=== PATIENT | female | born 2000 | race Caucasian/White ===

== ENCOUNTER 2020-01-13 23:43 | Observation (INO) | payer MEDICAID, SELFPAY ==
[2020-01-13 23:59] VITALS: BP 152/91; PULSE 72; RESP 16; TEMP 36.7; O2SAT 100; BMI 20.3
--- NOTE | 2020-01-14 00:14 | CT_ITS ---
EXAMINATION: CT ABDOMEN AND PELVIS WITHOUT CONTRAST CLINICAL INFORMATION: Abdominal pain, status post recent ovarian cyst removal COMPARISON: None TECHNIQUE: Multidetector volumetric imaging was performed from the superior aspect of the liver through the pubic symphysis. Sagittal and coronal reformatted images were obtained on the technologist's workstation. This CT examination was performed using dose optimization techniques as appropriate, variously including the following: *Automated exposure control *Adjustment of mA and/or kV according to patient size (this includes techniques or standardized protocols for targeted exams where dose is matched to indication/reason for exam; i.e. extremities or head) *Use of iterative reconstruction technique DLP: 392 mGy-cm FINDINGS: LUNG BASES: The visualized lung bases are unremarkable. LIVER, GALLBLADDER, AND BILIARY TREE: The liver is normal in size, shape, and attenuation. No focal hepatic lesion or biliary ductal dilatation is present. The gallbladder is unremarkable with no evidence of radiopaque gallstones, gallbladder wall thickening, or obvious pericholecystic inflammatory changes. PANCREAS: Unremarkable. SPLEEN: Unremarkable. ADRENAL GLANDS: Unremarkable. KIDNEYS AND URETERS: The kidneys are normal in size, shape, and attenuation. No hydronephrosis, hydroureter, or calculi seen. No perinephric stranding. BLADDER: Unremarkable. GASTROINTESTINAL TRACT: The small and large bowel are unremarkable. The appendix is unremarkable. ABDOMINAL WALL: Small foci of free air noted in the lower anterior abdominal wall, presumably postoperative. LYMPH NODES: No lymphadenopathy is seen, though assessment is limited in the absence of intravenous contrast. VASCULAR: Unremarkable. PELVIC VISCERA: Suboptimal assessment without intravenous contrast. Small to moderate volume of free fluid in the posterior pelvis, with a small amount of layering hyperdensity suggesting blood products in the setting of recent surgery. Scattered free air is present, presumably postoperative given the patient history. OSSEOUS STRUCTURES: Unremarkable. CT/CT abdomen pelvis wo con IMPRESSION: Small to moderate amount of layering pelvic free fluid, with some dependent hyperdensity suggesting blood products in the setting of recent surgery. Limited assessment for organized collection without intravenous contrast. Scattered foci of gas in the abdomen/pelvis and abdominal wall, presumably postoperative.
[2020-01-14] MEDS: ondansetron HCL 4 MG/2 ML VIAL IVPUSH ×2 (00:49→08:22)
[2020-01-14] MEDS: LORazepam 2 MG/ML VIAL 1 MG IVPUSH (00:49)
[2020-01-14 00:50] LABS: MANUAL DIFF FLAG NO
[2020-01-14] MEDS: 0.9 % Sodium Chloride 500 ML 1000 ML IV (00:52)
[2020-01-14 00:56] LABS: Basophils Percent Auto 0.2 % (0-2); Eosinophils Percent Auto 0.1 % (0-4); Hematocrit 38.6 % (37-47); Hemoglobin 13.2 g/dl (12.0-16.0); Imm Gran Abs Auto 0.09 X10*3/uL (0.00-0.03); Imm Gran Pct Auto 0.5 % (0.0-0.4); Lymphocytes Percent Auto 11.6 % (20-40); Mean Corpuscular HGB Conc 34.2 g/dl (31.0-35.0); Mean Corpuscular Hemoglobin 29.1 pg (27.0-33.0); Monocytes Absolute Auto 0.9 X10*3/uL (0.1-1.2); Monocytes Percent Auto 5.4 % (2-11); Neutrophils Percent Auto 82.2 % (45-73); Platelet Count 329 X10*3/uL (160-400); Red Blood Count 4.54 X10*6/uL (4.20-5.50)
--- NOTE | 2020-01-14 00:56 | ED_ITS ---
HPI - Abdominal Pain General Chief Complaint: Abdominal Pain Stated Complaint: vomiting Time Seen by Provider: 01/14/20 00:07 Source: patient Mode of arrival: ambulatory Limitations: no limitations History of Present Illness HPI narrative: 19-year-old female who is status post left ovarian cyst removal at [facility], patient developed abdominal pain and nausea and vomiting after the procedures, patient presented twice to [facility] ER (ER record were requested) according the patient statement 'they did nothing for her' patient appears very anxious, vomiting, complaining of diffuse abdominal pain. Descri bed it as a constant pain, patient rated the pain as severe, nothing makes the pain worse or better, pain was associated with nausea and vomiting, and anxiety. Related Data Allergies Allergy/AdvReac Type Severity Reaction Status Date / Time haloperidol [From Haldol] AdvReac Unknown Verified 01/14/20 00:14 Review of Systems Review of Systems All other systems are reviewed and are negative Constitutional: Reports as per HPI and Reports no additional constitutional complaints Eyes: Reports as per HPI and Reports no additional eye complaints Reports system reviewed and no additional complaints, except as documented Cardiovascular: Reports as per HPI and Reports no additional cardiovascular complaints Respiratory: Reports as per HPI and Reports no additional respiratory complaints Gastrointestinal: Reports as per HPI and Reports no additional gastrointestinal complaints Genitourinary: Reports no additional female genitourinary complaints Musculoskeletal: Reports no additional musculoskeletal complaints Skin/Breast: Reports system reviewed and no additional complaints, except as docu Psychiatric: Reports no additional psychiatric complaints Endocrine: Reports no additional endocrine complaints Hematologic/Lymphatic: Reports no additional hematologic/lymphatic complaints Allergic/Immunologic: Reports no additional allergic/immunologic complaints Reports system reviewed and no additional complaints, except as documented and Reports Abnormal speech present Physical Exam Vital Signs: Vital Signs: Vital Signs Temp Pulse Resp BP Pulse Ox 01/13/20 23:59 98.0 F 72 16 152/91 H 100 Body Mass Index 20.3 vital signs have been reviewed as normal and appeared to be correct. Hypertensive. Heart rate normal. Respiration rate normal. Temperature normal. Oxygen saturation normal. Appearance: Alert. Oriented X3. anxious. Head: Normal external exam. Normocephalic. Atraumatic. No [place] signs noted. No raccoon eyes noted Eyes: PERRLA. EOMI. Conjunctiva and sclera normal. Eyelids normal. ENT: EAC normal. TM's Normal. Pharynx normal. Uvula midline. Moist mucous membranes. No trismus noted. No drooling noted. No muffled voice noted. Neck: Normal inspection. Neck supple. FROM. No adenopathy. Thyroid Normal. No meningeal signs. No neck mass noted. CVS: Normal heart rate and rhythm. Heart sound normal. No murmurs noted. Pulses normal throughout. Respiratory: No respiratory distress. Painless inspiration. Breath sounds normal. No wheezes/rales/rhonchi noted. Chest nontender. No accessory muscle usage noted or decreased air movement noted. Abdomen: incisions are dry, clean, and intact, tenderness. Bowel sounds normal in all 4 quadrants. No distention noted. No organomegaly noted. No visible i njury noted. Back: No CVA tenderness. Full range of motion noted. Skin: Skin warm and dry. Normal skin color. Normal skin turgor. No rashes/lesions/lacerations noted. Extremities: No lower extremity edema. Extremities exhibit normal range of motion. Extremities nontender. Neuro: Oriented X 3. No motor deficit. No sensory deficit. Reflexes normal. MDM - Abdominal Pain MDM Narrative Medical decision making narrative: Assessment and plan. 19-year-old female status post left ovarian cyst removal at [facility] week ago, patient had 2 visits to [facility] ER after the surgery, multiple medications to control patient's symptoms given in the emergency department with no relief of her symptoms, patient had a CT which showed postoperative change. admit the patient for intractable vomiting, hydration, aggressive antiemetic medication. Lab Data Result diagrams: 01/14/20 00:43 01/14/20 00:43 Labs: Lab Results 01/14/20 01/14/20 01/14/20 Range/Units 00:43 00:43 00:43 WBC 17.0 H (4.8-10.8) X10*3/uL RBC 4.54 (4.20-5.50) X10*6/uL Hgb 13.2 (12.0-16.0) g/dl Hct 38.6 (37-47) % MCV 85.0 (80-98) fL MCH 29.1 (27.0-33.0) pg MCHC 34.2 (31.0-35.0) g/dl RDW 13.0 (11.0-16.0) % Plt Count 329 (160-400) X10*3/uL MPV 10.0 (9.4-12.3) fL Immature Gran % (Auto) 0.5 H (0.0-0.4) % Neut % (Auto) 82.2 H (45-73) % Lymph % (Auto) 11.6 L (20-40) % [place] % (Auto) 5.4 (2-11) % Eos % (Auto) 0.1 (0-4) % Baso % (Auto) 0.2 (0-2) % Lymph # (Auto) 2.0 (1.2-4.9) X10*3/uL [place] # (Auto) 0.9 (0.1-1.2) X10*3/uL Eos # (Auto) 0.0 (0.0-0.4) X10*3/uL Baso # (Auto) 0.0 (0.0-0.2) X10*3/uL Abs Immat Gran (auto) 0.09 H (0.00-0.03) X10*3/uL Absolute Neuts (auto) 14.0 H (2.0-8.3) X10*3/uL Absolute Nucleated RBC 0.000 (0.0-0.012) X10*3/uL Nucleated RBC % (auto) 0.0 (0.0-0.2) /100WBC Sodium 140 (135-145) mmol/L Potassium 3.5 (3.3-5.1) mmol/l Chloride 103 (96-108) mmol/L Carbon Dioxide 23 (22-29) mmol/L Anion Gap 18 (12-20) BUN 9 (9-16) mg/dL Creatinine 0.72 (0.5-1.4) mg/dL Estim Creat Clear Calc 102.6 Estimated GFR > 60 Random Glucose 123 H (60-115) mg/dL Calcium 9.5 (8.4-10.2) mg/dL Total Bilirubin 0.7 (0.0-1.0) mg/dL Direct Bilirubin 0.3 (0.0-0.5) mg/dL AST 18 (5-31) U/L ALT 14 (0-31) U/L Alkaline Phosphatase 64 (39-117) U/L Total Protein 7.5 (6.5-8.0) g/dL Albumin 4.8 (3.5-5.0) g/dL Lipase 20 (8-78) U/L Beta HCG, Quant < 2 mIU/mL Urine Color Urine Appearance Urine pH (5.0-8.0) Ur Specific [place] (1.005-1.025) Urine Protein (NEG-TRACE) MG/DL Urine Glucose (UA) (NEG) MG/DL Urine Ketones (NEG) MG/DL Urine Blood (NEG) Urine Nitrite (NEG) Ur Leukocyte Esterase (NEG) Urine RBC (0) /HPF Urine WBC (0-4) /HPF Ur Squamous Epith Cells /LPF Urine Bacteria /LPF Urine Test (NEGATIVE) 01/14/20 01/14/20 Range/Units 00:55 00:55 WBC (4.8-10.8) X10*3/uL RBC (4.20-5.50) X10*6/uL Hgb (12.0-16.0) g/dl Hct (37-47) % MCV (80-98) fL MCH (27.0-33.0) pg MCHC (31.0-35.0) g/dl RDW (11.0-16.0) % Plt Count (160-400) X10*3/uL MPV (9.4-12.3) fL Immature Gran % (Auto) (0.0-0.4) % Neut % (Auto) (45-73) % Lymph % (Auto) (20-40) % [place] % (Auto) (2-11) % Eos % (Auto) (0-4) % Baso % (Auto) (0-2) % Lymph # (Auto) (1.2-4.9) X10*3/uL [place] # (Auto) (0.1-1.2) X10*3/uL Eos # (Auto) (0.0-0.4) X10*3/uL Baso # (Auto) (0.0-0.2) X10*3/uL Abs Immat Gran (auto) (0.00-0.03) X10*3/uL Absolute Neuts (auto) (2.0-8.3) X10*3/uL Absolute Nucleated RBC (0.0-0.012) X10*3/uL Nucleated RBC % (auto) (0.0-0.2) /100WBC Sodium (135-145) mmol/L Potassium (3.3-5.1) mmol/l Chloride (96-108) mmol/L Carbon Dioxide (22-29) mmol/L Anion Gap (12-20) BUN (9-16) mg/dL Creatinine (0.5-1.4) mg/dL Estim Creat Clear Calc Estimated GFR Random Glucose (60-115) mg/dL Calcium (8.4-10.2) mg/dL Total Bilirubin (0.0-1.0) mg/dL Direct Bilirubin (0.0-0.5) mg/dL AST (5-31) U/L ALT (0-31) U/L Alkaline Phosphatase (39-117) U/L Total Protein (6.5-8.0) g/dL Albumin (3.5-5.0) g/dL Lipase (8-78) U/L Beta HCG, Quant mIU/mL Urine Color STRAW Urine Appearance CLEAR Urine pH 8.5 H (5.0-8.0) Ur Specific [place] 1.020 (1.005-1.025) Urine Protein NEG (NEG-TRACE) MG/DL Urine Glucose (UA) NEG (NEG) MG/DL Urine Ketones >=80 (NEG) MG/DL Urine Blood 2+ H (NEG) Urine Nitrite NEG (NEG) Ur Leukocyte Esterase NEG (NEG) Urine RBC 0 (0) /HPF Urine WBC 0-2 (0-4) /HPF Ur Squamous Epith Cells 3+ /LPF Urine Bacteria NONE /LPF Urine Test NEGATIVE (NEGATIVE) Imaging Data CT scan - abdomen: Radiologist's impression: Small to moderate amount of layering pelvic free fluid, with some dependent hyperdensity suggesting blood products in the setting of recent surgery. Limited assessment for organized collection without intravenous contrast. Scattered foci of gas in the abdomen/pelvis and abdominal wall, presumably postoperative. Discharge Plan Discharge Clinical Impression: Intractable vomiting Patient Disposition: Admitted As Inpatient [facility] Past Medical History Medical History ADHD Anxiety Asthma Ovarian cyst Social History Social History Advance Directives: No Advance Directives Information Provided: Yes
[2020-01-14 01:03] LABS: Glucose Urine UA NEG (NEG); Leukocyte Esterase Urine NEG (NEG); Nitrite Urine NEG (NEG); PH 8.5 (5.0-8.0); Urine Blood 2+ (NEG); Urine Ketones >=80 MG/DL (NEG); Urine Protein NEG (NEG-TRACE)
[2020-01-14 01:04] LABS: Appearance Urine CLEAR; Color Urine STRAW; UPreg QC Valid YES; Urine Pregnancy NEGATIVE (NEGATIVE)
[2020-01-14 01:09] LABS: RBC Urine 0 /HPF (0); Squamous Epithelial Cell Urine 3+ /LPF; WBC Urine 0-2 /HPF (0-4)
[2020-01-14 01:13] LABS: Anion Gap 18 (12-20); Blood Urea Nitrogen 9 mg/dL (9-16); Calcium 9.5 mg/dL (8.4-10.2); Carbon Dioxide 23 mmol/L (22-29); Chloride 103 mmol/L (96-108); Creatinine Clr Calc Pharmacy 102.6; Estimated Glomerular Filt Rate > 60; Glucose Random 123 mg/dL (60-115); Lipase 20 U/L (8-78); Potassium 3.5 mmol/l (3.3-5.1); Sodium 140 mmol/L (135-145)
[2020-01-14 01:14] LABS: Alanine Aminotransferase 14 U/L (0-31); Albumin Level 4.8 g/dL (3.5-5.0); Alkaline Phosphatase 64 U/L (39-117); Aspartate Amino Transferase 18 U/L (5-31); Bilirubin Direct 0.3 mg/dL (0.0-0.5); Bilirubin Total 0.7 mg/dL (0.0-1.0); Total Protein 7.5 g/dL (6.5-8.0)
[2020-01-14 01:20] LABS: HCG Quantitative < 2 mIU/mL
[2020-01-14] MEDS: Morphine Sulfate 2 MG/ML CARTRIDGE 1 MG IVPUSH (01:59)
[2020-01-14] MEDS: Metoclopramide HCl 10 MG/2 ML VIAL IVPUSH (01:59)
[2020-01-14 02:04] VITALS: BP 137/102; PULSE 56; RESP 16; O2SAT 100
--- NOTE | 2020-01-14 02:11 | PC.NURSE ---
Pt medicated with morphine and reglan as charted. Pt less distressed at this time than upon arrival. Pt immediately became more relaxed after morphine admin, lights lowered for pt rest.
--- NOTE | 2020-01-14 02:37 | P.HPIM_ITS ---
History of Present Illness Date of Service: 01/14/20 Chief Complaint: Nausea/vomiting this is a 19-year-old female with past medical history of asthma presents to the hospital with nausea vomiting. Patient reports that she underwent an ovarian cyst removal at [facility] on Tuesday but started developing nausea and vomiting yesterday the which improved to slightly through the day but reoccurred in the evening prior to presentation. Patient denies any fever or chills, no abdominal pain, no urinary symptoms and no vaginal discharge. She reports no complications from the surgery. She reports mild constipation as a result of the surgery but otherwise has no other complaints. She smokes marijuana daily and reports that taking a hot shower usually really helped with the nausea although tonight she did not receive any relief. Patient otherwise denies any headache, change in vision, chest pain, shortness of breath, no lower extremity edema. No numbness returned on arrival to the ED hemodynamically stable except for of elevated blood pressure. Labs are significant for WBC count of 17,[address] otherwise [address]able. UA negative. CT abdomen shows small to moderate amount of layering pelvic free fluid with some dependent hyperdensity suggesting blood products in the setting of recent surgery. Scattered foci of gas in the abdomen pelvis and abdominal 1 presumably postoperatively. Past medical history: Asthma , ADHD, anxiety surgical history: Denies Family history: Crohn's disease in father Social history: Comes from home, denies tobacco, alcohol. Smokes marijuana with no other illicit drugs Review of Systems Review of Systems: Yes all other systems are reviewed and are negative [facility] Medical History ADHD Anxiety Asthma Ovarian cyst Social History Advance Directives: No Advance Directives Information Provided: Yes Meds Allergies Allergy/AdvReac Type Severity Reaction Status Date / Time haloperidol [From Haldol] AdvReac Unknown Verified 01/14/20 00:14 Home Medications Medication Instructions Recorded Confirmed Type albuterol sulfate [ProAir HFA] 2 puff INHALATION Q4-6H PRN 01/14/20 01/14/20 History dextroamphetamine-amphetamine 30 mg PO DAILY 01/14/20 01/14/20 History [Adderall] Physical Exam Vital Signs and Narrative: Vital Signs: Last Vital Signs Temp 98.0 F 01/13/20 23:59 Pulse 56 01/14/20 02:04 Resp 16 01/14/20 02:04 BP 137/102 H 01/14/20 02:04 Pulse Ox 100 01/14/20 02:04 Body Mass Index 20.3 Const: General: cooperative and no acute distress Orientati on/consciousness: patient oriented x3 Eyes: General: appearance normal, both eyes and all related structures Pupils: Equal, round and reactive pupils present Resp: Effort & Inspection: normal respiratory effort and able to speak in complete sentences Auscultation: clear to auscultation bilaterally Cardio: Rate: regular rate Rhythm: regular rhythm GI: Palpation (GI): Soft to palpation Auscultation: normal bowel sounds Skin: General skin exam: no rashes or lesions noted Neuro: General: patient oriented x3 Cranial nerves: Yes Equal, round and reactive pupils present Cognition (Neuro): normal cognition Extrem: General: Yes normal to inspection and Yes no pedal edema Results Labs Labs: Laboratory Tests 01/14/20 01/14/20 01/14/20 00:43 00:43 00:43 WBC 17.0 H RBC 4.54 Hgb 13.2 Hct 38.6 MCV 85.0 MCH 29.1 MCHC 34.2 RDW 13.0 Plt Count 329 MPV 10.0 Immature Gran % (Auto) 0.5 H Neut % (Auto) 82.2 H Lymph % (Auto) 11.6 L [place] % (Auto) 5.4 Eos % (Auto) 0.1 Baso % (Auto) 0.2 Lymph # (Auto) 2.0 [place] # (Auto) 0.9 Eos # (Auto) 0.0 Baso # (Auto) 0.0 Abs Immat Gran (auto) 0.09 H Absolute Neuts (auto) 14.0 H Absolute Nucleated RBC 0.000 Nucleated RBC % (auto) 0.0 Sodium 140 Potassium 3.5 Chloride 103 Carbon Dioxide 23 Anion Gap 18 BUN 9 Creatinine 0.72 Estim Creat Clear Calc 102.6 Estimated GFR > 60 Random Glucose 123 H Calcium 9.5 Total Bilirubin 0.7 Direct Bilirubin 0.3 AST 18 ALT 14 Alkaline Phosphatase 64 Total Protein 7.5 Albumin 4.8 Lipase 20 Beta HCG, Quant < 2 Urine Color Urine Appearance Urine pH Ur Specific [place] Urine Protein Urine Glucose (UA) Urine Ketones Urine Blood Urine Nitrite Ur Leukocyte Esterase Urine RBC Urine WBC Ur Squamous Epith Cells Urine Bacteria Urine Test 01/14/20 01/14/20 00:55 00:55 WBC RBC Hgb Hct MCV MCH MCHC RDW Plt Count MPV Immature Gran % (Auto) Neut % (Auto) Lymph % (Auto) [place] % (Auto) Eos % (Auto) Baso % (Auto) Lymph # (Auto) [place] # (Auto) Eos # (Auto) Baso # (Auto) Abs Immat Gran (auto) Absolute Neuts (auto) Absolute Nucleated RBC Nucleated RBC % (auto) Sodium Potassium Chloride Carbon Dioxide Anion Gap BUN Creatinine Estim Creat Clear Calc Estimated GFR Random Glucose Calcium Total Bilirubin Direct Bilirubin AST ALT Alkaline Phosphatase Total Protein Albumin Lipase Beta HCG, Quant Urine Color STRAW Urine Appearance CLEAR Urine pH 8.5 H Ur Specific [place] 1.020 Urine Protein NEG Urine Glucose (UA) NEG Urine Ketones >=80 Urine Blood 2+ H Urine Nitrite NEG Ur Leukocyte Esterase NEG Urine RBC 0 Urine WBC 0-2 Ur Squamous Epith Cells 3+ Urine Bacteria NONE Urine Test NEGATIVE Imaging CT scan - pelvis: Radiologist's impression: IMPRESSION: Small to moderate amount of layering pelvic free fluid, with some dependent hyperdensity suggesting blood products in the setting of recent surgery. Limited assessment for organized collection without intravenous contrast. Scattered foci of gas in the abdomen/pelvis and abdominal wall, presumably postoperative. Assessment and Plan (1) Intractable vomiting: Qualifiers: Nausea presence: with nausea Vomiting type: unspecified Qualified Code(s): R11.2 - Nausea with vomiting, unspecified Status: Acute (2) S/P removal of ovarian cyst: Status: Acute (3) Leukocytosis: Status: Acute (4) Asthma: Status: Acute (5) ADHD: Status: Acute # intractable vomiting - most likely secondary to cyclic vomiting syndrome in the setting of marijuana use versus surgical complication less likely - daily marijuana smoker and reports relief with hot showers typical of cyclic vomiting syndrome plan: - IV fluids, antiemetics - supportive measures - counseled extensively on avoiding marijuana # leukocytosis - most likely reactive - afebrile, no other evidence of infection - CT abdomen/pelvis negative - UA negative Plan: - IV fluids - follow CBC - if continues to have elevations of leukocytosis consider workup # s/p removal of ovarian cyst - no evidence of complications # asthma - no exacerbation - continue p.r.n. inhaler DVT prophylaxis: Early ambulation
[2020-01-14 04:00] VITALS: BP 144/85; PULSE 70; RESP 19; TEMP 36.2; O2SAT 99
[2020-01-14] MEDS: Lactated Ringers 1,000 ML 100 ML IVCONT ×2 (04:41→13:03)
[2020-01-14] MEDS: Morphine Sulfate 4 MG/ML CARTRIDGE IVPUSH (05:20)
[2020-01-14 07:18] VITALS: BP 122/68; PULSE 63; RESP 18; TEMP 36.6; O2SAT 100
--- NOTE | 2020-01-14 09:10 | MHC.CM.PN ---
LOPEZ 01/14/20 Female @) DX N/V. Pt S/P removal of ovarian cyst @ [facility], last week. Pt had been to [facility] x2 since the surgery. [place] [facility] [place] complication work up. Pt lives with family. She is independent all functional mobility. DP home no services family transport.
--- NOTE | 2020-01-14 10:58 | MHC.CM.PN ---
DC today to home no services family transport
[2020-01-14] MEDS: Morphine Sulfate 2 MG/ML CARTRIDGE IVPUSH (11:08)
[2020-01-14 12:00] VITALS: BP 111/67; PULSE 75; RESP 19; TEMP 36.6; O2SAT 100
[2020-01-14 15:16] VITALS: BP 134/85; PULSE 77; RESP 18; TEMP 36.8; O2SAT 100
--- NOTE | 2020-01-14 17:50 | PM.GYNCN ---
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 The patient is feeling much better no more abdominal pain, no nausea or vomiting, patient tolerated regular diet ambulating and voiding freely, passing gas and bowel movements. 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 - Results Labs CBC & Chem 7: 01/14/20 00:43 01/14/20 00:43 Labs: Short CBC 01/14/20 Range/Units 00:43 WBC 17.0 H (4.8-10.8) X10*3/uL Hgb 13.2 (12.0-16.0) g/dl Hct 38.6 (37-47) % Plt Count 329 (160-400) X10*3/uL BMP 01/14/20 00:43 Sodium 140 Potassium 3.5 Chloride 103 Carbon Dioxide 23 BUN 9 Creatinine 0.72 Calcium 9.5 Liver Function 01/14/20 Range/Units 00:43 Total Bilirubin 0.7 (0.0-1.0) mg/dL Direct Bilirubin 0.3 (0.0-0.5) mg/dL AST 18 (5-31) U/L ALT 14 (0-31) U/L Alkaline Phosphatase 64 (39-117) U/L Albumin 4.8 (3.5-5.0) g/dL Urine 01/14/20 01/14/20 Range/Units 00:55 00:55 Urine Color STRAW Urine Appearance CLEAR Urine pH 8.5 H (5.0-8.0) Ur Specific [place] 1.020 (1.005-1.025) Urine Protein NEG (NEG-TRACE) MG/DL Urine Glucose (UA) NEG (NEG) MG/DL Urine Test NEGATIVE (NEGATIVE) Assessment and Plan (1) Post-operative state: Problem details: postop day 5. Status post laparoscopic ovarian cystectomy Status: Acute Since the patient is pain free, no more nausea and vomiting no GI or symptoms, no fever, CT scan is negative the clinical condition is reassured. Recommend repeat CBC to make sure leukocytosis improving. Instruction given to the patient to call or come to the emergency room if any of the following symptoms occur fever nausea and vomiting, heavy vaginal bleeding, incisional redness or discharge, nausea and vomiting, inability to pass gas or above. All questions answered patient verbalized understand
--- NOTE | 2020-01-14 17:56 | P.DS_ITS ---
DS: Providers Provider Date of admission: 01/14/20 02:36 Primary care physician: Anamaria Dotson MD Consults: 01/14/20 07:46 Consult to Obstetrics / Gynecology Routine Consulting Provider: [facility] Reason for consultation: recent ovarian cyst removal now with nausea vomiting DS: Diagnosis Discharge Diagnosis (1) Intractable vomiting: Status: Resolved (2) Leukocytosis: Status: Acute (3) Asthma: Status: Acute (4) ADHD: Status: Acute DS: Summary Hospital Course Hospital Course: 19-year-old female with recent laparoscopic ovarian cyst removal admitted with intractable nausea vomiting and abdominal pain, CT abdomen on admission shows layering of fluid likely blood products from recent surgery , but no other acute abnormality, patient was started on IV Zofran and supportive treatment, nausea and vomiting was likely secondary to marijuana use, patient nausea vomiting resolved, abdominal pain resolved, homeopathic doctor red was consulted recommended no surgical intervention , cleared by homeopathic doctor, was tolerating regular diet, leukocytosis was likely reactive and resolved, patient was stable discharged home Time Spent with Patient Time attestation: Total time spent providing and/or coordinating discharge services: Physical Exam Vital Signs: Vital Signs: Vital Signs Temp Pulse Resp BP Pulse Ox 01/14/20 15:16 98.2 F 77 18 134/85 100 01/14/20 12:00 97.9 F 75 19 111/67 100 01/14/20 07:18 97.8 F 63 18 122/68 100 01/14/20 04:00 97.2 F 70 19 144/85 H 99 01/14/20 02:04 56 16 137/102 H 100 01/13/20 23:59 98.0 F 72 16 152/91 H 100 Body Mass Index 20.3 Const: General: cooperative and no acute distress Orientation/consciousness: patient oriented x3 Eyes: General: appearance normal, both eyes and all related structures Pupils: Equal, round and reactive pupils present Resp: Effort & Inspection: normal respiratory effort and able to speak in complete sentences Auscultation: clear to auscultation bilaterally Cardio: Rate: regular rate Rhythm: regular rhythm GI: Palpation (GI): Soft to palpation Auscultation: normal bowel sounds Skin: General skin exam: no rashes or lesions noted Neuro: General: patient oriented x3 Cranial nerves: Yes Equal, round and reactive pupils present Cognition (Neuro): normal cognition Extrem: General: Yes normal to inspection and Yes no pedal edema DS: Data Data Completed and Pending Labs on day of discharge: Labs from last 24 hours 01/14/20 01/14/20 01/14/20 00:55 00:55 00:43 WBC RBC Hgb Hct MCV MCH MCHC RDW Plt Count MPV Immature Gran % (Auto) Neut % (Auto) Lymph % (Auto) [place] % (Auto) Eos % (Auto) Baso % (Auto) Lymph # (Auto) [place] # (Auto) Eos # (Auto) Baso # (Auto) Abs Immat Gran (auto) Absolute Neuts (auto) Absolute Nucleated RBC Nucleated RBC % (auto) Sodium Potassium Chloride Carbon Dioxide Anion Gap BUN Creatinine Estim Creat Clear Calc Estimated GFR Random Glucose Calcium Total Bilirubin 0.7 Direct Bilirubin 0.3 AST 18 ALT 14 Alkaline Phosphatase 64 Total Protein 7.5 Albumin 4.8 Lipase Beta HCG, Quant Urine Color STRAW Urine Appearance CLEAR Urine pH 8.5 H Ur Specific [place] 1.020 Urine Protein NEG Urine Glucose (UA) NEG Urine Ketones >=80 Urine Blood 2+ H Urine Nitrite NEG Ur Leukocyte Esterase NEG Urine RBC 0 Urine WBC 0-2 Ur Squamous Epith Cells 3+ Urine Bacteria NONE Urine Test NEGATIVE 01/14/20 01/14/20 00:43 00:43 WBC 17.0 H RBC 4.54 Hgb 13.2 Hct 38.6 MCV 85.0 MCH 29.1 MCHC 34.2 RDW 13.0 Plt Count 329 MPV 10.0 Immature Gran % (Auto) 0.5 H Neut % (Auto) 82.2 H Lymph % (Auto) 11.6 L [place] % (Auto) 5.4 Eos % (Auto) 0.1 Baso % (Auto) 0.2 Lymph # (Auto) 2.0 [place] # (Auto) 0.9 Eos # (Auto) 0.0 Baso # (Auto) 0.0 Abs Immat Gran (auto) 0.09 H Absolute Neuts (auto) 14.0 H Absolute Nucleated RBC 0.000 Nucleated RBC % (auto) 0.0 Sodium 140 Potassium 3.5 Chloride 103 Carbon Dioxide 23 Anion Gap 18 BUN 9 Creatinine 0.72 Estim Creat Clear Calc 102.6 Estimated GFR > 60 Random Glucose 123 H Calcium 9.5 Total Bilirubin Direct Bilirubin AST ALT Alkaline Phosphatase Total Protein Albumin Lipase 20 Beta HCG, Quant < 2 Urine Color Urine Appearance Urine pH Ur Specific [place] Urine Protein Urine Glucose (UA) Urine Ketones Urine Blood Urine Nitrite Ur Leukocyte Esterase Urine RBC Urine WBC Ur Squamous Epith Cells Urine Bacteria Urine Test Discharge Plan Discharge Anticipated Discharge Date/Time: 01/14/20 17:44 Patient Disposition: Home, Self-Care Referrals: Anamaria Dotson MD [Primary Care Provider] - Discharge Medications: Continued dextroamphetamine-amphetamine [Adderall] 30 mg Tablet 30 mg PO DAILY RF: 0 albuterol sulfate [ProAir HFA] 90 mcg/actuation Hfa Aerosol Inhaler 2 puff INHALATION Q4-6H PRN (Reason: Shortness Of Breath Or Wheezing) RF: 0 No Action ondansetron 4 mg tablet,disintegrating 4 mg PO Q8H PRN (Reason: nausea and vomiting) Qty: 20 RF: 0 lorazepam [Ativan] 1 mg tablet 1 mg PO BEDTIME PRN (Reason: sleep) Qty: 10 RF: 0 hyoscyamine sulfate 0.125 mg tablet,disintegrating 0.125 mg PO QID PRN (Reason: dyspepsia) Qty: 10 RF: 0 ondansetron HCl [Zofran] 4 mg tablet 4 mg PO Q6H PRN (Reason: nausea and vomiting) Qty: 14 RF: 0 hydroxyzine HCl 50 mg tablet 50 mg PO TID PRN (Reason: nausea and vomiting) Qty: 10 RF: 0 Discharge Orders: Discharge Order (Routine); Ordered 01/14/20 Ordered By: Negro Gay Activity on Discharge: As tolerated Discharge Date/Time: 01/14/20 19:40 Visit Report Forms: Patient Portal Discharge page Care Plan Goals: treat symptoms Health Concerns: marijuana use Plan of Treatment: counseled on marijuana use
[2020-01-14 19:16] LABS: MANUAL DIFF FLAG SCAN; Mean Corpuscular HGB Conc 33.2 g/dl (31.0-35.0); Mean Corpuscular Hemoglobin 28.9 pg (27.0-33.0); PLT CLUMP 1; Red Cell Distribution Width 13.2 % (11.0-16.0); SCAN SMEAR FLAG 1
[2020-01-14 19:18] LABS: Basophils Percent Auto 0.1 % (0-2); Eosinophils Absolute Auto 0.1 X10*3/uL (0.0-0.4); Eosinophils Percent Auto 0.5 % (0-4); Hematocrit 36.1 % (37-47); Imm Gran Abs Auto 0.06 X10*3/uL (0.00-0.03); Imm Gran Pct Auto 0.4 % (0.0-0.4); Lymphocytes Absolute Auto 4.1 X10*3/uL (1.2-4.9); Lymphocytes Percent Auto 27.9 % (20-40); Mean Platelet Volume 11.4 fL (9.4-12.3); Monocytes Absolute Auto 1.1 X10*3/uL (0.1-1.2); Monocytes Percent Auto 7.1 % (2-11); Neutrophils Absolute Auto 9.5 X10*3/uL (2.0-8.3); Platelet Count 243 X10*3/uL (160-400); Red Blood Count 4.15 X10*6/uL (4.20-5.50); White Blood Count 14.8 X10*3/uL (4.8-10.8)
[2020-01-14 19:42] LABS: SLIDE REVIEW VERIFIED
== END 2020-01-14 19:40 | disposition home or self-care (01) ==
LOC: HO.ED 01-14 02:05 → HO.IMC 01-14 02:56
PROVIDERS: Admitting Provider Internal Medicine; Emergency Provider Emergency Medicine; PCP Pediatrics; Visit Provider Internal Medicine
DX: R10.9 Unspecified abdominal pain (principal); R11.0 Nausea; N99.89 Other postprocedural complications and disorders of genitourinary system; D72.829 Elevated white blood cell count, unspecified; J45.909 Unspecified asthma, uncomplicated; F90.9 Attention-deficit hyperactivity disorder, unspecified type; F41.9 Anxiety disorder, unspecified; I10 Essential (primary) hypertension; F12.20 Cannabis dependence, uncomplicated; Z71.51 Drug abuse counseling and surveillance of drug abuser; Z88.8 Allergy status to other drugs, medicaments and biological substances; Z79.899 Other long term (current) drug therapy; Z90.6 Acquired absence of other parts of urinary tract
CPT/HCPCS: 36415; 74176; 80048; 80076; 81001; 81025; 83690; 84702; 85025; 96361; 96374; 96375; 96376; 99219; 99285; J2060; J2270; J2405; J2765

== ENCOUNTER 2020-01-15 19:48 | Emergency (ER) | payer MEDICAID, SELFPAY ==
[2020-01-15 20:06] VITALS: BP 177/97; PULSE 89; RESP 26; TEMP 37.2; O2SAT 100
[2020-01-15 20:35] VITALS: BP 150/100; PULSE 72; RESP 16; TEMP 37.1; O2SAT 95; BMI 19.5
--- NOTE | 2020-01-15 21:16 | ED.ABDPAIN ---
HPI - Abdominal Pain General Chief Complaint: Abdominal Pain Stated Complaint: vomiting Time Seen by Provider: 01/15/20 21:16 Source: patient and old records reviewed Mode of arrival: ambulatory Limitations: other (won't answer questions, yelling, making very loud noises while being wheeled from triage) History of Present Illness HPI narrative: very difficult to get a history from but she states she had an ovary removed at [facility] last Tuesday they think I'm a fiend, they thought I liked the way the drugs felt. She states that she was then admitted here and taking ibuprofen and tylenol at home she also tried to smoke tonight THC but it didn't help. MD elicited complaint: abdominal pain Pertinent past history: other (just had laparoscopic ovarian cystectomy last Tuesday at [facility] admitted for pain control yesterday here and DC) Onset (ago): day(s) (since surgery ) Location: diffuse Severity: severe Quality: stabbing Radiation: none Migration to: no migration Exacerbating factors: nothing Relieving factors: nothing Context: recent surgery/procedure Associated symptoms: nausea and vomiting Treatments prior to arrival: NSAIDs Related Data Home Medications Medication Instructions Recorded Confirmed albuterol sulfate [ProAir HFA] 2 puff INHALATION Q4-6H PRN 01/14/20 01/14/20 dextroamphetamine-amphetamine 30 mg PO DAILY 01/14/20 01/14/20 [Adderall] Previous Rx's Medication Instructions Recorded lorazepam [Ativan] 1 mg PO BEDTIME PRN #10 tab 01/16/20 ondansetron 4 mg PO Q8H PRN #20 tab 01/16/20 Allergies Allergy/AdvReac Type Severity Reaction Status Date / Time haloperidol [From Haldol] AdvReac Unknown Verified 01/14/20 00:14 Review of Systems Review of Systems ROS unable to be obtained due to agitation, pain, won't answer questions. Physical Exam Vital Signs: Vital Signs: Vital Signs Temp Pulse Resp BP Pulse Ox 01/16/20 02:32 16 117/73 99 01/15/20 21:27 98.2 F 67 20 148/97 H 100 01/15/20 20:35 98.7 F 72 16 150/100 H 95 01/15/20 20:06 98.9 F 89 26 H 177/97 H 100 Body Mass Index 19.5 Appearance: Alert. Oriented X3. Crying loudly, kicking her legs repeatedly and moving up and down Eyes: Pupils equal, round and reactive to light. ENT: Pharynx normal. Neck: Normal inspection. Neck supple. CVS: Normal heart rate and rhythm. Pulses normal. Respiratory: No respiratory distress. Breath sounds normal. Abdomen: Soft and nontender at first but then the patient grimaces at times Skin: Skin warm and dry. Normal skin color. Normal skin turgor. Extremities: No lower extremity edema. No calf ttp Neuro: Oriented X 3. No motor deficit. No sensory deficit. Course Course Course Narrative: patient's degree of pain is out of proportion CT scan not done with IV contrast last time, at this time she is in severe anxiety, thrashing about - IV ativan 2mg ordered, stable VS repeat CT scan negative, troponin repeat negative, lactic stable, afebrile, currently asleep able to pass PO challenge, stable for DC, has been asleep for hours, WBC count due to vomiting MDM - Abdominal Pain MDM Narrative Medical decision making narrative: 19 yo female s/p lap ovarian cystectomy at [facility] 7 days ago comes in with pain and was just DC yesterday from here for pain n/v with post op normal CT scan, returns again for pain, her presentation is somewhat odd as she is moving all around and yelling I would expect with a surgical abdomen she would be more still - she also made some statements that the IV pain medications were helping and that [facility] labeled her as fiend . 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 Lab Data Result diagrams: 01/15/20 21:43 01/15/20 22:13 Labs: Lab Results 01/15/20 01/15/20 01/15/20 Range/Units 21:42 21:43 21:43 WBC 19.5 H (4.8-10.8) X10*3/uL RBC 4.64 (4.20-5.50) X10*6/uL Hgb 13.5 (12.0-16.0) g/dl Hct 39.7 (37-47) % MCV 85.6 (80-98) fL MCH 29.1 (27.0-33.0) pg MCHC 34.0 (31.0-35.0) g/dl RDW 13.2 (11.0-16.0) % Plt Count 345 D (160-400) X10*3/uL MPV 10.1 (9.4-12.3) fL Immature Gran % (Auto) Cancelled Neut % (Auto) Cancelled Lymph % (Auto) Cancelled [place] % (Auto) Cancelled Eos % (Auto) Cancelled Baso % (Auto) Cancelled Lymph # (Auto) Cancelled [place] # (Auto) Cancelled Eos # (Auto) Cancelled Baso # (Auto) Cancelled Abs Immat Gran (auto) Cancelled Absolute Neuts (auto) Cancelled Absolute Nucleated RBC 0.000 (0.0-0.012) X10*3/uL Nucleated RBC % (auto) 0.0 (0.0-0.2) /100WBC Neutrophils % (Manual) 86 H (45-73) % Lymphocytes % (Manual) 8 L (20-40) % Monocytes % (Manual) 5 (2-11) % Basophils % (Manual) 1 (0-1) % Abs Neuts (Manual) 16.8 H (2.2-7.9) X10*3/uL Lymphocytes # (Manual) 1.6 (0.6-4.8) X10*3/uL Monocytes # (Manual) 1.0 (0.0-1.2) X10*3/uL Basophils # (Manual) 0.2 (0.0-0.3) X10*3/uL Platelet Estimate NORMAL (NORMAL) Plt Morphology Comment NORMAL RBC Morphology NORMAL Sodium Cancelled Potassium Cancelled Chloride Cancelled Carbon Dioxide Cancelled Anion Gap Cancelled BUN Cancelled Creatinine Cancelled Estim Creat Clear Calc Cancelled Estimated GFR Cancelled Random Glucose Cancelled Lactic Acid (0.5-2.0) mmol/L Calcium Cancelled Magnesium Cancelled Total Bilirubin Cancelled Direct Bilirubin Cancelled AST Cancelled ALT Cancelled Alkaline Phosphatase Cancelled Total Creatine Kinase (26-140) U/L Troponin I High Sens 16.9 (<3.5-17.0) ng/L Total Protein Cancelled Albumin Cancelled Lipase Cancelled Urine Color Urine Appearance Urine pH (5.0-8.0) Ur Specific [place] (1.005-1.025) Urine Protein (NEG-TRACE) MG/DL Urine Glucose (UA) (NEG) MG/DL Urine Ketones (NEG) MG/DL Urine Blood (NEG) Urine Nitrite (NEG) Ur Leukocyte Esterase (NEG) Urine RBC (0) /HPF Urine WBC (0-4) /HPF Ur Squamous Epith Cells /LPF Amorphous Sediment /LPF Urine Bacteria /LPF Urine Opiates Screen (Not Detect) Ur Barbiturates Screen (Not Detect) Ur Phencyclidine Scrn (Not Detect) Ur Amphetamines Screen (Not Detect) U Benzodiazepines Scrn (Not Detect) Urine Cocaine Screen (Not Detect) U Marijuana (THC) Screen (Not Detect) 01/15/20 01/15/20 01/15/20 Range/Units 21:43 22:13 22:13 WBC (4.8-10.8) X10*3/uL RBC (4.20-5.50) X10*6/uL Hgb (12.0-16.0) g/dl Hct (37-47) % MCV (80-98) fL MCH (27.0-33.0) pg MCHC (31.0-35.0) g/dl RDW (11.0-16.0) % Plt Count (160-400) X10*3/uL MPV (9.4-12.3) fL Immature Gran % (Auto) Neut % (Auto) Lymph % (Auto) [place] % (Auto) Eos % (Auto) Baso % (Auto) Lymph # (Auto) [place] # (Auto) Eos # (Auto) Baso # (Auto) Abs Immat Gran (auto) Absolute Neuts (auto) Absolute Nucleated RBC (0.0-0.012) X10*3/uL Nucleated RBC % (auto) (0.0-0.2) /100WBC Neutrophils % (Manual) (45-73) % Lymphocytes % (Manual) (20-40) % Monocytes % (Manual) (2-11) % Basophils % (Manual) (0-1) % Abs Neuts (Manual) (2.2-7.9) X10*3/uL Lymphocytes # (Manual) (0.6-4.8) X10*3/uL Monocytes # (Manual) (0.0-1.2) X10*3/uL Basophils # (Manual) (0.0-0.3) X10*3/uL Platelet Estimate (NORMAL) Plt Morphology Comment RBC Morphology Sodium 139 Potassium 3.6 Chloride 102 Carbon Dioxide 25 Anion Gap 16 BUN 8 L Creatinine 0.74 Estim Creat Clear Calc 95.5 Estimated GFR > 60 Random Glucose 113 Lactic Acid 1.7 (0.5-2.0) mmol/L Calcium 9.1 Magnesium Total Bilirubin 0.6 Direct Bilirubin 0.3 AST 15 ALT 15 Alkaline Phosphatase 66 Total Creatine Kinase 157 H (26-140) U/L Troponin I High Sens (<3.5-17.0) ng/L Total Protein 7.4 Albumin 4.8 Lipase 26 Urine Color Urine Appearance Urine pH (5.0-8.0) Ur Specific [place] (1.005-1.025) Urine Protein (NEG-TRACE) MG/DL Urine Glucose (UA) (NEG) MG/DL Urine Ketones (NEG) MG/DL Urine Blood (NEG) Urine Nitrite (NEG) Ur Leukocyte Esterase (NEG) Urine RBC (0) /HPF Urine WBC (0-4) /HPF Ur Squamous Epith Cells /LPF Amorphous Sediment /LPF Urine Bacteria /LPF Urine Opiates Screen (Not Detect) Ur Barbiturates Screen (Not Detect) Ur Phencyclidine Scrn (Not Detect) Ur Amphetamines Screen (Not Detect) U Benzodiazepines Scrn (Not Detect) Urine Cocaine Screen (Not Detect) U Marijuana (THC) Screen (Not Detect) 01/15/20 01/15/20 01/15/20 Range/Units 22:13 22:42 22:42 WBC (4.8-10.8) X10*3/uL RBC (4.20-5.50) X10*6/uL Hgb (12.0-16.0) g/dl Hct (37-47) % MCV (80-98) fL MCH (27.0-33.0) pg MCHC (31.0-35.0) g/dl RDW (11.0-16.0) % Plt Count (160-400) X10*3/uL MPV (9.4-12.3) fL Immature Gran % (Auto) Neut % (Auto) Lymph % (Auto) [place] % (Auto) Eos % (Auto) Baso % (Auto) Lymph # (Auto) [place] # (Auto) Eos # (Auto) Baso # (Auto) Abs Immat Gran (auto) Absolute Neuts (auto) Absolute Nucleated RBC (0.0-0.012) X10*3/uL Nucleated RBC % (auto) (0.0-0.2) /100WBC Neutrophils % (Manual) (45-73) % Lymphocytes % (Manual) (20-40) % Monocytes % (Manual) (2-11) % Basophils % (Manual) (0-1) % Abs Neuts (Manual) (2.2-7.9) X10*3/uL Lymphocytes # (Manual) (0.6-4.8) X10*3/uL Monocytes # (Manual) (0.0-1.2) X10*3/uL Basophils # (Manual) (0.0-0.3) X10*3/uL Platelet Estimate (NORMAL) Plt Morphology Comment RBC Morphology Sodium Potassium Chloride Carbon Dioxide Anion Gap BUN Creatinine Estim Creat Clear Calc Estimated GFR Random Glucose Lactic Acid (0.5-2.0) mmol/L Calcium Magnesium 2.0 Total Bilirubin Direct Bilirubin AST ALT Alkaline Phosphatase Total Creatine Kinase (26-140) U/L Troponin I High Sens (<3.5-17.0) ng/L Total Protein Albumin Lipase Urine Color YELLOW Urine Appearance CLEAR Urine pH 8.5 H (5.0-8.0) Ur Specific [place] 1.025 (1.005-1.025) Urine Protein NEG (NEG-TRACE) MG/DL Urine Glucose (UA) NEG (NEG) MG/DL Urine Ketones >=80 (NEG) MG/DL Urine Blood 2+ H (NEG) Urine Nitrite NEG (NEG) Ur Leukocyte Esterase NEG (NEG) Urine RBC 1-4 (0) /HPF Urine WBC 1-4 (0-4) /HPF Ur Squamous Epith Cells 1+ /LPF Amorphous Sediment 2+ /LPF Urine Bacteria 1+ /LPF Urine Opiates Screen Not Detected (Not Detect) Ur Barbiturates Screen Not Detected (Not Detect) Ur Phencyclidine Scrn Not Detected (Not Detect) Ur Amphetamines Screen Not Detected (Not Detect) U Benzodiazepines Scrn Not Detected (Not Detect) Urine Cocaine Screen Not Detected (Not Detect) U Marijuana (THC) Screen POSITIVE H (Not Detect) 10/28/20 Range/Units 00:27 WBC (4.8-10.8) X10*3/uL RBC (4.20-5.50) X10*6/uL Hgb (12.0-16.0) g/dl Hct (37-47) % MCV (80-98) fL MCH (27.0-33.0) pg MCHC (31.0-35.0) g/dl RDW (11.0-16.0) % Plt Count (160-400) X10*3/uL MPV (9.4-12.3) fL Immature Gran % (Auto) Neut % (Auto) Lymph % (Auto) [place] % (Auto) Eos % (Auto) Baso % (Auto) Lymph # (Auto) [place] # (Auto) Eos # (Auto) Baso # (Auto) Abs Immat Gran (auto) Absolute Neuts (auto) Absolute Nucleated RBC (0.0-0.012) X10*3/uL Nucleated RBC % (auto) (0.0-0.2) /100WBC Neutrophils % (Manual) (45-73) % Lymphocytes % (Manual) (20-40) % Monocytes % (Manual) (2-11) % Basophils % (Manual) (0-1) % Abs Neuts (Manual) (2.2-7.9) X10*3/uL Lymphocytes # (Manual) (0.6-4.8) X10*3/uL Monocytes # (Manual) (0.0-1.2) X10*3/uL Basophils # (Manual) (0.0-0.3) X10*3/uL Platelet Estimate (NORMAL) Plt Morphology Comment RBC Morphology Sodium Potassium Chloride Carbon Dioxide Anion Gap BUN Creatinine Estim Creat Clear Calc Estimated GFR Random Glucose Lactic Acid (0.5-2.0) mmol/L Calcium Magnesium Total Bilirubin Direct Bilirubin AST ALT Alkaline Phosphatase Total Creatine Kinase (26-140) U/L Troponin I High Sens 14.9 (<3.5-17.0) ng/L Total Protein Albumin Lipase Urine Color Urine Appearance Urine pH (5.0-8.0) Ur Specific [place] (1.005-1.025) Urine Protein (NEG-TRACE) MG/DL Urine Glucose (UA) (NEG) MG/DL Urine Ketones (NEG) MG/DL Urine Blood (NEG) Urine Nitrite (NEG) Ur Leukocyte Esterase (NEG) Urine RBC (0) /HPF Urine WBC (0-4) /HPF Ur Squamous Epith Cells /LPF Amorphous Sediment /LPF Urine Bacteria /LPF Urine Opiates Screen (Not Detect) Ur Barbiturates Screen (Not Detect) Ur Phencyclidine Scrn (Not Detect) Ur Amphetamines Screen (Not Detect) U Benzodiazepines Scrn (Not Detect) Urine Cocaine Screen (Not Detect) U Marijuana (THC) Screen (Not Detect) ECG Data Attestation: I personally reviewed and interpreted this ECG as follows: ECG interpretation date: 01/15/20 ECG interpretation time: 22:01 Interpretation: Rate: 66 Rhythm: NSR Lennon: normal Normal P waves. Normal LUIZ. Normal QRS complex. ST T wave : normal qTC: normal prior studies: no acute findings The study has been interpreted contemporaneously by me. . Critical Care Time Critical Care Time Critical Care Time: Yes Total Critical Care Time: 60 Attestation: repeat medications, bedside assessment, CT scan, IVF, review old records. I personally attest to this time spent taking care of the patient Discharge Plan Discharge Clinical Impression: Cyclical vomiting Patient Disposition: Home, Self-Care Instructions: Cyclic Vomiting Syndrome (ED) Additional Instructions: stop smoking marijuana it is making you vomit Prescriptions: New ondansetron 4 mg tablet,disintegrating 4 mg PO Q8H PRN (Reason: nausea and vomiting) Qty: 20 RF: 0 lorazepam [Ativan] 1 mg tablet 1 mg PO BEDTIME PRN (Reason: sleep) Qty: 10 RF: 0 No Action dextroamphetamine-amphetamine [Adderall] 30 mg Tablet 30 mg PO DAILY RF: 0 albuterol sulfate [ProAir HFA] 90 mcg/actuation Hfa Aerosol Inhaler 2 puff INHALATION Q4-6H PRN (Reason: Shortness Of Breath Or Wheezing) RF: 0 Referrals: Anamaria Dotson MD [Primary Care Provider] - 2 days [facility] Past Medical History Medical History (Updated 01/16/20 @ 02:11 by Gregoria Venegas DO) ADHD Anxiety Asthma Ovarian cyst Surgical History S/P removal of ovarian cyst Social History Social History Household Members: Family Housing: Apartment Alcohol intake: never Smoking Status: Never smoker Substance Use Type: Marijuana Advance Directives: No Advance Directives Information Provided: No service: No Current occupational status: employed
[2020-01-15 21:27] VITALS: BP 148/97; PULSE 67; RESP 20; TEMP 36.8; O2SAT 100
--- NOTE | 2020-01-15 21:27 | ECG_ITS ---
Test Reason : CHEST PAIN/ANXIETY Blood Pressure : / mmHG Vent. Rate : 066 BPM Atrial Rate : 066 BPM P-R Int : 134 ms QRS Dur : 086 ms QT Int : 382 ms P-R-T Axes : 058 066 053 degrees QTc Int : 400 ms Normal sinus rhythm with sinus arrhythmia Normal ECG No previous ECGs available Referred By: Gregoria Venegas Electronically Signed By:ADAM MATTA MD
--- NOTE | 2020-01-15 21:27 | XR_ITS ---
EXAMINATION: PORTABLE CHEST 1 VIEW CLINICAL INFORMATION: cough . COMPARISON: No recent pertinent prior studies are available for comparison. TECHNIQUE: Portable frontal view of the chest was obtained. FINDINGS: The lungs are well expanded. No focal infiltrate, effusion, edema, or pneumothorax. Cardiac and mediastinal silhouettes are within normal limits for technique. No acute bony abnormality seen. XR/XR chest 1V IMPRESSION: No evidence of acute disease.
[2020-01-15 21:50] LABS: Hematocrit 39.7 % (37-47); Hemoglobin 13.5 g/dl (12.0-16.0); Mean Corpuscular Hemoglobin 29.1 pg (27.0-33.0); Mean Corpuscular Volume 85.6 fL (80-98); Mean Platelet Volume 10.1 fL (9.4-12.3); Platelet Count 345 X10*3/uL (160-400); Red Blood Count 4.64 X10*6/uL (4.20-5.50); Red Cell Distribution Width 13.2 % (11.0-16.0)
[2020-01-15] MEDS: Ketorolac Tromethamine 30 MG/ML VIAL IVPUSH (21:54)
[2020-01-15] MEDS: LORazepam 2 MG/ML VIAL 1 MG IVPUSH (21:55)
[2020-01-15] MEDS: diphenhydrAMINE HCL 50 MG/ML VIAL 25 MG IVPUSH (21:56)
[2020-01-15] MEDS: 0.9 % Sodium Chloride 1,000 ML 999 ML IVCONT (21:57)
[2020-01-15] MEDS: Metoclopramide HCl 10 MG/2 ML VIAL 5 MG IVPUSH (22:00)
[2020-01-15 22:10] LABS: Lactic Acid 1.7 mmol/L (0.5-2.0); WBC ABN SCTR FOR CBC 1
[2020-01-15 22:12] LABS: Basophils Percent Manual 1 % (0-1); Lymphocytes Percent Manual 8 % (20-40); Monocytes Percent Manual 5 % (2-11); Neutrophils Percent Manual 86 % (45-73); Platelet Estimate NORMAL (NORMAL); Platelet Morphology Comment NORMAL; RBC Morphology NORMAL
[2020-01-15 22:14] LABS: Basophils Abs Manual 0.2 X10*3/uL (0.0-0.3); Lymphocytes Absolute Manual 1.6 X10*3/uL (0.6-4.8); White Blood Count 19.5 X10*3/uL (4.8-10.8)
[2020-01-15 22:18] LABS: Neutrophils Absolute Manual 16.8 X10*3/uL (2.2-7.9)
[2020-01-15 22:20] LABS: Troponin-I High Sensitivity 16.9 ng/L (<3.5-17.0)
[2020-01-15] MEDS: LORazepam 2 MG/ML VIAL IVPUSH (22:44)
[2020-01-15 22:47] LABS: Alanine Aminotransferase 15 U/L (0-31); Albumin Level 4.8 g/dL (3.5-5.0); Alkaline Phosphatase 66 U/L (39-117); Aspartate Amino Transferase 15 U/L (5-31); Bilirubin Direct 0.3 mg/dL (0.0-0.5); Bilirubin Total 0.6 mg/dL (0.0-1.0); Total Protein 7.4 g/dL (6.5-8.0)
[2020-01-15 22:49] LABS: Anion Gap 16 (12-20); Blood Urea Nitrogen 8 mg/dL (9-16); Calcium 9.1 mg/dL (8.4-10.2); Carbon Dioxide 25 mmol/L (22-29); Chloride 102 mmol/L (96-108); Creatinine Clr Calc Pharmacy 95.5; Estimated Glomerular Filt Rate > 60; Glucose Random 113 mg/dL (60-115); Lipase 26 U/L (8-78); Potassium 3.6 mmol/l (3.3-5.1); Sodium 139 mmol/L (135-145)
[2020-01-15 22:49] LABS: Glucose Urine UA NEG (NEG); Leukocyte Esterase Urine NEG (NEG); Nitrite Urine NEG (NEG); PH 8.5 (5.0-8.0); Specific Gravity - Urine 1.025 (1.005-1.025); Urine Blood 2+ (NEG); Urine Ketones >=80 MG/DL (NEG); Urine Protein NEG (NEG-TRACE)
--- NOTE | 2020-01-15 22:51 | PC.NURSE ---
pt oob with a stable gait to bathroom. medicated per emar. Pt continues to cry out. Will continue monitor
[2020-01-15 23:00] LABS: Appearance Urine CLEAR; Color Urine YELLOW
[2020-01-15 23:01] LABS: Amorphous Sediment Urine 2+ /LPF; Bacteria Urine 1+ /LPF; Squamous Epithelial Cell Urine 1+ /LPF
[2020-01-15 23:37] LABS: Amphetamine Screen Urine Not Detected (Not Detect); Barbiturates, Urine Not Detected (Not Detect); Benzodiazepines Screen Urine Not Detected (Not Detect); Cannabinoid Screen Urine POSITIVE (Not Detect); Cocaine Screen Urine Not Detected (Not Detect); Opiate Screen Urine Not Detected (Not Detect); Phencyclidine Screen Urine Not Detected (Not Detect)
[2020-01-16] MEDS: iohexoL 350 MG/ML 100 ML INFUS..BTL 85 ML IV (00:31)
[2020-01-16 01:03] LABS: Troponin-I High Sensitivity 14.9 ng/L (<3.5-17.0)
--- NOTE | 2020-01-16 02:31 | PC.NURSE ---
pt has been sleeping rr even and reg. pt is now awake states she feels better and is given saltine crackers, gingeral and ice chips.
[2020-01-16 02:32] VITALS: BP 117/73; RESP 16; O2SAT 99
[2020-01-16 04:00] VITALS: BP 117/72; PULSE 81; RESP 16; TEMP 36.8; O2SAT 100
--- NOTE | 2020-01-16 05:09 | PC.NURSE ---
vitals at 0229 117/73 62 [phone] 14
--- NOTE | 2020-01-16 05:10 | PC.NURSE ---
pt george po fluids and crackers and feels ready for discharge.
--- NOTE | 2020-01-16 22:31 | CT_ITS ---
EXAMINATION: CT ABDOMEN AND PELVIS WITH CONTRAST CLINICAL INFORMATION: Severe abdominal pain. Status post left ovarian cystectomy. COMPARISON: 01/14/2020. TECHNIQUE: Multidetector volumetric images were obtained from the superior aspect of the liver through the pubic symphysis following administration 85 mL of Omnipaque 350 intravenous contrast. Sagittal and coronal reformatted images were obtained on the technologist's workstation. Oral contrast: No This CT examination was performed using dose optimization techniques as appropriate, variously including the following: *Automated exposure control *Adjustment of mA and/or kV according to patient size (this includes techniques or standardized protocols for targeted exams where dose is matched to indication/reason for exam; i.e. extremities or head) *Use of iterative reconstruction technique DLP: 385 mGy-cm FINDINGS: LUNG BASES: The visualized lung bases are unremarkable. LIVER, GALLBLADDER, AND BILIARY TREE: The liver is normal in size, shape, and attenuation. No focal hepatic lesion or biliary ductal dilatation is present. The gallbladder is unremarkable with no evidence of radiopaque gallstones, gallbladder wall thickening, or obvious pericholecystic inflammatory changes. PANCREAS: Unremarkable. SPLEEN: Unremarkable. ADRENAL GLANDS: Unremarkable. KIDNEYS AND URETERS: The kidneys are normal in size, shape, and attenuation. No hydronephrosis, hydroureter, or calculi seen. No perinephric stranding. BLADDER: Unremarkable. GASTROINTESTINAL TRACT: The stomach is unremarkable. Normal caliber small bowel. No obstruction. No colonic wall thickening. There is a small amount of free air identified, which is decreased from the recent prior study. Redemonstration of pelvic free fluid, similar to prior. ABDOMINAL WALL: No significant hernia is appreciated. Decreasing gas in the subcutaneous tissues. LYMPH NODES: Normal. VASCULAR: Unremarkable. PELVIC VISCERA: The uterus is unremarkable. No adnexal mass identified. Small amount of fluid layering in the pelvis is similar to prior. There is no definite formed collection at this time. 2.2 cm apparent cystic structure in the right adnexal region, likely unchanged. OSSEOUS STRUCTURES: No acute or suspicious osseous abnormality. CT/CT abdomen pelvis w con IMPRESSION: Small amount of pelvic free fluid is again noted, similar to the prior study. No significant organization since the previous study. There is a cystic structure in the right adnexal region which is unchanged. Decreasing free intraperitoneal air.
== END 2020-01-16 05:19 | disposition home or self-care (01) ==
PROVIDERS: Emergency Provider Emergency Medicine; PCP Pediatrics
DX: R11.15 Cyclical vomiting syndrome unrelated to migraine (principal); R10.9 Unspecified abdominal pain; R07.89 Other chest pain; Z79.899 Other long term (current) drug therapy
CPT/HCPCS: 36415; 71045; 74177; 80048; 80076; 80307; 81001; 82550; 83605; 83690; 83735; 84484; 85007; 85025; 85027; 93005; 96361; 96374; 96375; 96376; 99284; 99291; J1200; J1885; J2060; J2765; Q9967

== ENCOUNTER 2020-01-16 09:46 | Emergency (ER) | payer MEDICAID, SELFPAY ==
[2020-01-16 09:53] VITALS: BP 146/109; PULSE 86; RESP 22; TEMP 37.2; O2SAT 100; BMI 19.5
--- NOTE | 2020-01-16 10:28 | US_ITS ---
EXAMINATION: US ABDOMEN LIMITED CLINICAL INFORMATION: Right upper quadrant/epigastric pain. COMPARISON: None TECHNIQUE: Real-time imaging of the right upper quadrant abdominal viscera. FINDINGS: PANCREAS: Normal. LIVER: Normal. The liver is normal in size. The liver contour is normal. Parenchymal echogenicity is normal. No focal hepatic lesion. There is no intrahepatic biliary duct dilatation seen. GALLBLADDER: Normal. The gallbladder is physiologically distended without evidence of stones, sludge, polyps, wall thickening or pericholecystic fluid. COMMON BILE DUCT: Normal in caliber measuring 0.14 cm in diameter. RIGHT KIDNEY: Normal. No hydronephrosis. No renal calculi or focal parenchymal lesions. The kidney measures 10.9 cm in maximum dimension. FREE FLUID: None. US/US abdomen limited IMPRESSION: Unremarkable limited ultrasound abdomen.
[2020-01-16 10:41] LABS: MANUAL DIFF FLAG NO
[2020-01-16] MEDS: LORazepam 2 MG/ML VIAL IVPUSH (10:41)
[2020-01-16 10:45] LABS: Basophils Absolute Auto 0.1 X10*3/uL (0.0-0.2); Basophils Percent Auto 0.3 % (0-2); Eosinophils Percent Auto 0.2 % (0-4); Hemoglobin 13.9 g/dl (12.0-16.0); Imm Gran Abs Auto 0.09 X10*3/uL (0.00-0.03); Imm Gran Pct Auto 0.5 % (0.0-0.4); Lymphocytes Absolute Auto 4.2 X10*3/uL (1.2-4.9); Lymphocytes Percent Auto 21.8 % (20-40); Mean Corpuscular HGB Conc 33.9 g/dl (31.0-35.0); Mean Corpuscular Hemoglobin 28.8 pg (27.0-33.0); Mean Corpuscular Volume 84.9 fL (80-98); Mean Platelet Volume 9.9 fL (9.4-12.3); Monocytes Absolute Auto 1.1 X10*3/uL (0.1-1.2); Monocytes Percent Auto 5.6 % (2-11); Neutrophils Absolute Auto 13.8 X10*3/uL (2.0-8.3); Neutrophils Percent Auto 71.6 % (45-73); Platelet Count 365 X10*3/uL (160-400); Red Blood Count 4.83 X10*6/uL (4.20-5.50); Red Cell Distribution Width 13.2 % (11.0-16.0); White Blood Count 19.3 X10*3/uL (4.8-10.8)
--- NOTE | 2020-01-16 10:57 | ED.ABDPAIN ---
HPI - Abdominal Pain General Chief Complaint: Abdominal Pain Stated Complaint: abd pain Time Seen by Provider: 01/16/20 09:53 Source: patient Mode of arrival: ambulatory Limitations: no limitations History of Present Illness HPI narrative: patient comes to the emergency room complaining abdominal pain. This is the 3rd visit in 2 days. Patient is status post left ovarian cyst removal at [facility] ( January 08 2020), came to emergency room on January 13 complaining of severe abdominal pain. CT scan was done in January 13, did not show any acute pathology. Patient returns to the emergency room on January 14 with the same complaints. This time a CT scan was done with contrast, showing similar findings, no acute pathology. Patient reporting vaginal bleeding since the surgery. yesterday, patient was discharged from the hospital with a diagnosis of cyclical vomiting. Patient admits smoking marijuana. Related Data Home Medications Medication Instructions Recorded Confirmed albuterol sulfate [ProAir HFA] 2 puff INHALATION Q4-6H PRN 01/14/20 01/14/20 dextroamphetamine-amphetamine 30 mg PO DAILY 01/14/20 01/14/20 [Adderall] Previous Rx's Medication Instructions Recorded hydroxyzine HCl 50 mg PO TID PRN #10 tab 01/16/20 hyoscyamine sulfate 0.125 mg PO QID PRN #10 tab 01/16/20 lorazepam [Ativan] 1 mg PO BEDTIME PRN #10 tab 01/16/20 ondansetron 4 mg PO Q8H PRN #20 tab 01/16/20 ondansetron HCl [Zofran] 4 mg PO Q6H PRN #14 tab 01/16/20 Allergies Allergy/AdvReac Type Severity Reaction Status Date / Time haloperidol [From Haldol] AdvReac Unknown Verified 01/14/20 00:14 Review of Systems Review of Systems Constitutional : No Weight loss, No Fever, No Chills, No Night Sweats, No Fatigue, No Malaise ENT/Mouth : No Hearing loss, No Ear Pain, No Nasal Congestion, No Sinus Pain, No Hoarseness, No sore throat, No Rhinorrhea, No Swallowing Difficulty Eyes: No Eye Pain, No Swelling, No Redness, No Foreign Body, No Discharge, No Vision Changes Cardiovascular : No Chest Pain, No SOB, No Dyspnea on Exertion, No Orthopnea, No Edema, No Palpitations Respiratory : No Cough, No Sputum, No Wheezing, No Smoke Exposure, No Dyspnea Gastrointestinal : complaining of nausea, vomiting, no diarrhea, complaining of diffuse abdominal pain Genitourinary : complaining of vaginal bleeding for a week, 2-3 pads per day, No Dysuria, No Urinary Frequency, No Hematuria, No Urinary Incontinence, No Urgency, No Flank Pain, No Urinary Flow Changes, No Hesitancy Musculoskeletal : No joint pain, No Myalgias, No Joint Swelling Skin : No Skin Lesions, No rash Neuro : No Weakness, No Numbness, No Paresthesias, No Loss of Consciousness, No Dizziness, No Headache Psych : No Anxiety/Panic, No Depression, No SI/HI/AH/VH, No Social Issues, Heme/Lymph: No Bruising, No Bleeding,No Lymphadenopathy Endocrine : No Polyuria, No Polydipsia, No Temperature Intolerance Yes all other systems are reviewed and are negative Physical Exam Vital Signs: Vital Signs: Vital Signs Temp Pulse Resp BP Pulse Ox 01/16/20 12:51 77 16 117/75 100 01/16/20 11:45 89 16 132/71 99 01/16/20 09:53 98.9 F 86 22 H 146/109 H 100 Body Mass Index 19.5 Appearance: Alert. Oriented X3. screaming hysterically, very anxious Eyes: Pupils equal, round and reactive to light. ENT: Pharynx normal. Neck: Normal inspection. Neck supple. No lymph nodes noted. No crepitus CVS: Normal heart rate and rhythm. Pulses normal. Normal S1 and S2 Respiratory: No respiratory distress. Breath sounds normal. No Wheezing. No rales Abdomen: patient has exaggerated response to superficial palpation of the abdomen in all quadrants Pelvic exam: scant brownish discharge, no active bleeding from cervical oz, no cervical tenderness Skin: Skin warm and dry. Normal skin color. Normal skin turgor. Extremities: No lower extremity edema. No lower extremity edema. No Lacerations. No Rash Neuro: Oriented X 3. No motor deficit. No sensory deficit. Moving all extermities. No slurred speech. Course Course Course Narrative: patient received 2 g of Ativan. Patient now feeling completely normal. In denies any abdominal pain, no nausea or vomiting. I discussed with the patient that if she continues having the symptoms, she may need to be evaluated by Gastroenterology and have further lab and imaging test done also, I discussed with the patient that she needs to stop smoking marijuana, which induces cyclical vomiting. patient's white blood cell count has been steady, likely secondary to being post op, no signs of infection. Sepsis is not suspected at this time. Per the patient's mother requests, and with the permission of the patient, I spoke to the patient's mother. I discussed with the patient's mother that 2 CT scans have not shown any acute pathology, the abdominal ultrasound did not show any acute pathology either. I discussed with the patient's mother, that all of the patient's symptoms including the abdominal pain and vomiting resolved with anxiety medication (ativan). Patient did not receive any medicine for pain or vomiting patient is being p.o. challenged, so far she is tolerating p.o. well with no pain or vomiting MDM - Abdominal Pain Lab Data Result diagrams: 01/16/20 10:35 01/16/20 10:35 Labs: Lab Results 01/16/20 01/16/20 01/16/20 Range/Units 10:35 10:35 11:28 WBC 19.3 H (4.8-10.8) X10*3/uL RBC 4.83 (4.20-5.50) X10*6/uL Hgb 13.9 (12.0-16.0) g/dl Hct 41.0 (37-47) % MCV 84.9 (80-98) fL MCH 28.8 (27.0-33.0) pg MCHC 33.9 (31.0-35.0) g/dl RDW 13.2 (11.0-16.0) % Plt Count 365 (160-400) X10*3/uL MPV 9.9 (9.4-12.3) fL Immature Gran % (Auto) 0.5 H (0.0-0.4) % Neut % (Auto) 71.6 (45-73) % Lymph % (Auto) 21.8 (20-40) % Mcduffie % (Auto) 5.6 (2-11) % Eos % (Auto) 0.2 (0-4) % Baso % (Auto) 0.3 (0-2) % Lymph # (Auto) 4.2 (1.2-4.9) X10*3/uL Mcduffie # (Auto) 1.1 (0.1-1.2) X10*3/uL Eos # (Auto) 0.0 (0.0-0.4) X10*3/uL Baso # (Auto) 0.1 (0.0-0.2) X10*3/uL Abs Immat Gran (auto) 0.09 H (0.00-0.03) X10*3/uL Absolute Neuts (auto) 13.8 H (2.0-8.3) X10*3/uL Absolute Nucleated RBC 0.000 (0.0-0.012) X10*3/uL Nucleated RBC % (auto) 0.0 (0.0-0.2) /100WBC Sodium 138 (135-145) mmol/L Potassium 4.0 (3.3-5.1) mmol/l Chloride 101 (96-108) mmol/L Carbon Dioxide 24 (22-29) mmol/L Anion Gap 17 (12-20) BUN 6 L (9-16) mg/dL Creatinine 0.68 (0.5-1.4) mg/dL Estim Creat Clear Calc 103.9 Estimated GFR > 60 Random Glucose 88 (60-115) mg/dL Calcium 9.9 (8.4-10.2) mg/dL Total Bilirubin 0.9 Cancelled (0.0-1.0) mg/dL Direct Bilirubin Cancelled AST 15 Cancelled (5-31) U/L ALT 13 Cancelled (0-31) U/L Alkaline Phosphatase 72 Cancelled (39-117) U/L Total Protein 7.8 Cancelled (6.5-8.0) g/dL Albumin 4.9 Cancelled (3.5-5.0) g/dL Lipase Cancelled Urine Color Urine Appearance Urine pH (5.0-8.0) Ur Specific York (1.005-1.025) Urine Protein (NEG-TRACE) MG/DL Urine Glucose (UA) (NEG) MG/DL Urine Ketones (NEG) MG/DL Urine Blood (NEG) Urine Nitrite (NEG) Ur Leukocyte Esterase (NEG) Urine Test (NEGATIVE) Urine Opiates Screen (Not Detect) Ur Barbiturates Screen (Not Detect) Ur Phencyclidine Scrn (Not Detect) Ur Amphetamines Screen (Not Detect) U Benzodiazepines Scrn (Not Detect) Urine Cocaine Screen (Not Detect) U Marijuana (THC) Screen (Not Detect) 01/16/20 01/16/20 01/16/20 Range/Units 11:28 11:28 12:15 WBC (4.8-10.8) X10*3/uL RBC (4.20-5.50) X10*6/uL Hgb (12.0-16.0) g/dl Hct (37-47) % MCV (80-98) fL MCH (27.0-33.0) pg MCHC (31.0-35.0) g/dl RDW (11.0-16.0) % Plt Count (160-400) X10*3/uL MPV (9.4-12.3) fL Immature Gran % (Auto) (0.0-0.4) % Neut % (Auto) (45-73) % Lymph % (Auto) (20-40) % Mcduffie % (Auto) (2-11) % Eos % (Auto) (0-4) % Baso % (Auto) (0-2) % Lymph # (Auto) (1.2-4.9) X10*3/uL Mcduffie # (Auto) (0.1-1.2) X10*3/uL Eos # (Auto) (0.0-0.4) X10*3/uL Baso # (Auto) (0.0-0.2) X10*3/uL Abs Immat Gran (auto) (0.00-0.03) X10*3/uL Absolute Neuts (auto) (2.0-8.3) X10*3/uL Absolute Nucleated RBC (0.0-0.012) X10*3/uL Nucleated RBC % (auto) (0.0-0.2) /100WBC Sodium (135-145) mmol/L Potassium (3.3-5.1) mmol/l Chloride (96-108) mmol/L Carbon Dioxide (22-29) mmol/L Anion Gap (12-20) BUN (9-16) mg/dL Creatinine (0.5-1.4) mg/dL Estim Creat Clear Calc Estimated GFR Random Glucose (60-115) mg/dL Calcium (8.4-10.2) mg/dL Total Bilirubin 0.9 (0.0-1.0) mg/dL Direct Bilirubin 0.3 AST 13 (5-31) U/L ALT 12 (0-31) U/L Alkaline Phosphatase 56 D (39-117) U/L Total Protein 6.3 L (6.5-8.0) g/dL Albumin 4.1 (3.5-5.0) g/dL Lipase Urine Color YELLOW Urine Appearance CLOUDY Urine pH >= 9.0 H (5.0-8.0) Ur Specific [place] 1.020 (1.005-1.025) Urine Protein NEG (NEG-TRACE) MG/DL Urine Glucose (UA) NEG (NEG) MG/DL Urine Ketones 15 (NEG) MG/DL Urine Blood NEG (NEG) Urine Nitrite NEG (NEG) Ur Leukocyte Esterase NEG (NEG) Urine Test NEGATIVE (NEGATIVE) Urine Opiates Screen Not Detected (Not Detect) Ur Barbiturates Screen Not Detected (Not Detect) Ur Phencyclidine Scrn Not Detected (Not Detect) Ur Amphetamines Screen Not Detected (Not Detect) U Benzodiazepines Scrn Not Detected (Not Detect) Urine Cocaine Screen Not Detected (Not Detect) U Marijuana (THC) Screen POSITIVE H (Not Detect) 01/16/20 Range/Units 12:15 WBC (4.8-10.8) X10*3/uL RBC (4.20-5.50) X10*6/uL Hgb (12.0-16.0) g/dl Hct (37-47) % MCV (80-98) fL MCH (27.0-33.0) pg MCHC (31.0-35.0) g/dl RDW (11.0-16.0) % Plt Count (160-400) X10*3/uL MPV (9.4-12.3) fL Immature Gran % (Auto) (0.0-0.4) % Neut % (Auto) (45-73) % Lymph % (Auto) (20-40) % Mcduffie % (Auto) (2-11) % Eos % (Auto) (0-4) % Baso % (Auto) (0-2) % Lymph # (Auto) (1.2-4.9) X10*3/uL Mcduffie # (Auto) (0.1-1.2) X10*3/uL Eos # (Auto) (0.0-0.4) X10*3/uL Baso # (Auto) (0.0-0.2) X10*3/uL Abs Immat Gran (auto) (0.00-0.03) X10*3/uL Absolute Neuts (auto) (2.0-8.3) X10*3/uL Absolute Nucleated RBC (0.0-0.012) X10*3/uL Nucleated RBC % (auto) (0.0-0.2) /100WBC Sodium (135-145) mmol/L Potassium (3.3-5.1) mmol/l Chloride (96-108) mmol/L Carbon Dioxide (22-29) mmol/L Anion Gap (12-20) BUN (9-16) mg/dL Creatinine (0.5-1.4) mg/dL Estim Creat Clear Calc Estimated GFR Random Glucose (60-115) mg/dL Calcium (8.4-10.2) mg/dL Total Bilirubin (0.0-1.0) mg/dL Direct Bilirubin AST (5-31) U/L ALT (0-31) U/L Alkaline Phosphatase (39-117) U/L Total Protein (6.5-8.0) g/dL Albumin (3.5-5.0) g/dL Lipase 15 Urine Color Urine Appearance Urine pH (5.0-8.0) Ur Specific York (1.005-1.025) Urine Protein (NEG-TRACE) MG/DL Urine Glucose (UA) (NEG) MG/DL Urine Ketones (NEG) MG/DL Urine Blood (NEG) Urine Nitrite (NEG) Ur Leukocyte Esterase (NEG) Urine Test (NEGATIVE) Urine Opiates Screen (Not Detect) Ur Barbiturates Screen (Not Detect) Ur Phencyclidine Scrn (Not Detect) Ur Amphetamines Screen (Not Detect) U Benzodiazepines Scrn (Not Detect) Urine Cocaine Screen (Not Detect) U Marijuana (THC) Screen (Not Detect) Imaging Data US - abdomen: Radiologist's impression: PANCREAS: Normal. LIVER: Normal. The liver is normal in size. The liver contour is normal. Parenchymal echogenicity is normal. No focal hepatic lesion. There is no intrahepatic biliary duct dilatation seen. GALLBLADDER: Normal. The gallbladder is physiologically distended without evidence of stones, sludge, polyps, wall thickening or pericholecystic fluid. COMMON BILE DUCT: Normal in caliber measuring 0.14 cm in diameter. RIGHT KIDNEY: Normal. No hydronephrosis. No renal calculi or focal parenchymal lesions. The kidney measures 10.9 cm in maximum dimension. FREE FLUID: None. Discharge Plan Discharge Clinical Impression: Cyclical vomiting Abdominal pain Qualifiers: Abdominal location: unspecified location Qualified Code(s): R10.9 - Unspecified abdominal pain Patient Disposition: Home, Self-Care Instructions: Abdominal Pain (ED), Cyclic Vomiting Syndrome (ED) Additional Instructions: please stop using marijuana. marijuana induces cyclical vomiting. please call gastroenterology to schedule an appointment Please follow-up with your primary care physician tomorrow. If you have any worsening or new symptoms, please return to the emergency room or call 911 Prescriptions: New hyoscyamine sulfate 0.125 mg tablet,disintegrating 0.125 mg PO QID PRN (Reason: dyspepsia) Qty: 10 RF: 0 ondansetron HCl [Zofran] 4 mg tablet 4 mg PO Q6H PRN (Reason: nausea and vomiting) Qty: 14 RF: 0 hydroxyzine HCl 50 mg tablet 50 mg PO TID PRN (Reason: nausea and vomiting) Qty: 10 RF: 0 No Action ondansetron 4 mg tablet,disintegrating 4 mg PO Q8H PRN (Reason: nausea and vomiting) Qty: 20 RF: 0 lorazepam [Ativan] 1 mg tablet 1 mg PO BEDTIME PRN (Reason: sleep) Qty: 10 RF: 0 dextroamphetamine-amphetamine [Adderall] 30 mg Tablet 30 mg PO DAILY RF: 0 albuterol sulfate [ProAir HFA] 90 mcg/actuation Hfa Aerosol Inhaler 2 puff INHALATION Q4-6H PRN (Reason: Shortness Of Breath Or Wheezing) RF: 0 Referrals: Wood Goss [Physician] - 1 day [facility] Past Medical History Medical History ADHD Anxiety Asthma Ovarian cyst Surgical History S/P removal of ovarian cyst Social History Social History Household Members: Family Housing: Apartment Alcohol intake: never Smoking Status: Never smoker Use of substances other than those prescribed or required for medical reasons: No Substance Use Type: Marijuana Advance Directives: Yes Advance Directives Information Provided: No Advance Directives on File: No service: No Current occupational status: employed
[2020-01-16 11:11] LABS: Alanine Aminotransferase 13 U/L (0-31); Albumin Level 4.9 g/dL (3.5-5.0); Alkaline Phosphatase 72 U/L (39-117); Anion Gap 17 (12-20); Aspartate Amino Transferase 15 U/L (5-31); Bilirubin Total 0.9 mg/dL (0.0-1.0); Blood Urea Nitrogen 6 mg/dL (9-16); Calcium 9.9 mg/dL (8.4-10.2); Carbon Dioxide 24 mmol/L (22-29); Chloride 101 mmol/L (96-108); Creatinine Clr Calc Pharmacy 103.9; Estimated Glomerular Filt Rate > 60; Glucose Random 88 mg/dL (60-115); Sodium 138 mmol/L (135-145); Total Protein 7.8 g/dL (6.5-8.0)
--- NOTE | 2020-01-16 11:33 | PC.NURSE ---
PT TRIAGED C/O UMBILICAL PAIN 12/28, SEVERAL EPISODES OF VOMITING THIS AM AND THROUGHOUT TRIAGE. SEEN HERE EARLIER THIS AM, REPORTS PAIN RETURNED AFTER SHE ATE SOME BREAKFAST. PT VERY DISTRESSED DURING TRIAGE, REASSURED. RECENT L SIDED OVARIAN CYSTECTOMY. STERISTRIPS STILL IN PLACE, SURROUNDING AREAS AROUND INCISIONS NONREMARKABLE. DENIES ANY RECENT FEVERS. REPORTS VAGINAL BLEEDING, 3-4 PADS USED DAILY, AND DIARRHEA. MD TO BEDSIDE, PELVIC EXAM COMPLETED, SPECIMENS COLLECTED. 20G IN L AC, MEDICATED PER EMR. CURRENTLY CALM, REPORTS PAIN NOW MANAGEABLE. VOMITING HAS CEASED. AWAITING US AND LAB RESULTS.
[2020-01-16 11:45] VITALS: BP 132/71; PULSE 89; RESP 16; O2SAT 99
[2020-01-16 12:05] LABS: Glucose Urine UA NEG (NEG); Leukocyte Esterase Urine NEG (NEG); Nitrite Urine NEG (NEG); PH >= 9.0 (5.0-8.0); Urine Blood NEG (NEG); Urine Ketones 15 MG/DL (NEG); Urine Protein NEG (NEG-TRACE)
[2020-01-16 12:06] LABS: Appearance Urine CLOUDY; Color Urine YELLOW
[2020-01-16 12:16] LABS: UPreg QC Valid YES; Urine Pregnancy NEGATIVE (NEGATIVE)
[2020-01-16 12:28] LABS: Amphetamine Screen Urine Not Detected (Not Detect); Barbiturates, Urine Not Detected (Not Detect); Benzodiazepines Screen Urine Not Detected (Not Detect); Cannabinoid Screen Urine POSITIVE (Not Detect); Cocaine Screen Urine Not Detected (Not Detect); Opiate Screen Urine Not Detected (Not Detect); Phencyclidine Screen Urine Not Detected (Not Detect)
[2020-01-16 12:51] VITALS: BP 117/75; PULSE 77; RESP 16; O2SAT 100
[2020-01-16 12:56] LABS: Lipase 15 U/L (8-78)
[2020-01-16 12:57] LABS: Alanine Aminotransferase 12 U/L (0-31); Albumin Level 4.1 g/dL (3.5-5.0); Alkaline Phosphatase 56 U/L (39-117); Aspartate Amino Transferase 13 U/L (5-31); Bilirubin Direct 0.3 mg/dL (0.0-0.5); Bilirubin Total 0.9 mg/dL (0.0-1.0); Total Protein 6.3 g/dL (6.5-8.0)
[2020-01-16 13:44] VITALS: BP 117/72; PULSE 86; RESP 16; O2SAT 100
[2020-01-16 13:49] LABS: CT PCR NOT DETECTED (Not Detect.); NG PCR NOT DETECTED (Not Detect.)
[2020-01-17 11:18] LABS: BV Int Neg Control Negative (Negative); BV Int Pos Control Positive (Positive)
[2020-01-22 18:16] LABS: Chlamydia Pneumoniae IgA <1:16 titer (<1:16); Chlamydia Pneumoniae IgG <1:64 titer (<1:64); Chlamydia Pneumoniae IgM <1:10 titer (<1:10); Chlamydia Psittaci IgA <1:16 titer (<1:16); Chlamydia Psittaci IgG <1:64 titer (<1:64); Chlamydia Psittaci IgM <1:10 titer (<1:10); Chlamydia Trachomatis IgA <1:16 titer (<1:16); Chlamydia Trachomatis IgG <1:64 titer (<1:64); Chlamydia Trachomatis IgM <1:10 titer (<1:10)
== END 2020-01-16 14:17 | disposition home or self-care (01) ==
PROVIDERS: Emergency Provider Emergency Medicine; PCP Pediatrics
DX: R10.9 Unspecified abdominal pain (principal); R11.15 Cyclical vomiting syndrome unrelated to migraine; Z79.899 Other long term (current) drug therapy; Z20.828 Contact with and (suspected) exposure to other viral communicable diseases
CPT/HCPCS: 36415; 76705; 80053; 80076; 80307; 81003; 81025; 83690; 85025; 86631; 86632; 87480; 87491; 87510; 87591; 87660; 96374; 99284; J2060

== ENCOUNTER 2020-03-21 05:01 | Emergency (ER) | payer MEDICAID, SELFPAY ==
[2020-03-21 05:13] VITALS: BP 128/89; PULSE 102; RESP 18; TEMP 37; O2SAT 95; BMI 19.5
--- NOTE | 2020-03-21 05:17 | ED.ABDPAIN ---
HPI - Abdominal Pain General Chief Complaint: ETOH/Substance Use Stated Complaint: LOWER ABD PAIN,ETOH INTOXICATION Time Seen by Provider: 03/21/20 05:13 Source: patient Mode of arrival: EMS Limitations: no limitations History of Present Illness HPI narrative: Patient with marijuana induced abdominal pain and vomiting syndrome head marijuana earlier today and few drinks of alcohol complaining of similar pain mostly localized upper abdomen with nausea no vomiting crying emotionally in the ER MD elicited complaint: abdominal pain Pertinent past history: gastritis Onset (ago): hour(s) Pain Consistency: constant Location: epigastric Severity: mild Quality: cramping Migration to: no migration Exacerbating factors: eating Relieving factors: nothing Associated symptoms: nausea Related Data Home Medications Medication Instructions Recorded Confirmed albuterol sulfate [ProAir HFA] 2 puff INHALATION Q4-6H PRN 01/14/20 01/14/20 dextroamphetamine-amphetamine 30 mg PO DAILY 01/14/20 01/14/20 [Adderall] Previous Rx's Medication Instructions Recorded hydroxyzine HCl 50 mg PO TID PRN #10 tab 01/16/20 hyoscyamine sulfate 0.125 mg PO QID PRN #10 tab 01/16/20 lorazepam [Ativan] 1 mg PO BEDTIME PRN #10 tab 01/16/20 ondansetron 4 mg PO Q8H PRN #20 tab 01/16/20 ondansetron HCl [Zofran] 4 mg PO Q6H PRN #14 tab 01/16/20 Allergies Allergy/AdvReac Type Severity Reaction Status Date / Time haloperidol [From Haldol] AdvReac Unknown Verified 01/14/20 00:14 Review of Systems Review of Systems Constitutional : No Weight loss, No Fever, No Chills ENT/Mouth : No sore throat, No Rhinorrhea Eyes: No Eye Pain, No Swelling Cardiovascular : No Chest Pain, no palpitations Respiratory : No Cough, No Sputum, no shortness of breath Gastrointestinal : ++ Nausea, No Vomiting, No Diarrhea, ++ abdominal Pain, no black stools Genitourinary : No Dysuria, No Urinary Frequency Musculoskeletal : No joint pain, No Myalgias, No Joint Swelling Skin : No Skin Lesions, No rash Neuro : No Weakness, No Numbness, No Dizziness, No Headache Psych : No Anxiety/Panic, No Depression Heme/Lymph: No Bruising, No Lymphadenopathy Endocrine : No Polyuria, No Polydipsia All other systems reviewed and are negative Physical Exam Vital Signs: Vital Signs: Last Vital Signs Temp 98.6 F 03/21/20 05:13 Pulse 102 H 03/21/20 05:13 Resp 18 03/21/20 05:13 BP 128/89 03/21/20 05:13 Pulse Ox 95 03/21/20 05:13 Body Mass Index 19.5 Appearance: Alert. Oriented X3. + distress. Emotionally crime Eyes: Pupils equal, round and reactive to light. ENT: Pharynx normal. Neck: Normal inspection. Neck supple. CVS: Normal heart rate and rhythm. Pulses normal. Respiratory: No respiratory distress. Breath sounds normal. Abdomen: Soft and tender epig. Bowel sounds are present, no mass palpable, no CVA tenderness Skin: Skin warm and dry. Normal skin color. Normal skin turgor. Extremities: No lower extremity edema. Neuro: Oriented X 3. No motor deficit. No sensory deficit. MDM - Abdominal Pain MDM Narrative Medical decision making narrative: Patient with alcohol abuse anxiety no nausea no vomiting with chronic abdominal pain refusing any labs at this time wants to go home and sleep will give her Maalox and Ativan and discharged home Discharge Plan Discharge Prescriptions: No Action ondansetron 4 mg tablet,disintegrating 4 mg PO Q8H PRN (Reason: nausea and vomiting) Qty: 20 RF: 0 lorazepam [Ativan] 1 mg tablet 1 mg PO BEDTIME PRN (Reason: sleep) Qty: 10 RF: 0 dextroamphetamine-amphetamine [Adderall] 30 mg Tablet 30 mg PO DAILY RF: 0 albuterol sulfate [ProAir HFA] 90 mcg/actuation Hfa Aerosol Inhaler 2 puff INHALATION Q4-6H PRN (Reason: Shortness Of Breath Or Wheezing) RF: 0 hyoscyamine sulfate 0.125 mg tablet,disintegrating 0.125 mg PO QID PRN (Reason: dyspepsia) Qty: 10 RF: 0 ondansetron HCl [Zofran] 4 mg tablet 4 mg PO Q6H PRN (Reason: nausea and vomiting) Qty: 14 RF: 0 hydroxyzine HCl 50 mg tablet 50 mg PO TID PRN (Reason: nausea and vomiting) Qty: 10 RF: 0 PMFSH Past Medical History Medical History ADHD Anxiety Asthma Ovarian cyst Surgical History S/P removal of ovarian cyst Social History Social History Household Members: Family Housing: Apartment Alcohol intake: never Smoking Status: Never smoker Substance Use Type: Marijuana service: No Current occupational status: employed
[2020-03-21] MEDS: Magnesium Hydrox/Alum Hydrox 30 ML ORAL.SUSP PO (05:32)
[2020-03-21] MEDS: Omeprazole 40 MG CAPSULE.DR PO (05:32)
[2020-03-21] MEDS: LORazepam 1 MG TABLET PO (05:32)
== END 2020-03-21 05:52 | disposition home or self-care (01) ==
PROVIDERS: Emergency Provider Internal Medicine
DX: F10.180 Alcohol abuse with alcohol-induced anxiety disorder (principal); F10.129 Alcohol abuse with intoxication, unspecified; Y90.9 Presence of alcohol in blood, level not specified; R10.13 Epigastric pain
CPT/HCPCS: 96374; 96375; 99283

== ENCOUNTER 2020-04-23 12:23 | Emergency (ER) | payer MEDICAID, SELFPAY | END 2020-04-23 13:49 | disposition left against medical advice (07) | PROVIDERS: Emergency Provider Emergency Medicine; PCP Health Educator | DX: R10.9 Unspecified abdominal pain (principal) ==

== ENCOUNTER 2020-06-14 06:47 | Emergency (ER) | payer MEDICAID, SELFPAY ==
--- NOTE | ~2020-06-14 | CT_ITS ---
EXAMINATION: CT ABDOMEN AND PELVIS WITH CONTRAST CLINICAL INFORMATION: 20-year-old female with abdominal pain and leukocytosis. COMPARISON: CT abdomen pelvis 01/16/2020 TECHNIQUE: Multidetector volumetric images were obtained from the superior aspect of the liver through the pubic symphysis following administration 85 mL of Omnipaque 350 intravenous contrast. Sagittal and coronal reformatted images were obtained on the technologist's workstation. The examination is mildly limited secondary to motion artifact. This CT examination was performed using dose optimization techniques as appropriate, variously including the following: *Automated exposure control *Adjustment of mA and/or kV according to patient size (this includes techniques or standardized protocols for targeted exams where dose is matched to indication/reason for exam; i.e. extremities or head) *Use of iterative reconstruction technique DLP: 375 mGy-cm FINDINGS: Visualized lung bases are well aerated. The liver demonstrates normal size, contour and attenuation. The gallbladder is normal in appearance. The pancreas, spleen and adrenal glands are unremarkable. Symmetrically enhancing kidneys. No hydronephrosis bilaterally. Normal caliber loops of small and large bowel. Normal appendix. The bladder is normal in appearance. Unremarkable CT appearance of the uterus. Small amount of free pelvic fluid is likely physiologic in a female of this age. No inguinal lymphadenopathy. No acute osseous abnormality. CT/CT abdomen pelvis w con IMPRESSION: -No CT evidence for acute abnormality within the abdomen or pelvis. -Examination mildly limited secondary to motion artifact.
[2020-06-14 07:07] VITALS: BP 152/105; PULSE 66; RESP 18; TEMP 36.4; O2SAT 99; BMI 19.5
--- NOTE | 2020-06-14 07:36 | ED_ITS ---
HPI - Nausea/Vomiting/Diarrhea General Chief complaint: Abdominal Pain Stated complaint: VOMITING Time Seen by Provider: 06/14/20 07:30 History of Present Illness HPI Narrative: This is a 20 years old of female presented to the emergency department with complain of nausea , vomiting, abdominal cramps x2 days. She states that she is unable to keep anything down. She has similar symptom in the past due to cannabis abuse. She states she still using cannabis MD elicited complaint: nausea and vomiting Onset (ago): day(s) (Two days) Related Data Home Medications Medication Instructions Recorded Confirmed albuterol sulfate [ProAir HFA] 2 puff INHALATION Q4-6H PRN 01/14/20 01/14/20 dextroamphetamine-amphetamine 30 mg PO DAILY 01/14/20 01/14/20 [Adderall] Previous Rx's Medication Instructions Recorded hydroxyzine HCl 50 mg PO TID PRN #10 tab 01/16/20 hyoscyamine sulfate 0.125 mg PO QID PRN #10 tab 01/16/20 lorazepam [Ativan] 1 mg PO BEDTIME PRN #10 tab 01/16/20 ondansetron 4 mg PO Q8H PRN #20 tab 01/16/20 ondansetron HCl [Zofran] 4 mg PO Q6H PRN #14 tab 01/16/20 ondansetron HCl [Zofran] 4 mg PO Q8H PRN #14 tab 06/14/20 Allergies Allergy/AdvReac Type Severity Reaction Status Date / Time haloperidol [From Haldol] AdvReac Unknown Verified 06/14/20 07:07 Review of Systems Review of Systems: Yes all other systems are reviewed and are negative PMFSH Past Medical History Medical History ADHD Anxiety Asthma Ovarian cyst Surgical History S/P removal of ovarian cyst Social History Social History Household Members: Family Housing: Apartment Alcohol intake: never Smoking Status: Never smoker Use of substances other than those prescribed or required for medical reasons: Yes Substance Use Type: Marijuana Substance Use Frequency: Daily Advance Directives: No Advance Directives Information Provided: No service: No Current occupational status: employed Physical Exam Vital Signs: Vital Signs: Last Vital Signs Temp 97.6 F 06/14/20 07:07 Pulse 59 06/14/20 10:04 Resp 18 06/14/20 10:04 BP 118/84 06/14/20 10:04 Pulse Ox 99 06/14/20 10:04 Body Mass Index 19.5 Const: Other: Patient appear very anxious HENMT: Head: Yes normal to inspection Face and sinus: Yes normal facial exam Eyes: General: appearance normal, both eyes and all related structures Neck: Neck: Yes normal visual inspection and Yes full ROM Chest: Chest palpation & inspection: normal inspection of the chest and normal palpation of entire chest wall Resp: Effort & Inspection: normal respiratory effort Cardio: Rate: regular rate GI: Other: Abdomen is soft nontender no guarding no rebound Inspection: Yes normal to inspection Skin: Other: Skin is pink there is no diaphoresis, no rash Neuro: Other: Awake alert oriented x3 cranial nerves 2-12 intact gait is stable no motor deficit Extrem: Other: No edema Psych: Other: Very anxious, restless Course Reevaluation(s) Reevaluation #1: Patient is feeling much better she has no abdominal pain she has no vomiting he has tolerated p.o. well a CT scan of the abdomen and pelvis negative okay to discharge Time: 11:00 [facility] - Nausea/Vomiting/Diarrhea Lab Data Result diagrams: 06/14/20 07:42 06/14/20 07:42 Labs: Lab Results 06/14/20 06/14/20 Range/Units 07:42 07:42 WBC 19.7 H (4.8-10.8) X10*3/uL RBC 5.09 (4.20-5.50) X10*6/uL Hgb 14.3 (12.0-16.0) g/dl Hct 42.5 (37-47) % MCV 83.5 (80-98) fL MCH 28.1 (27.0-33.0) pg MCHC 33.6 (31.0-35.0) g/dl RDW 13.0 (11.0-16.0) % Plt Count 353 (160-400) X10*3/uL MPV 10.6 (9.4-12.3) fL Immature Gran % (Auto) 0.5 H (0.0-0.4) % Neut % (Auto) 89.5 H (45-73) % Lymph % (Auto) 6.5 L (20-40) % [place] % (Auto) 3.2 (2-11) % Eos % (Auto) 0.1 (0-4) % Baso % (Auto) 0.2 (0-2) % Lymph # (Auto) 1.3 (1.2-4.9) X10*3/uL [place] # (Auto) 0.6 (0.1-1.2) X10*3/uL Eos # (Auto) 0.0 (0.0-0.4) X10*3/uL Baso # (Auto) 0.0 (0.0-0.2) X10*3/uL Abs Immat Gran (auto) 0.10 H (0.00-0.03) X10*3/uL Absolute Neuts (auto) 17.6 H (2.0-8.3) X10*3/uL Absolute Nucleated RBC 0.000 (0.0-0.012) X10*3/uL Nucleated RBC % (auto) 0.0 (0.0-0.2) /100WBC Sodium 139 (135-145) mmol/L Potassium 3.9 (3.3-5.1) mmol/L Chloride 98 (96-108) mmol/L Carbon Dioxide 24 (22-29) mmol/L Anion Gap 21 H (12-20) BUN 12 D (9-16) mg/dL Creatinine 0.80 (0.5-1.4) mg/dL Estim Creat Clear Calc 87.6 Estimated GFR > 60 Random Glucose 167 H D (60-115) mg/dL Calcium 10.9 H D (8.4-10.2) mg/dL Total Bilirubin 1.6 H (0.0-1.0) mg/dL AST 20 D (5-31) U/L ALT 21 (0-31) U/L Alkaline Phosphatase 85 D (39-117) U/L Total Protein 8.4 H D (6.5-8.0) g/dL Albumin 5.4 H D (3.5-5.0) g/dL Lipase 18 (8-78) U/L Beta HCG, Quant < 2 mIU/mL Imaging Data CT scan - abdomen: Radiologist's impression: opathy. No acute osseous abnormality. CT/CT abdomen pelvis w con IMPRESSION: -No CT evidence for acute abnormality within the abdomen or pelvis. -Examination mildly limited secondary to motion artifact. Discharge Plan Discharge Clinical Impression: Vomiting, Leukocytosis Patient Disposition: Home, Self-Care Instructions: Acute Nausea and Vomiting (ED) Additional Instructions: Follow-up with your primary care physician on Tuesday to diet times 24 hour return if you worse Prescriptions: New ondansetron HCl [Zofran] 4 mg tablet 4 mg PO Q8H PRN (Reason: nausea and vomiting) Qty: 14 RF: 0 No Action ondansetron 4 mg tablet,disintegrating 4 mg PO Q8H PRN (Reason: nausea and vomiting) Qty: 20 RF: 0 lorazepam [Ativan] 1 mg tablet 1 mg PO BEDTIME PRN (Reason: sleep) Qty: 10 RF: 0 dextroamphetamine-amphetamine [Adderall] 30 mg Tablet 30 mg PO DAILY RF: 0 albuterol sulfate [ProAir HFA] 90 mcg/actuation Hfa Aerosol Inhaler 2 puff INHALATION Q4-6H PRN (Reason: Shortness Of Breath Or Wheezing) RF: 0 hyoscyamine sulfate 0.125 mg tablet,disintegrating 0.125 mg PO QID PRN (Reason: dyspepsia) Qty: 10 RF: 0 ondansetron HCl [Zofran] 4 mg tablet 4 mg PO Q6H PRN (Reason: nausea and vomiting) Qty: 14 RF: 0 hydroxyzine HCl 50 mg tablet 50 mg PO TID PRN (Reason: nausea and vomiting) Qty: 10 RF: 0
[2020-06-14 07:45] LABS: MANUAL DIFF FLAG NO
[2020-06-14] MEDS: LORazepam 2 MG/ML VIAL 1 MG IVPUSH (07:49)
[2020-06-14 07:51] LABS: Basophils Percent Auto 0.2 % (0-2); Eosinophils Percent Auto 0.1 % (0-4); Hematocrit 42.5 % (37-47); Hemoglobin 14.3 g/dl (12.0-16.0); Imm Gran Pct Auto 0.5 % (0.0-0.4); Lymphocytes Absolute Auto 1.3 X10*3/uL (1.2-4.9); Lymphocytes Percent Auto 6.5 % (20-40); Mean Corpuscular HGB Conc 33.6 g/dl (31.0-35.0); Mean Corpuscular Hemoglobin 28.1 pg (27.0-33.0); Mean Corpuscular Volume 83.5 fL (80-98); Mean Platelet Volume 10.6 fL (9.4-12.3); Monocytes Absolute Auto 0.6 X10*3/uL (0.1-1.2); Monocytes Percent Auto 3.2 % (2-11); Neutrophils Absolute Auto 17.6 X10*3/uL (2.0-8.3); Neutrophils Percent Auto 89.5 % (45-73); Platelet Count 353 X10*3/uL (160-400); Red Blood Count 5.09 X10*6/uL (4.20-5.50); White Blood Count 19.7 X10*3/uL (4.8-10.8)
[2020-06-14] MEDS: diphenhydrAMINE HCL 50 MG/ML VIAL 25 MG IVPUSH (07:55)
[2020-06-14] MEDS: 0.9 % Sodium Chloride 1,000 ML 999 ML IVCONT ×2 (07:55→11:17)
[2020-06-14] MEDS: Metoclopramide HCl 10 MG/2 ML VIAL IVPUSH (07:55)
[2020-06-14 08:11] LABS: Alanine Aminotransferase 21 U/L (0-31); Albumin Level 5.4 g/dL (3.5-5.0); Alkaline Phosphatase 85 U/L (39-117); Anion Gap 21 (12-20); Aspartate Amino Transferase 20 U/L (5-31); Bilirubin Total 1.6 mg/dL (0.0-1.0); Blood Urea Nitrogen 12 mg/dL (9-16); Carbon Dioxide 24 mmol/L (22-29); Chloride 98 mmol/L (96-108); Creatinine Clr Calc Pharmacy 87.6; Estimated Glomerular Filt Rate > 60; Glucose Random 167 mg/dL (60-115); Lipase 18 U/L (8-78); Potassium 3.9 mmol/L (3.3-5.1); Sodium 139 mmol/L (135-145); Total Protein 8.4 g/dL (6.5-8.0)
[2020-06-14 08:17] LABS: HCG Quantitative < 2 mIU/mL
[2020-06-14 08:24] LABS: Calcium 10.9 mg/dL (8.4-10.2)
--- NOTE | 2020-06-14 08:39 | PC.NURSE ---
PT IS CURRENTLY SLEEPING, RESPIRATIONS EVEN AND UNLABORED.
[2020-06-14 10:04] VITALS: BP 118/84; PULSE 59; RESP 18; O2SAT 99
--- NOTE | 2020-06-14 10:05 | PC.NURSE ---
iv positional, first bag of fluids dripping in slowly, put on pressure bag, vs stable, pt arousable to voice command then falls back to sleep
[2020-06-14] MEDS: iohexoL 350 MG/ML 75 ML INFUS..BTL IV (10:34)
--- NOTE | 2020-06-14 10:53 | PC.NURSE ---
REC'D REPORT FROM BRETT WOODRUFF. PT ASLEEP AT THIS TIME. IV POSITIONAL, DELAYED ADMIN OF FLUIDS.
== END 2020-06-14 11:52 | disposition home or self-care (01) ==
PROVIDERS: Emergency Provider Emergency Medicine
DX: R11.2 Nausea with vomiting, unspecified (principal); F12.90 Cannabis use, unspecified, uncomplicated; D72.829 Elevated white blood cell count, unspecified; Z79.899 Other long term (current) drug therapy
CPT/HCPCS: 36415; 74177; 80053; 83690; 84702; 85025; 96361; 96365; 96375; 99284; J1200; J2060; J2765; Q9967

== ENCOUNTER 2020-06-15 01:27 | Emergency (ER) | payer MEDICAID, SELFPAY ==
[2020-06-15 01:31] VITALS: BP 132/100; PULSE 65; RESP 20; TEMP 36.6; O2SAT 100; BMI 20.1
[2020-06-15] MEDS: diphenhydrAMINE HCL 50 MG/ML VIAL 25 MG IM (02:15)
[2020-06-15] MEDS: Metoclopramide HCl 10 MG/2 ML VIAL IM (02:15)
--- NOTE | 2020-06-15 02:51 | ED.ABDPAIN ---
HPI - Abdominal Pain General Chief Complaint: Abdominal Pain Stated Complaint: abdominal pain Time Seen by Provider: 06/15/20 02:03 Source: patient Mode of arrival: EMS History of Present Illness HPI narrative: This is a 20-year-old female who re-presented to the emergency department after being evaluated this morning for acute nausea and vomiting. She reports that she is having significant abdominal discomfort and reports nausea and vomiting, but denies fevers, chills, urinary pain/burning/frequency. Related Data Home Medications Medication Instructions Recorded Confirmed albuterol sulfate [ProAir HFA] 2 puff INHALATION Q4-6H PRN 01/14/20 01/14/20 dextroamphetamine-amphetamine 30 mg PO DAILY 01/14/20 01/14/20 [Adderall] Previous Rx's Medication Instructions Recorded hydroxyzine HCl 50 mg PO TID PRN #10 tab 01/16/20 hyoscyamine sulfate 0.125 mg PO QID PRN #10 tab 01/16/20 lorazepam [Ativan] 1 mg PO BEDTIME PRN #10 tab 01/16/20 ondansetron 4 mg PO Q8H PRN #20 tab 01/16/20 ondansetron HCl [Zofran] 4 mg PO Q6H PRN #14 tab 01/16/20 metoclopramide HCl [Reglan] 10 mg PO Q6H PRN #15 tab 06/14/20 ondansetron HCl [Zofran] 4 mg PO Q8H PRN #14 tab 06/14/20 Allergies Allergy/AdvReac Type Severity Reaction Status Date / Time haloperidol [From Haldol] AdvReac Unknown Verified 06/14/20 07:07 Review of Systems Review of Systems Pertinent positives and negatives as stated in HPI 10 point review systems is otherwise negative. Physical Exam Vital Signs: Vital Signs: Last Vital Signs Temp 97.8 F 06/15/20 01:31 Pulse 74 06/15/20 06:00 Resp 16 06/15/20 06:00 BP 100/65 06/15/20 03:48 Pulse Ox 100 06/15/20 06:00 Body Mass Index 20.1 VITAL SIGNS: Reviewed. GENERAL: Well developed, well nourished, anxiety. HEAD: Normocephalic/atraumatic NOSE: Nares patent bilateral OROPHARYNX: no oral lesions noted, posterior pharynx clear NECK: Supple, no adenopathy LUNGS: Normal breath sounds. No adventitious sounds or accessory muscle use. SpO2<100> CARDIOVASCULAR: Regular rate and rhythm without noted murmurs ABDOMEN: Soft, mild tenderness in epigastric without rebound, non-distended with bowel sounds. NEUROLOGIC: Alert and oriented x 4. Course Course Course Narrative: This is a 20-year-old female with history and clinical presentation most consistent with cyclical vomiting and full evaluation earlier in the day was negative for any other acute findings. Patient was provided with IM Reglan/Benadryl with good resolution of symptoms and is resting comfortably on re-evaluation. Patient will be p.o. challenged and then discharged home in stable condition with an antacid. Discharge Plan Discharge Clinical Impression: Acute nausea with nonbilious vomiting Gastritis Qualifiers: Gastritis type: unspecified gastritis Chronicity: unspecified Gastritis bleeding: without bleeding Qualified Code(s): K29.70 - Gastritis, unspecified, without bleeding Patient Disposition: Home, Self-Care Instructions: Gastritis (ED), Diet for Stomach Ulcers and Gastritis (ED), Acute Nausea and Vomiting (ED) Additional Instructions: Please follow-up with your primary care provider in the next 2-3 days for re-evaluation. Do not hesitate to return to the emergency room should you experience any acute worsening of your symptoms. Prescriptions: No Action ondansetron 4 mg tablet,disintegrating 4 mg PO Q8H PRN (Reason: nausea and vomiting) Qty: 20 RF: 0 lorazepam [Ativan] 1 mg tablet 1 mg PO BEDTIME PRN (Reason: sleep) Qty: 10 RF: 0 dextroamphetamine-amphetamine [Adderall] 30 mg Tablet 30 mg PO DAILY RF: 0 albuterol sulfate [ProAir HFA] 90 mcg/actuation Hfa Aerosol Inhaler 2 puff INHALATION Q4-6H PRN (Reason: Shortness Of Breath Or Wheezing) RF: 0 hyoscyamine sulfate 0.125 mg tablet,disintegrating 0.125 mg PO QID PRN (Reason: dyspepsia) Qty: 10 RF: 0 ondansetron HCl [Zofran] 4 mg tablet 4 mg PO Q6H PRN (Reason: nausea and vomiting) Qty: 14 RF: 0 hydroxyzine HCl 50 mg tablet 50 mg PO TID PRN (Reason: nausea and vomiting) Qty: 10 RF: 0 ondansetron HCl [Zofran] 4 mg tablet 4 mg PO Q8H PRN (Reason: nausea and vomiting) Qty: 14 RF: 0 metoclopramide HCl [Reglan] 10 mg tablet 10 mg PO Q6H PRN (Reason: nausea and vomiting) Qty: 15 RF: 0 Referrals: Physician,None [Primary Care Provider] - 2 days Interventions: ED Discharge Assessment Last Done: 06/15/20 06:33 Discharge Date/Time: 06/15/20 06:39 [facility], [facility] Past Medical History Source: nursing notes reviewed Medical History ADHD Anxiety Asthma Ovarian cyst Surgical History S/P removal of ovarian cyst Social History Social History Household Members: Family Housing: Apartment Alcohol intake: unknown Smoking Status: Unknown if ever smoked Use of substances other than those prescribed or required for medical reasons: Yes Substance Use Type: Marijuana Substance Use Frequency: Chronic Longstanding Advance Directives: No service: No Current occupational status: employed
[2020-06-15 03:48] VITALS: BP 100/65; PULSE 83; RESP 18; O2SAT 98
[2020-06-15 06:00] VITALS: PULSE 74; RESP 16; O2SAT 100
[2020-06-15] MEDS: Magnesium Hydrox/Alum Hydrox 30 ML ORAL.SUSP PO (06:24)
[2020-06-15] MEDS: Lidocaine HCl Viscous 2 % 15 ML SOLUTION 10 ML MUCOUS MEM (06:24)
== END 2020-06-15 06:39 | disposition home or self-care (01) ==
PROVIDERS: Emergency Provider Student in an Organized Health Care Education/Training Program
DX: K29.70 Gastritis, unspecified, without bleeding (principal); F12.90 Cannabis use, unspecified, uncomplicated
CPT/HCPCS: 96372; 99284; J1200; J2765

== ENCOUNTER 2020-11-22 02:38 | Emergency (ER) | payer MEDICAID, SELFPAY ==
[2020-11-22 03:04] VITALS: BP 108/78; PULSE 67; RESP 16; TEMP 36.6; O2SAT 99; BMI 21.2
[2020-11-22 03:27] LABS: Glucose Urine UA NEG (NEG); Leukocyte Esterase Urine TRACE (NEG); Nitrite Urine NEG (NEG); Specific Gravity - Urine >= 1.030 (1.005-1.025); UACC Culture Trigger YES; Urine Blood NEG (NEG); Urine Ketones 5 MG/DL (NEG); Urine Protein TRACE MG/DL (NEG-TRACE)
[2020-11-22 03:28] LABS: Appearance Urine HAZY; Color Urine YELLOW
[2020-11-22 03:44] LABS: Amorphous Sediment Urine 2+ /LPF; Bacteria Urine TRACE /LPF; Mucus Urine 2+ /LPF; RBC Urine 0 /HPF (0); Squamous Epithelial Cell Urine 2+ /LPF
[2020-11-22 05:07] LABS: CT PCR NOT DETECTED (Not Detect.); NG PCR DETECTED (Not Detect.)
[2020-11-22 05:56] VITALS: BP 109/70; PULSE 77; RESP 16; TEMP 36.6; O2SAT 100
--- NOTE | 2020-11-22 06:41 | ED_ITS ---
HPI - Female Genitourinary General Chief complaint: Urogenital-Female Stated complaint: uro-genital female Time Seen by Provider: 11/22/20 06:41 Source: patient Mode of arrival: ambulatory History of Present Illness HPI Narrative: 20-year-old female history of asthma presents secondary to boyfriend being diagnosed with an STI and now presents because she was called for presence of gonorrhea. She otherwise denies any fever, chills, urinary symptoms. Related Data Home Medications Medication Instructions Recorded Confirmed albuterol sulfate 90 mcg/actuation 2 puff INHALATION Q4-6H PRN 01/14/20 01/14/20 aerosol inhaler (ProAir HFA) dextroamphetamine-amphetamine 30 30 mg PO DAILY 01/14/20 01/14/20 mg tablet (Adderall) Previous Rx's Medication Instructions Recorded hydroxyzine HCl 50 mg tablet 50 mg PO TID PRN #10 tab 01/16/20 hyoscyamine sulfate 0.125 mg 0.125 mg PO QID PRN #10 tab 01/16/20 disintegrating tablet lorazepam 1 mg tablet (Ativan) 1 mg PO BEDTIME PRN #10 tab 01/16/20 ondansetron 4 mg disintegrating 4 mg PO Q8H PRN #20 tab 01/16/20 tablet ondansetron HCl 4 mg tablet 4 mg PO Q6H PRN #14 tab 01/16/20 (Zofran) metoclopramide HCl 10 mg tablet 10 mg PO Q6H PRN #15 tab 06/14/20 (Reglan) ondansetron HCl 4 mg tablet 4 mg PO Q8H PRN #14 tab 06/14/20 (Zofran) hydroxyzine HCl 25 mg tablet 25 mg PO BID PRN #7 tab 11/22/20 metoclopramide HCl 10 mg tablet 10 mg PO Q6H PRN #8 tab 11/22/20 (Reglan) tramadol 50 mg tablet 50 mg PO BID PRN #4 tab 11/22/20 Allergies Allergy/AdvReac Type Severity Reaction Status Date / Time haloperidol [From Haldol] AdvReac Unknown Verified 11/22/20 15:14 Review of Systems Review of Systems: Pertinent positives and negatives as per HPI and 10pt ROS is otherwise negative. [facility] Past Medical History Source: nursing notes reviewed Medical History ADHD Anxiety Asthma Ovarian cyst Surgical History S/P removal of ovarian cyst Social History Social History Household Members: Family Housing: Apartment Alcohol intake: current Alcohol intake frequency: holidays/special occasions only Alcohol type: hard liquor Patient Tobacco Use Status: Never used Tobacco Substance Use Type: Marijuana Advance Directives: No Advance Directives Information Provided: No Patient : No service: No Current occupational status: employed Physical Exam Vital Signs: Vital Signs: Last Vital Signs Temp 97.9 F 11/22/20 05:56 Pulse 77 11/22/20 05:56 Resp 16 11/22/20 05:56 BP 109/70 11/22/20 05:56 Pulse Ox 100 11/22/20 05:56 Body Mass Index 21.2 VITAL SIGNS: Reviewed. GENERAL: Well developed, well nourished, in no acute distress. HEAD: Normocephalic/atraumatic EYES: PERRLA, EOMI LUNGS: Normal breath sounds. SpO2<100> CARDIOVASCULAR: Regular rate and rhythm without noted murmurs ABDOMEN: Soft, non-tender, non-distended with bowel sounds NEUROLOGIC: Alert and oriented x 4. Course Course Course Narrative: 20F with history and clinical presentation c/w partner related STI treatment. On review of testing patient is positive for gonorrhea and was treated as per CDC guidelines and then discharged in stable condition. MDM - Female Genitourinary Lab Data Labs: Lab Results 11/22/20 11/22/20 Range/Units 03:16 03:16 Urine Color YELLOW Urine Appearance HAZY Urine pH 6.0 (5.0-8.0) Ur Specific [place] >= 1.030 H (1.005-1.025) Urine Protein TRACE (NEG-TRACE) MG/DL Urine Glucose (UA) NEG (NEG) MG/DL Urine Ketones 5 (NEG) MG/DL Urine Blood NEG (NEG) Urine Nitrite NEG (NEG) Ur Leukocyte Esterase TRACE H (NEG) Urine RBC 0 (0) /HPF Urine WBC 5-9 H (0-4) /HPF Ur Squamous Epith Cells 2+ /LPF Amorphous Sediment 2+ /LPF Urine Bacteria TRACE /LPF Urine Mucus 2+ /LPF Chlam trachomat DNA PCR NOT DETECTED (Not Detect.) N.gonorrhoeae DNA (PCR) DETECTED A (Not Detect.) Discharge Plan Discharge Clinical Impression: Gonorrhea Patient Disposition: Home, Self-Care Instructions: Sexually Transmitted Diseases (ED), Safe Sex Practices (ED) Additional Instructions: Follow-up with your primary care provider in the next 2-3 days for re- evaluation. Return to the ER for acute worsening of symptoms. Prescriptions: No Action ondansetron 4 mg tablet,disintegrating 4 mg PO Q8H PRN (Reason: nausea and vomiting) Qty: 20 RF: 0 lorazepam [Ativan] 1 mg tablet 1 mg PO BEDTIME PRN (Reason: sleep) Qty: 10 RF: 0 dextroamphetamine-amphetamine [Adderall] 30 mg Tablet 30 mg PO DAILY RF: 0 albuterol sulfate [ProAir HFA] 90 mcg/actuation Hfa Aerosol Inhaler 2 puff INHALATION Q4-6H PRN (Reason: Shortness Of Breath Or Wheezing) RF: 0 hyoscyamine sulfate 0.125 mg tablet,disintegrating 0.125 mg PO QID PRN (Reason: dyspepsia) Qty: 10 RF: 0 ondansetron HCl [Zofran] 4 mg tablet 4 mg PO Q6H PRN (Reason: nausea and vomiting) Qty: 14 RF: 0 hydroxyzine HCl 50 mg tablet 50 mg PO TID PRN (Reason: nausea and vomiting) Qty: 10 RF: 0 ondansetron HCl [Zofran] 4 mg tablet 4 mg PO Q8H PRN (Reason: nausea and vomiting) Qty: 14 RF: 0 metoclopramide HCl [Reglan] 10 mg tablet 10 mg PO Q6H PRN (Reason: nausea and vomiting) Qty: 15 RF: 0 metoclopramide HCl [Reglan] 10 mg tablet 10 mg PO Q6H PRN (Reason: nausea and vomiting) Qty: 8 RF: 0 hydroxyzine HCl 25 mg tablet 25 mg PO BID PRN (Reason: anxiety) Qty: 7 RF: 0 tramadol 50 mg tablet 50 mg PO BID PRN (Reason: pain) Qty: 4 RF: 0 Referrals: Physician,Unknown [Primary Care Provider] - 2 days Interventions: ED Discharge Assessment Last Done: 11/22/20 06:54 Discharge Date/Time: 11/22/20 06:54
[2020-11-22] MEDS: cefTRIAXone sodium 500 MG, Lidocaine HCl 1 % MPF 1 ML IM (06:49)
== END 2020-11-22 06:54 | disposition home or self-care (01) ==
PROVIDERS: Emergency Provider Student in an Organized Health Care Education/Training Program
DX: A54.9 Gonococcal infection, unspecified (principal)
CPT/HCPCS: 81001; 87086; 87491; 87591; 96372; 99284; J0696

== ENCOUNTER 2020-11-22 15:07 | Emergency (ER) | payer MEDICAID, SELFPAY ==
--- NOTE | ~2020-11-22 | CT_ITS ---
EXAMINATION: CT ABDOMEN AND PELVIS WITH CONTRAST CLINICAL INFORMATION: abdominal pain COMPARISON: 06/14/2020 TECHNIQUE: Multidetector volumetric imaging was performed from the superior aspect of the liver through the pubic symphysis following administration of 85 cc of Omnipaque intravenous contrast Sagittal and coronal reformatted images were obtained on the technologist workstation.. This CT examination was performed using dose optimization techniques as appropriate, variously including the following: *Automated exposure control *Adjustment of mA and/or kV according to patient size (this includes techniques or standardized protocols for targeted exams where dose is matched to indication/reason for exam; i.e. extremities or head) *Use of iterative reconstruction technique DLP: 451 mGy-cm FINDINGS: LUNG BASES: The visualized lung bases are unremarkable. LIVER, GALLBLADDER, AND BILIARY TREE: The liver is normal in size, shape, and attenuation. No focal hepatic lesion or biliary ductal dilatation is present. The gallbladder is unremarkable with no evidence of radiopaque gallstones, gallbladder wall thickening, or obvious pericholecystic inflammatory changes. PANCREAS: Unremarkable. SPLEEN: Unremarkable. ADRENAL GLANDS: Unremarkable. KIDNEYS AND URETERS: The kidneys are normal in size, shape, and attenuation. No hydronephrosis, hydroureter, or calculi seen. No perinephric stranding. BLADDER: Decompressed GASTROINTESTINAL TRACT: Colon is decompressed which makes evaluation for subtle colonic wall thickening difficult. I do not appreciate any definitive pericolonic inflammatory change or fluid. Normal-appearing appendix in the right lower quadrant. Small bowel unremarkable. ABDOMINAL WALL: No significant hernia is appreciated. LYMPHOVASCULAR STRUCTURES: No lymphadenopathy. The aorta is unremarkable. PELVIC VISCERA: Physiologic changes OSSEOUS STRUCTURES: Unremarkable. CT/CT abdomen pelvis w con IMPRESSION: I do not appreciate any acute intra-abdominal process. Colon is decompressed which makes evaluation for subtle colonic findings difficult no definitive pericolonic inflammatory change. Physiologic changes otherwise.
[2020-11-22 15:09] VITALS: BP 143/89; PULSE 76; RESP 16; TEMP 35.9; O2SAT 94; BMI 21.2
[2020-11-22] MEDS: Ondansetron ODT 4 MG TAB.RAPDIS TRANSLINGU (15:16)
[2020-11-22 15:58] LABS: Basophils Percent Auto 0.2 % (0-2); Eosinophils Percent Auto 0.1 % (0-4); Hematocrit 39.7 % (37-47); Hemoglobin 13.2 g/dl (12.0-16.0); Imm Gran Abs Auto 0.05 X10*3/uL (0.00-0.03); Imm Gran Pct Auto 0.4 % (0.0-0.4); Lymphocytes Absolute Auto 1.6 X10*3/uL (1.2-4.9); Lymphocytes Percent Auto 11.9 % (20-40); MANUAL DIFF FLAG NO; Mean Corpuscular HGB Conc 33.2 g/dl (31.0-35.0); Mean Corpuscular Volume 84.1 fL (80-98); Mean Platelet Volume 10.3 fL (9.4-12.3); Monocytes Absolute Auto 0.5 X10*3/uL (0.1-1.2); Monocytes Percent Auto 3.3 % (2-11); Neutrophils Absolute Auto 11.5 X10*3/uL (2.0-8.3); Neutrophils Percent Auto 84.1 % (45-73); Platelet Count 305 X10*3/uL (160-400); Red Blood Count 4.72 X10*6/uL (4.20-5.50); Red Cell Distribution Width 13.5 % (11.0-16.0); White Blood Count 13.7 X10*3/uL (4.8-10.8)
[2020-11-22 16:16] LABS: Anion Gap 17 (12-20); Blood Urea Nitrogen 12 mg/dL (9-16); Calcium 10.3 mg/dL (8.4-10.2); Carbon Dioxide 24 mmol/L (22-29); Chloride 107 mmol/L (96-108); Creatinine Clr Calc Pharmacy 102.2; Estimated Glomerular Filt Rate > 60; Glucose Random 148 mg/dL (60-115); Potassium 4.3 mmol/L (3.3-5.1); Sodium 144 mmol/L (135-145)
[2020-11-22 17:38] LABS: Glucose Urine UA NEG (NEG); Leukocyte Esterase Urine TRACE (NEG); Nitrite Urine NEG (NEG); PH 6.5 (5.0-8.0); Specific Gravity - Urine 1.025 (1.005-1.025); UACC Culture Trigger YES; Urine Blood NEG (NEG); Urine Ketones >=80 MG/DL (NEG); Urine Protein 1+ MG/DL (NEG-TRACE)
[2020-11-22 17:40] LABS: Appearance Urine HAZY; Color Urine YELLOW
--- NOTE | 2020-11-22 17:43 | ED_ITS ---
HPI - Abdominal Pain General Chief Complaint: Abdominal Pain Stated Complaint: vomitting, abd pain Time Seen by Provider: 11/22/20 17:28 Source: patient and family (mom) Mode of arrival: ambulatory Limitations: no limitations History of Present Illness HPI narrative: 20-year-old female with a history of ovarian cyst removal who was seen in the emergency room and treated for gonorrhea early this morning because boyfriend tested positive for gonorrhea, presents with abdominal pain that started this afternoon. She has vomited 7 times. She has been diagnosed with hyper and and this is cannabinoid syndrome, this feels worse. She took a warm shower and it did not help. She has no pelvic pain, no vaginal complaints, no vaginal discharge, or vaginal itching. She has no fevers. She is here with Mom who says that her presentation is similar to Related Data Home Medications Medication Instructions Recorded Confirmed albuterol sulfate 90 mcg/actuation 2 puff INHALATION Q4-6H PRN 01/14/20 01/14/20 aerosol inhaler (ProAir HFA) dextroamphetamine-amphetamine 30 30 mg PO DAILY 01/14/20 01/14/20 mg tablet (Adderall) Previous Rx's Medication Instructions Recorded hydroxyzine HCl 50 mg tablet 50 mg PO TID PRN #10 tab 01/16/20 hyoscyamine sulfate 0.125 mg 0.125 mg PO QID PRN #10 tab 01/16/20 disintegrating tablet lorazepam 1 mg tablet (Ativan) 1 mg PO BEDTIME PRN #10 tab 01/16/20 ondansetron 4 mg disintegrating 4 mg PO Q8H PRN #20 tab 01/16/20 tablet ondansetron HCl 4 mg tablet 4 mg PO Q6H PRN #14 tab 01/16/20 (Zofran) metoclopramide HCl 10 mg tablet 10 mg PO Q6H PRN #15 tab 06/14/20 (Reglan) ondansetron HCl 4 mg tablet 4 mg PO Q8H PRN #14 tab 06/14/20 (Zofran) Allergies Allergy/AdvReac Type Severity Reaction Status Date / Time haloperidol [From Haldol] AdvReac Unknown Verified 11/22/20 15:14 Physical Exam Vital Signs: Vital Signs: Last Vital Signs Temp 96.7 F L 09/04/21 15:09 Pulse 70 11/22/20 19:41 Resp 16 11/22/20 19:41 BP 152/107 H 11/22/20 19:41 Pulse Ox 98 11/22/20 19:41 Body Mass Index 21.2 Course Course Course Narrative: 20-year-old female who is yelling and squirming in pain, who is tender to touch and tender and guarding in her entire abdomen with a history of hyperemesis cannabinoid syndrome who has been vomiting today was treated earlier today for gonorrhea, presents for abominal Please alternate Tylenol and ibuprofen for pain. Take 1 or the other every 4 hours. For example, at midnight take 1000 mg of Tylenol, then at 4:00 a.m. take 800 mg ibuprofen, at 8:00 a.m. take 1000 mg of Tylenol, at noon take 800 mg of ibuprofen, at 4:00 p.m. take 1000 mg of Tylenol, at 8:00 p.m. take 800 mg of ibuprofen. Do not exceed 3000 mg of Tylenol in 24 hours. This method is proven to be as effective as an opioid for pain control.and vomiting. Patient given Reglan, Benadryl, Toradol, Ativan, and morphine. Patient's labs are remarkable for white blood cell count of 13.7 with a left shift. Patient was seen earlier today for gonorrhea and treated for gonorrhea. Patient has no vaginal complaints, no pelvic pain. Reevaluation(s) Reevaluation #1: Patient has required multiple doses of pain medication. On my reexamination, patient was not tender and guarding in any quadrant and we disc ussed discharge home. Patient stated she wanted imaging to know what was going on. Signed pt out to KAYLI Casanova, pending CT scan. MDM - Abdominal Pain Lab Data Result diagrams: 11/22/20 15:50 11/22/20 15:50 Labs: Lab Results 11/22/20 11/22/20 11/22/20 Range/Units 15:50 15:50 17:32 WBC 13.7 H (4.8-10.8) X10*3/uL RBC 4.72 (4.20-5.50) X10*6/uL Hgb 13.2 (12.0-16.0) g/dl Hct 39.7 (37-47) % MCV 84.1 (80-98) fL MCH 28.0 (27.0-33.0) pg MCHC 33.2 (31.0-35.0) g/dl RDW 13.5 (11.0-16.0) % Plt Count 305 (160-400) X10*3/uL MPV 10.3 (9.4-12.3) fL Immature Gran % (Auto) 0.4 (0.0-0.4) % Neut % (Auto) 84.1 H (45-73) % Lymph % (Auto) 11.9 L (20-40) % [place] % (Auto) 3.3 (2-11) % Eos % (Auto) 0.1 (0-4) % Baso % (Auto) 0.2 (0-2) % Lymph # (Auto) 1.6 (1.2-4.9) X10*3/uL [place] # (Auto) 0.5 (0.1-1.2) X10*3/uL Eos # (Auto) 0.0 (0.0-0.4) X10*3/uL Baso # (Auto) 0.0 (0.0-0.2) X10*3/uL Abs Immat Gran (auto) 0.05 H (0.00-0.03) X10*3/uL Absolute Neuts (auto) 11.5 H (2.0-8.3) X10*3/uL Absolute Nucleated RBC 0.000 (0.0-0.012) X10*3/uL Nucleated RBC % (auto) 0.0 (0.0-0.2) /100WBC Sodium 144 (135-145) mmol/L Potassium 4.3 (3.3-5.1) mmol/L Chloride 107 (96-108) mmol/L Carbon Dioxide 24 (22-29) mmol/L Anion Gap 17 (12-20) BUN 12 (9-16) mg/dL Creatinine 0.72 (0.5-1.4) mg/dL Estim Creat Clear Calc 102.2 Estimated GFR > 60 Random Glucose 148 H (60-115) mg/dL Calcium 10.3 H (8.4-10.2) mg/dL Total Bilirubin 0.8 (0.0-1.0) mg/dL Direct Bilirubin 0.3 (0.0-0.5) mg/dL AST 20 (5-31) U/L ALT 15 (0-31) U/L Alkaline Phosphatase 86 (39-117) U/L Total Protein 7.8 (6.5-8.0) g/dL Albumin 4.8 (3.5-5.0) g/dL Beta HCG, Quant < 2 mIU/mL Urine Color YELLOW Urine Appearance HAZY Urine pH 6.5 (5.0-8.0) Ur Specific [place] 1.025 (1.005-1.025) Urine Protein 1+ H (NEG-TRACE) MG/DL Urine Glucose (UA) NEG (NEG) MG/DL Urine Ketones >=80 (NEG) MG/DL Urine Blood NEG (NEG) Urine Nitrite NEG (NEG) Ur Leukocyte Esterase TRACE H (NEG) Urine RBC 0-2 (0) /HPF Urine WBC 1-4 (0-4) /HPF Ur Squamous Epith Cells 1+ /LPF Urine Bacteria NONE /LPF Urine Mucus TRACE /LPF 11/22/20 Range/Units Unknown WBC (4.8-10.8) X10*3/uL RBC (4.20-5.50) X10*6/uL Hgb (12.0-16.0) g/dl Hct (37-47) % MCV (80-98) fL MCH (27.0-33.0) pg MCHC (31.0-35.0) g/dl RDW (11.0-16.0) % Plt Count (160-400) X10*3/uL MPV (9.4-12.3) fL Immature Gran % (Auto) (0.0-0.4) % Neut % (Auto) (45-73) % Lymph % (Auto) (20-40) % [place] % (Auto) (2-11) % Eos % (Auto) (0-4) % Baso % (Auto) (0-2) % Lymph # (Auto) (1.2-4.9) X10*3/uL [place] # (Auto) (0.1-1.2) X10*3/uL Eos # (Auto) (0.0-0.4) X10*3/uL Baso # (Auto) (0.0-0.2) X10*3/uL Abs Immat Gran (auto) (0.00-0.03) X10*3/uL Absolute Neuts (auto) (2.0-8.3) X10*3/uL Absolute Nucleated RBC (0.0-0.012) X10*3/uL Nucleated RBC % (auto) (0.0-0.2) /100WBC Sodium (135-145) mmol/L Potassium (3.3-5.1) mmol/L Chloride (96-108) mmol/L Carbon Dioxide (22-29) mmol/L Anion Gap (12-20) BUN (9-16) mg/dL Creatinine (0.5-1.4) mg/dL Estim Creat Clear Calc Estimated GFR Random Glucose (60-115) mg/dL Calcium (8.4-10.2) mg/dL Total Bilirubin Cancelled (0.0-1.0) mg/dL Direct Bilirubin Cancelled (0.0-0.5) mg/dL AST Cancelled (5-31) U/L ALT Cancelled (0-31) U/L Alkaline Phosphatase Cancelled (39-117) U/L Total Protein Cancelled (6.5-8.0) g/dL Albumin Cancelled (3.5-5.0) g/dL Beta HCG, Quant mIU/mL Urine Color Urine Appearance Urine pH (5.0-8.0) Ur Specific [place] (1.005-1.025) Urine Protein (NEG-TRACE) MG/DL Urine Glucose (UA) (NEG) MG/DL Urine Ketones (NEG) MG/DL Urine Blood (NEG) Urine Nitrite (NEG) Ur Leukocyte Esterase (NEG) Urine RBC (0) /HPF Urine WBC (0-4) /HPF Ur Squamous Epith Cells /LPF Urine Bacteria /LPF Urine Mucus /LPF Discharge Plan Discharge Clinical Impression: Abdominal pain Qualifiers: Abdominal location: generalized Qualified Code(s): R10.84 - Generalized abdominal pain Prescriptions: No Action ondansetron 4 mg tablet,disintegrating 4 mg PO Q8H PRN (Reason: nausea and vomiting) Qty: 20 RF: 0 lorazepam [Ativan] 1 mg tablet 1 mg PO BEDTIME PRN (Reason: sleep) Qty: 10 RF: 0 dextroamphetamine-amphetamine [Adderall] 30 mg Tablet 30 mg PO DAILY RF: 0 albuterol sulfate [ProAir HFA] 90 mcg/actuation Hfa Aerosol Inhaler 2 puff INHALATION Q4-6H PRN (Reason: Shortness Of Breath Or Wheezing) RF: 0 hyoscyamine sulfate 0.125 mg tablet,disintegrating 0.125 mg PO QID PRN (Reason: dyspepsia) Qty: 10 RF: 0 ondansetron HCl [Zofran] 4 mg tablet 4 mg PO Q6H PRN (Reason: nausea and vomiting) Qty: 14 RF: 0 hydroxyzine HCl 50 mg tablet 50 mg PO TID PRN (Reason: nausea and vomiting) Qty: 10 RF: 0 ondansetron HCl [Zofran] 4 mg tablet 4 mg PO Q8H PRN (Reason: nausea and vomiting) Qty: 14 RF: 0 metoclopramide HCl [Reglan] 10 mg tablet 10 mg PO Q6H PRN (Reason: nausea and vomiting) Qty: 15 RF: 0 PMFSH Past Medical History Medical History ADHD Anxiety Asthma Ovarian cyst Surgical History S/P removal of ovarian cyst Social History Social History Household Members: Family Housing: Apartment Alcohol intake: current Alcohol intake frequency: holidays/special occasions only Alcohol type: hard liquor Patient Tobacco Use Status: Never used Tobacco Substance Use Type: Marijuana Advance Directives: No Advance Directives Information Provided: No Patient : No service: No Current occupational status: employed
[2020-11-22 17:46] LABS: Mucus Urine TRACE /LPF; RBC Urine 0-2 /HPF (0); Squamous Epithelial Cell Urine 1+ /LPF
[2020-11-22] MEDS: 0.9 % Sodium Chloride 1,000 ML 999 ML IV (17:57)
[2020-11-22] MEDS: Ketorolac Tromethamine 15 MG/ML VIAL IVPUSH (17:58)
[2020-11-22] MEDS: diphenhydrAMINE HCL 50 MG/ML VIAL IVPUSH (17:58)
[2020-11-22] MEDS: LORazepam 2 MG/ML VIAL IVPUSH (17:58)
[2020-11-22] MEDS: Metoclopramide HCl 10 MG/2 ML VIAL IVPUSH (17:58)
[2020-11-22 18:05] VITALS: BP 141/94; PULSE 108; RESP 16; O2SAT 98
[2020-11-22] MEDS: Morphine Sulfate 4 MG/ML CARTRIDGE IVPUSH ×2 (18:45→19:39)
[2020-11-22 19:41] VITALS: BP 152/107; PULSE 70; RESP 16; O2SAT 98
[2020-11-22] MEDS: LORazepam 2 MG/ML VIAL 1 MG IVPUSH (20:35)
[2020-11-22 20:55] LABS: Alanine Aminotransferase 15 U/L (0-31); Albumin Level 4.8 g/dL (3.5-5.0); Alkaline Phosphatase 86 U/L (39-117); Aspartate Amino Transferase 20 U/L (5-31); Bilirubin Direct 0.3 mg/dL (0.0-0.5); Bilirubin Total 0.8 mg/dL (0.0-1.0); Total Protein 7.8 g/dL (6.5-8.0)
--- NOTE | 2020-11-22 21:02 | PC.NURSE ---
Patient calm at this time, reporting pain has improved after the Ativan. Unable to get urine sample for test. CT aware.
[2020-11-22 21:45] LABS: HCG Quantitative < 2 mIU/mL
[2020-11-22 22:22] VITALS: BP 155/101; PULSE 61; RESP 16; O2SAT 100
[2020-11-22] MEDS: iohexoL 350 MG/ML 100 ML INFUS..BTL IV (22:23)
== END 2020-11-23 00:16 | disposition home or self-care (01) ==
PROVIDERS: Emergency Provider Internal Medicine; PCP Health Educator
DX: R10.84 Generalized abdominal pain (principal); R11.2 Nausea with vomiting, unspecified; F12.90 Cannabis use, unspecified, uncomplicated; Z79.899 Other long term (current) drug therapy
CPT/HCPCS: 36415; 74177; 80048; 80076; 81001; 84702; 85025; 96361; 96374; 96375; 96376; 99284; J1200; J1885; J2060; J2270; J2765; Q9967

== ENCOUNTER 2020-12-10 18:48 | Emergency (ER) | payer OTHER, MEDICAID, SELFPAY ==
--- NOTE | ~2020-12-10 | XR_ITS ---
EXAMINATION: XR WRIST, LEFT CLINICAL INFORMATION: Wrist pain COMPARISON: None TECHNIQUE: Four views of the left wrist. FINDINGS: The bones and soft tissues are normal. No fracture. Alignment is anatomic with normal joint spaces. No erosions or abnormal soft tissue calcifications. XR/XR wrist LT min 3V IMPRESSION: Normal left wrist.
[2020-12-10 20:10] VITALS: BP 133/73; PULSE 91; RESP 16; TEMP 36.7; O2SAT 98; BMI 21.2
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
== END 2020-12-10 21:51 | disposition home or self-care (01) ==
PROVIDERS: Emergency Provider Emergency Medicine; PCP Health Educator
DX: S60.212A Contusion of left wrist, initial encounter (principal); M25.532 Pain in left wrist; F12.90 Cannabis use, unspecified, uncomplicated; V43.52XA Car driver injured in collision with other type car in traffic accident, initial encounter; Y93.9 Activity, unspecified; Y92.410 Unspecified street and highway as the place of occurrence of the external cause; Y99.9 Unspecified external cause status; Z79.899 Other long term (current) drug therapy
CPT/HCPCS: 73110; 99283

== ENCOUNTER 2023-01-05 19:11 | Emergency (ER) | payer MEDICAID, SELFPAY ==
--- NOTE | ~2023-01-05 | XR_ITS ---
EXAMINATION: XR WRIST, LEFT CLINICAL INFORMATION: Swelling. COMPARISON: None available. TECHNIQUE: PA, lateral, and oblique views of the left wrist. FINDINGS: The bone mineralization is normal. The joint spaces are maintained. There is a questionable cortical step-off along the dorsum of the distal radius at the level of the physis. Soft tissues are unremarkable. XR/XR wrist LT min 3V IMPRESSION: Questionable cortical step-off dorsum of the distal radius at the level of the physis. An undisplaced fracture is a consideration. Correlation needed as there is no given history of trauma.
[2023-01-05 19:27] VITALS: BP 134/82; PULSE 85; RESP 18; TEMP 37.2; O2SAT 97; BMI 31.9
--- NOTE | 2023-01-05 19:28 | ED.UPPEXIN ---
HPI - Extremity Injury (Upper) General Chief Complaint: Extremity Injury, Upper Stated Complaint: ? L wrist fracture Time Seen by Provider: 01/05/23 20:58 Source: patient Mode of arrival: ambulatory Limitations: no limitations History of Present Illness HPI narrative: Patient is a 22-year-old female right-hand dominant presenting to emergency department for evaluation of left wrist pain. She reports 4 days ago on 01/01/2023 she fell onto an outstretched hand while roller-skating. She was subsequently evaluated at urgent care she was advised that she had a a distal radius fracture. She was provided with a Velcro thumb spica splint prior to XR imaging. She has an appointment scheduled for follow-up with orthopedics in 6 days. She reports that despite using the thumb spica splint she continues to have significant pain that is unrelieved with elevation, ice, and 600 mg of ibuprofen every 8 hours. She denies numbness or tingling to the hand. Related Data Home Medications Medication Instructions Recorded Confirmed albuterol sulfate 90 mcg/actuation 2 puff inhalation Q4-6H PRN 01/14/20 01/14/20 aerosol inhaler (ProAir HFA) Shortness Of Breath Or Wheezing dextroamphetamine-amphetamine 30 30 mg PO DAILY 01/14/20 01/14/20 mg tablet (Adderall) Previous Rx's Medication Instructions Recorded hydroxyzine HCl 50 mg tablet 50 mg PO TID PRN nausea and 01/16/20 vomiting #10 tabs hyoscyamine sulfate 0.125 mg 0.125 mg PO QID PRN dyspepsia #10 01/16/20 disintegrating tablet tabs lorazepam 1 mg tablet (Ativan) 1 mg PO BEDTIME PRN sleep #10 tabs 01/16/20 ondansetron 4 mg disintegrating 4 mg PO Q8H PRN nausea and 01/16/20 tablet vomiting #20 tabs ondansetron HCl 4 mg tablet 4 mg PO Q6H PRN nausea and 01/16/20 (Zofran) vomiting #14 tabs metoclopramide HCl 10 mg tablet 10 mg PO Q6H PRN nausea and 06/14/20 (Reglan) vomiting #15 tabs ondansetron HCl 4 mg tablet 4 mg PO Q8H PRN nausea and 06/14/20 (Zofran) vomiting #14 tabs hydroxyzine HCl 25 mg tablet 25 mg PO BID PRN anxiety #7 tabs 11/22/20 metoclopramide HCl 10 mg tablet 10 mg PO Q6H PRN nausea and 11/22/20 (Reglan) vomiting #8 tabs tramadol 50 mg tablet 50 mg PO BID PRN pain #4 tabs 11/22/20 oxycodone 5 mg tablet 5 mg PO Q6H PRN pain #10 tabs 01/05/23 Allergies Allergy/AdvReac Type Severity Reaction Status Date / Time haloperidol [From Haldol] AdvReac Unknown Verified 11/22/20 15:14 Review of Systems Review of Systems: Yes all other systems are reviewed and are negative PMFSH Past Medical History Attestation statement: The following information was validated with the patient. Source: old records reviewed Medical History Ovarian cyst Anxiety ADHD Asthma Surgical History S/P removal of ovarian cyst Social History Social History Household Members: Family Housing: Apartment Alcohol intake: current Alcohol intake frequency: holidays/special occasions only Alcohol type: hard liquor Patient Tobacco Use Status: Never used Tobacco Substance Use Type: Marijuana Advance Directives: No Advance Directives Information Provided: No service: No Current occupational status: employed Physical Exam Vital Signs: Vital Signs: Last Vital Signs Temp 98.9 F 01/05/23 19:27 Pulse 85 01/05/23 19:27 Resp 18 01/05/23 19:27 BP 134/82 01/05/23 19:27 Pulse Ox 97 01/05/23 19:27 O2 Del Method Room Air 01/05/23 19:27 BMI result Body Mass Index 31.9 Appearance: Alert.?Oriented to person, place and time. No acute distress.?Normal affect. Eyes: Pupils equal, round and reactive to light.? ENT: Pharynx normal.?? Neck: Normal inspection.? Neck supple.?? CVS: Heart sounds normal. Normal heart rate and rhythm.? Pulses normal.?? Respiratory: No respiratory distress.? Lung sounds clear to auscultation bilaterally?? Abdomen: Soft and non-tender. Normoactive bowel sounds. ? Skin: Skin warm and dry.? Normal skin color.? Extremities: Localized swelling to the left wrist with 2+ radial pulse bilaterally Neuro: Moves all extremities spontaneously. Sensation intact bilaterally. Ambulates with normal steady gait. Course Course Course Narrative: RME - 22 yo right hand dominant female presents to the ER for evaluation of 09/27 left wrist pain after an injury on 01/01. She fell while rollerskating. Seen at Urgent Care and told she has a distal radius fracture. Was given velcro thumb spica splint. Has been taking ibuprofen, elevating and icing with no improvement in pain. Has hives on the hand and finger swelling. Plan: place in fiberglass splint, pain control. f/u with orthopedics as scheduled on 01/11 Medical Decision Making Medical Decision Making MDM Narrative: Patient is a 22-year-old female who presents emergency department for evaluation of traumatic left wrist pain. As per HPI she has received prior imaging abdomen urgent care which reportedly revealed a distal radius fracture, despite using the Velcro thumb spica splint she was provided and ibuprofen she continues to have significant pain to the wrist. Upon my examination there is no obvious deformity, localized swelling is present, radial pulses intact in the extremity is neurovascularly intact distally. XR imaging was obtained here which appears consistent with a distal radius fracture a most notably appreciated good lateral DU. Patient was placed in a volar splint, and provided with contact information for Orthopedics for outpatient follow-up. I advised the used rest, ice, acetaminophen/ibuprofen, and oxycodone for severe pain, we discussed a cautions with use of this medication, Mass Pat was reviewed no conflict for oxycodone. Reviewed worrisome signs and symptoms that would warrant re-evaluation in the emergency department. All questions answered. Stable for discharge. Differential Diagnosis Differential Diagnoses: The differential diagnosis associated with the presentation includes (Fracture, dislocation, sprain) Independent Interpretation I performed an independent interpretation of an: Plain X-Ray (As noted above) Radiology Impression Discussion of test interpretation with radiology: I have reviewed the radiologist's reading. Radiologist Impression: XR/XR wrist LT min 3V IMPRESSION: Questionable cortical step-off dorsum of the distal radius at the level of the physis. An undisplaced fracture is a consideration. Correlation needed as there is no given history of trauma Independent Historian Clinical information obtained from an independent historian. History obtained from or confirmed by: Parent (Mother present at bedside who confirms history) Prescription Management I considered prescription management with: Pain Medication Discharge Plan Discharge Clinical Impression: Distal radius fracture, left Patient Disposition: Home, Self-Care Additional Instructions: The splint must remain in place at all times. Please do not removed this until you are evaluated by orthopedics. It cannot get wet. If you develop increasing pain, numbness or tingling to the fingers, inability to move the fingers then this needs to be re-evaluated You can take ibuprofen 200 mg, 3 tablets (600mg) every 6-8 hours as needed for pain, in addition to Tylenol 500 mg, 2 tablets (1,000mg) every 4-6 hours as needed for pain, but not to exceed 3 doses daily (3,000mg).? I have additionally sent a prescription for oxycodone to your pharmacy. This is a narcotic medication, and it can be addictive. It should only be taken for severe pain. It may make you drowsy. Do not drive, drink alcohol, or work while taking this medication. Prescriptions: New oxycodone 5 mg tablet 5 mg PO Q6H PRN (Reason: pain) Qty: 10 0RF Rx Instructions: Partial Fill upon patient request. No Action ondansetron 4 mg tablet,disintegrating 4 mg PO Q8H PRN (Reason: nausea and vomiting) Qty: 20 0RF lorazepam [Ativan] 1 mg tablet 1 mg PO BEDTIME PRN (Reason: sleep) Qty: 10 0RF dextroamphetamine-amphetamine [Adderall] 30 mg Tablet 30 mg PO DAILY albuterol sulfate [ProAir HFA] 90 mcg/actuation Hfa Aerosol Inhaler 2 puff INHALATION Q4-6H PRN (Reason: Shortness Of Breath Or Wheezing) hyoscyamine sulfate 0.125 mg tablet,disintegrating 0.125 mg PO QID PRN (Reason: dyspepsia) Qty: 10 0RF ondansetron HCl [Zofran] 4 mg tablet 4 mg PO Q6H PRN (Reason: nausea and vomiting) Qty: 14 0RF hydroxyzine HCl 50 mg tablet 50 mg PO TID PRN (Reason: nausea and vomiting) Qty: 10 0RF Rx Instructions: PRN anxiety ondansetron HCl [Zofran] 4 mg tablet 4 mg PO Q8H PRN (Reason: nausea and vomiting) Qty: 14 0RF metoclopramide HCl [Reglan] 10 mg tablet 10 mg PO Q6H PRN (Reason: nausea and vomiting) Qty: 15 0RF metoclopramide HCl [Reglan] 10 mg tablet 10 mg PO Q6H PRN (Reason: nausea and vomiting) Qty: 8 0RF hydroxyzine HCl 25 mg tablet 25 mg PO BID PRN (Reason: anxiety) Qty: 7 0RF tramadol 50 mg tablet 50 mg PO BID PRN (Reason: pain) Qty: 4 0RF Referrals: Trevon Ruiz PA-C [Physician Medical Office Receptionist] - Interventions: ED Discharge Assessment Last Done: 01/05/23 22:24
== END 2023-01-05 23:07 | disposition home or self-care (01) ==
PROVIDERS: Emergency Provider Emergency Medicine
DX: S52.502A Unspecified fracture of the lower end of left radius, initial encounter for closed fracture (principal); M25.532 Pain in left wrist; W01.0XXA Fall on same level from slipping, tripping and stumbling without subsequent striking against object, initial encounter; Y93.9 Activity, unspecified; Y92.9 Unspecified place or not applicable; Y99.9 Unspecified external cause status
CPT/HCPCS: 29125; 73110; 99282; 99283

== ENCOUNTER 2023-12-13 22:41 | Emergency (ER) | payer OTHER, SELFPAY ==
--- NOTE | ~2023-12-13 | CT_ITS ---
EXAMINATION: CT ABDOMEN AND PELVIS WITHOUT CONTRAST CLINICAL INFORMATION: Abdominal pain. COMPARISON: November 22, 2020 TECHNIQUE: Multidetector volumetric imaging was performed from the superior aspect of the liver through the pubic symphysis. Sagittal and coronal reformatted images were obtained on the technologist's workstation. This CT examination was performed using dose optimization techniques as appropriate, variously including the following: *Automated exposure control *Adjustment of mA and/or kV according to patient size (this includes techniques or standardized protocols for targeted exams where dose is matched to indication/reason for exam; i.e. extremities or head) *Use of iterative reconstruction technique DLP: 1021 mGy-cm FINDINGS: LUNG BASES: The visualized lung bases are unremarkable. LIVER, GALLBLADDER, AND BILIARY TREE: The liver is normal in size, shape, and attenuation. No focal hepatic lesion or biliary ductal dilatation is present. The gallbladder is unremarkable with no evidence of radiopaque gallstones, gallbladder wall thickening, or obvious pericholecystic inflammatory changes. PANCREAS: Unremarkable. SPLEEN: Unremarkable. ADRENAL GLANDS: Unremarkable. KIDNEYS AND URETERS: The kidneys are normal in size, shape, and attenuation. No hydronephrosis, hydroureter, or calculi seen. No perinephric stranding. BLADDER: Unremarkable. GASTROINTESTINAL TRACT: The small and large bowel are unremarkable. The appendix is unremarkable. ABDOMINAL WALL: No significant hernia is appreciated. LYMPH NODES: Normal. VASCULAR: Unremarkable. PELVIC VISCERA: Unremarkable. OSSEOUS STRUCTURES: Unremarkable. CT/CT abdomen pelvis wo IV con IMPRESSION: No significant abnormality. Fleischner guidelines were followed. Electronically signed by: Pratik Jenkins MD 12/14/2023 04:55 AM EDT
[2023-12-13 22:47] VITALS: BP 137/96; PULSE 79; RESP 18; TEMP 36.5; O2SAT 98; BMI 31.0
[2023-12-13 23:20] LABS: MANUAL DIFF FLAG NO
[2023-12-13 23:22] LABS: Basophils Percent Auto 0.3 % (0-2); Eosinophils Absolute Auto 0.1 X10*3/uL (0.0-0.4); Eosinophils Percent Auto 0.6 % (0-4); Hemoglobin 14.8 g/dl (12.0-16.0); Imm Gran Abs Auto 0.04 X10*3/uL (0.00-0.03); Imm Gran Pct Auto 0.3 % (0.0-0.4); Lymphocytes Absolute Auto 3.1 X10*3/uL (1.2-4.9); Lymphocytes Percent Auto 22.2 % (20-40); Mean Corpuscular HGB Conc 32.9 g/dl (31.0-35.0); Mean Corpuscular Hemoglobin 27.8 pg (27.0-33.0); Mean Corpuscular Volume 84.6 fL (80.0-98.0); Mean Platelet Volume 10.2 fL (9.4-12.3); Monocytes Absolute Auto 0.6 X10*3/uL (0.1-1.2); Monocytes Percent Auto 4.5 % (2-11); Neutrophils Absolute Auto 9.9 x10*3/uL (2.0-8.3); Neutrophils Percent Auto 72.1 % (45-73); Platelet Count 304 X10*3/uL (160-400); Red Blood Count 5.32 X10*6/uL (4.20-5.50); Red Cell Distribution Width 14.6 % (11.0-16.0); White Blood Count 13.7 X10*3/uL (4.8-10.8)
[2023-12-13 23:23] LABS: Appearance Urine Cloudy; Color Urine Dark Yellow; Glucose Urine UA Negative (Negative); Leukocyte Esterase Urine Negative (Negative); Nitrite Urine Negative (Negative); Specific Gravity - Urine >= 1.030 (1.005-1.025); UMIC TRIGGER UACC YES; Urine Blood Negative (Negative); Urine Ketones Trace mg/dL (Negative); Urine Protein 30 (1+) mg/dL (Neg-Trace)
[2023-12-13 23:25] LABS: Urine Pregnancy NEGATIVE (NEGATIVE)
[2023-12-13 23:26] LABS: UPreg QC Valid YES
[2023-12-13 23:32] LABS: Bacteria Urine 4+ (None Seen); Granular Casts Urine Present; Hyaline Casts Urine 0-2 /LPF (0-2); RBC Urine 0-2 /HPF (0-2); Squamous Epithelial Cell Urine >20 /HPF (0-2); WBC Urine 0-5 /HPF (0-5)
[2023-12-13 23:38] LABS: Alanine Aminotransferase 24 U/L (0-31); Albumin Level 4.6 g/dL (3.5-5.0); Alkaline Phosphatase 100 U/L (39-117); Anion Gap 11 (12-20); Aspartate Amino Transferase 19 U/L (5-31); Bilirubin Total 0.4 mg/dL (0.0-1.0); Blood Urea Nitrogen 11 mg/dL (9-16); Calcium 9.8 mg/dL (8.4-10.2); Carbon Dioxide 27 mmol/L (22-29); Chloride 106 mmol/L (96-108); Creatinine Clr Calc Pharmacy 112.4; Estimated Glomerular Filt Rate > 60; Glucose Random 92 mg/dL (60-115); Potassium 4.4 mmol/L (3.3-5.1); Sodium 140 mmol/L (135-145); Total Protein 7.7 g/dL (6.5-8.0)
--- NOTE | 2023-12-14 01:21 | ED_ITS ---
HPI - Female Genitourinary General Chief complaint: Urogenital-Female Stated complaint: lower abd pain Time Seen by Provider: 12/14/23 01:21 Source: patient Mode of arrival: ambulatory Limitations: no limitations History of Present Illness ED Provider: brisa MARIN Narrative: Patient with chronic lower abdominal pain since age 16 been to different hospital had multiple workups in the past was seen here in the past had 4 CT scans and ultrasound done which were negative was seen at [facility] 4 months ago showed small ovarian cyst comes here for lower abdominal pain for last few days feels better after taking hot showers smokes marijuana 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 Related Data Home Medications ?Medication ?Instructions ?Recorded ?Confirmed albuterol sulfate 90 mcg/actuation 2 puff inhalation Q4-6H PRN 01/14/20 01/14/20 aerosol inhaler (ProAir HFA) Shortness Of Breath Or Wheezing dextroamphetamine-amphetamine 30 30 mg PO DAILY 01/14/20 01/14/20 mg tablet (Adderall) Previous Rx's ?Medication ?Instructions ?Recorded hydroxyzine HCl 50 mg tablet 50 mg PO TID PRN nausea and 01/16/20 vomiting #10 tabs hyoscyamine sulfate 0.125 mg 0.125 mg PO QID PRN dyspepsia #10 01/16/20 disintegrating tablet tabs lorazepam 1 mg tablet (Ativan) 1 mg PO BEDTIME PRN sleep #10 tabs 01/16/20 ondansetron 4 mg disintegrating 4 mg PO Q8H PRN nausea and 01/16/20 tablet vomiting #20 tabs ondansetron HCl 4 mg tablet 4 mg PO Q6H PRN nausea and 01/16/20 (Zofran) vomiting #14 tabs metoclopramide HCl 10 mg tablet 10 mg PO Q6H PRN nausea and 06/14/20 (Reglan) vomiting #15 tabs ondansetron HCl 4 mg tablet 4 mg PO Q8H PRN nausea and 06/14/20 (Zofran) vomiting #14 tabs hydroxyzine HCl 25 mg tablet 25 mg PO BID PRN anxiety #7 tabs 11/22/20 metoclopramide HCl 10 mg tablet 10 mg PO Q6H PRN nausea and 11/22/20 (Reglan) vomiting #8 tabs tramadol 50 mg tablet 50 mg PO BID PRN pain #4 tabs 11/22/20 oxycodone 5 mg tablet 5 mg PO Q6H PRN pain #10 tabs 01/05/23 cefuroxime axetil 250 mg tablet 250 mg PO BID 7 days #14 tabs 12/14/23 dicyclomine 20 mg tablet 20 mg PO TID #20 tabs 12/14/23 Allergies Allergy/AdvReac Type Severity Reaction Status Date / Time haloperidol [From Haldol] AdvReac Unknown Verified 12/13/23 22:48 Review of Systems 2 Review of Systems: Yes all other systems are reviewed and are negative [facility] Past Medical History Medical History Ovarian cyst Anxiety ADHD Asthma Surgical History S/P removal of ovarian cyst Social History Social History Household Members: Family Housing: Apartment Unable to assess alcohol history related to: Unknown Alcohol intake: current Alcohol intake frequency: holidays/special occasions only Alcohol type: hard liquor Patient Tobacco Use Status: Never used Tobacco Substance Use Type: Marijuana Advance Directives: No Advance Directives Information Provided: No Do you have a plan to hurt others: No Plan service: No Current occupational status: employed Physical Exam 2 Vital Signs: Vital Signs: Last Vital Signs Temp 98.1 F 12/14/23 05:35 Pulse 73 12/14/23 05:35 Resp 16 12/14/23 05:35 BP 135/86 12/14/23 05:35 Pulse Ox 100 12/14/23 05:35 O2 Del Method Room Air 12/14/23 05:35 BMI result Body Mass Index 31.0 Appearance: Alert. Oriented X3. No acute distress. Eyes: No pallor or icterus ENT: Pharynx normal. Oral Mucosa moist Neck: Normal inspection. Neck supple. CVS: Normal heart rate and rhythm. Pulses normal. Respiratory: No respiratory distress. Equal air entry bilateral, no wheezing/rales/rhonchi Abdomen: Soft and diffuse tenderness no rebound tenderness or guarding Bowel sounds are present, no mass palpable, no CVA tenderness Skin: Skin warm and dry. Normal skin color. Normal skin turgor. Extremities: No lower extremity edema. No calf tenderness Neuro: Oriented X 3. No motor deficit. Medications Administered Discontinued Medications Generic Name Dose Route Start Last Admin Trade Name Marquita PRN Reason Stop Dose Admin Cefuroxime Axetil 250 mg 12/14/23 05:48 12/14/23 05:54 Cefuroxime Axetil 250 Mg Tablet PO 12/14/23 05:49 250 mg ONCE ONE Administration Sodium Chloride 1,000 mls @ 999 mls/hr 12/14/23 01:54 12/14/23 03:08 Ns IV 12/14/23 02:54 Infused .Q1H1M ONE Infusion Ketorolac Tromethamine 30 mg 12/14/23 01:54 12/14/23 02:05 Ketorolac Tromethamine 30 Mg/Ml Vial IVPUSH 12/14/23 01:55 30 mg ONCE ONE Administration Lorazepam 1 mg 12/14/23 01:54 12/14/23 02:06 Lorazepam 2 Mg/Ml Vial IVPUSH 12/14/23 01:55 1 mg ONCE ONE Administration Medical Decision Making Medical Decision Making [facility] [place] Narrative: Patient with chronic abdominal pain for last [address] scans and ultrasound essentially negative comes here for similar pain patient just had ultrasound done 4 months ago at [facility] patient was advised not to have imaging studies at this time but insisting so will do CT scan [address] scan negative no free fluid in the pelvis patient has been sleeping without any significant distress likely patient has pain from menstruation/IBS/use of cannabis Patient and patient's mother asking for antibiotic for UTI although it is contaminated even then they want antibiotics will give cefuroxime nurse aware about this patient has slept all night without any vomiting Differential Diagnosis Differential Diagnoses: The differential diagnosis associated with the presentation includes Lab Data [facility] Lab Attestation statement: I reviewed the patient's lab results. 12/13/23 23:16 12/13/23 23:16 Labs: Lab Results 12/13/23 Range/Units 23:16 WBC 13.7 H (4.8-10.8) X10*3/uL RBC 5.32 (4.20-5.50) X10*6/uL Hgb 14.8 (12.0-16.0) g/dl Hct 45.0 (37.0-47.0) % MCV 84.6 (80.0-98.0) fL MCH 27.8 (27.0-33.0) pg MCHC 32.9 (31.0-35.0) g/dl RDW 14.6 (11.0-16.0) % Plt Count 304 (160-400) X10*3/uL MPV 10.2 (9.4-12.3) fL Immature Gran % (Auto) 0.3 (0.0-0.4) % Neut % (Auto) 72.1 (45-73) % Lymph % (Auto) 22.2 (20-40) % [place] % (Auto) 4.5 (2-11) % Eos % (Auto) 0.6 (0-4) % Baso % (Auto) 0.3 (0-2) % Lymph # (Auto) 3.1 (1.2-4.9) X10*3/uL [place] # (Auto) 0.6 (0.1-1.2) X10*3/uL Eos # (Auto) 0.1 (0.0-0.4) X10*3/uL Baso # (Auto) 0.0 (0.0-0.2) X10*3/uL Abs Immat Gran (auto) 0.04 H (0.00-0.03) X10*3/uL Absolute Neuts (auto) 9.9 H (2.0-8.3) x10*3/uL Absolute Nucleated RBC 0.000 (0.0-0.012) X10*3/uL Nucleated RBC % (auto) 0.0 (0.0-0.2) /100WBC Sodium 140 (135-145) mmol/L Potassium 4.4 (3.3-5.1) mmol/L Chloride 106 (96-108) mmol/L Carbon Dioxide 27 (22-29) mmol/L Anion Gap 11 L (12-20) BUN 11 (9-16) mg/dL Creatinine 0.77 (0.5-1.4) mg/dL Estim Creat Clear Calc 112.4 Estimated GFR > 60 Random Glucose 92 (60-115) mg/dL Calcium 9.8 (8.4-10.2) mg/dL Total Bilirubin 0.4 (0.0-1.0) mg/dL AST 19 (5-31) U/L ALT 24 (0-31) U/L Alkaline Phosphatase 100 (39-117) U/L Total Protein 7.7 (6.5-8.0) g/dL Albumin 4.6 (3.5-5.0) g/dL Urine Color Dark Yellow Urine Appearance Cloudy Urine pH 6.0 (5.0-9.0) Ur Specific [place] >= 1.030 H (1.005-1.025) Urine Protein 30 (1+) H (Neg-Trace) mg/dL Urine Glucose (UA) Negative (Negative) mg/dL Urine Ketones Trace (Negative) mg/dL Urine Blood Negative (Negative) Urine Nitrite Negative (Negative) Ur Leukocyte Esterase Negative (Negative) Urine RBC 0-2 (0-2) /HPF Urine WBC 0-5 (0-5) /HPF Ur Squamous Epith Cells >20 (0-2) /HPF Urine Bacteria 4+ (None Seen) Hyaline Casts 0-2 (0-2) /LPF Granular Casts Present Urine Test NEGATIVE (NEGATIVE) Independent Interpretation I performed an independent interpretation of an: CT Scan Radiology Impression Discussion of test interpretation with radiology: I have reviewed the radiologist's reading. Radiologist Impression: [place] [id number] CT Scan Report Signed Patient: Darleen Abraham MR#: [id number] : 2000 Acct:[id number] Age/Sex: 23 / F ADM Date: 12/14/23 Loc: .ED Attending Dr: Ordering Physician: Rogerio Paul MD Date of Service: 12/14/23 Procedure(s): CT abdomen pelvis wo IV con Accession Number(s): [id number] cc: Physician,None ; Rogerio Paul MD~ EXAMINATION: CT ABDOMEN AND PELVIS WITHOUT CONTRAST CLINICAL INFORMATION: Abdominal pain. COMPARISON: November 22, 2020 TECHNIQUE: Multidetector volumetric imaging was performed from the superior aspect of the liver through the pubic symphysis. Sagittal and coronal reformatted images were obtained on the technologist's workstation. This CT examination was performed using dose optimization techniques as appropriate, variously including the following: *Automated exposure control *Adjustment of mA and/or kV according to patient size (this includes techniques or standardized protocols for targeted exams where dose is matched to indication/reason for exam; i.e. extremities or head) *Use of iterative reconstruction technique DLP: 1021 mGy-cm FINDINGS: LUNG BASES: The visualized lung bases are unremarkable. LIVER, GALLBLADDER, AND BILIARY TREE: The liver is normal in size, shape, and attenuation. No focal hepatic lesion or biliary ductal dilatation is present. The gallbladder is unremarkable with no evidence of radiopaque gallstones, gallbladder wall thickening, or obvious pericholecystic inflammatory changes. PANCREAS: Unremarkable. SPLEEN: Unremarkable. ADRENAL GLANDS: Unremarkable. KIDNEYS AND URETERS: The kidneys are normal in size, shape, and attenuation. No hydronephrosis, hydroureter, or calculi seen. No perinephric stranding. BLADDER: Unremarkable. GASTROINTESTINAL TRACT: The small and large bowel are unremarkable. The appendix is unremarkable. ABDOMINAL WALL: No significant hernia is appreciated. LYMPH NODES: Normal. VASCULAR: Unremarkable. PELVIC VISCERA: Unremarkable. OSSEOUS STRUCTURES: Unremarkable. CT/CT abdomen pelvis wo IV con IMPRESSION: No significant abnormality. Fleischner guidelines were followed. 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 as scheduled Prescriptions: New dicyclomine 20 mg tablet 20 mg PO TID Qty: 20 0RF cefuroxime axetil 250 mg tablet 250 mg PO BID 7 Days Qty: 14 0RF No Action ondansetron 4 mg tablet,disintegrating 4 mg PO Q8H PRN (Reason: nausea and vomiting) Qty: 20 0RF lorazepam [Ativan] 1 mg tablet 1 mg PO BEDTIME PRN (Reason: sleep) Qty: 10 0RF dextroamphetamine-amphetamine [Adderall] 30 mg Tablet 30 mg PO DAILY albuterol sulfate [ProAir HFA] 90 mcg/actuation Hfa Aerosol Inhaler 2 puff INHALATION Q4-6H PRN (Reason: Shortness Of Breath Or Wheezing) hyoscyamine sulfate 0.125 mg tablet,disintegrating 0.125 mg PO QID PRN (Reason: dyspepsia) Qty: 10 0RF ondansetron HCl [Zofran] 4 mg tablet 4 mg PO Q6H PRN (Reason: nausea and vomiting) Qty: 14 0RF hydroxyzine HCl 50 mg tablet 50 mg PO TID PRN (Reason: nausea and vomiting) Qty: 10 0RF Rx Instructions: PRN anxiety ondansetron HCl [Zofran] 4 mg tablet 4 mg PO Q8H PRN (Reason: nausea and vomiting) Qty: 14 0RF metoclopramide HCl [Reglan] 10 mg tablet 10 mg PO Q6H PRN (Reason: nausea and vomiting) Qty: 15 0RF metoclopramide HCl [Reglan] 10 mg tablet 10 mg PO Q6H PRN (Reason: nausea and vomiting) Qty: 8 0RF hydroxyzine HCl 25 mg tablet 25 mg PO BID PRN (Reason: anxiety) Qty: 7 0RF tramadol 50 mg tablet 50 mg PO BID PRN (Reason: pain) Qty: 4 0RF oxycodone 5 mg tablet 5 mg PO Q6H PRN (Reason: pain) Qty: 10 0RF Rx Instructions: Partial Fill upon patient request. Interventions: ED Discharge Assessment Last Done: 12/14/23 05:35 Print Language: Egyptian
[2023-12-14] MEDS: Ketorolac Tromethamine 30 MG/ML VIAL IVPUSH (02:05)
[2023-12-14] MEDS: 0.9 % Sodium Chloride 1,000 ML 999 ML IV (02:05)
[2023-12-14] MEDS: LORazepam 2 MG/ML VIAL 1 MG IVPUSH (02:06)
[2023-12-14 04:00] VITALS: BP 130/80; PULSE 59; RESP 12; TEMP 36.7; O2SAT 98
[2023-12-14 05:35] VITALS: BP 135/86; PULSE 73; RESP 16; TEMP 36.7; O2SAT 100
[2023-12-14] MEDS: cefuroxime axetiL 250 MG TABLET PO (05:54)
== END 2023-12-14 06:35 | disposition home or self-care (01) ==
PROVIDERS: Emergency Provider Internal Medicine
DX: G89.29 Other chronic pain (principal); R10.30 Lower abdominal pain, unspecified; F12.90 Cannabis use, unspecified, uncomplicated; Z79.899 Other long term (current) drug therapy
CPT/HCPCS: 36415; 74176; 80053; 81001; 81025; 85025; 96361; 96374; 96375; 99284; J1885; J2060

== ENCOUNTER 2025-02-24 10:04 | Emergency (ER) | payer OTHER, SELFPAY ==
--- NOTE | ~2025-02-24 | CT_ITS ---
CLINICAL HISTORY: abd pain of LLQ CT abdomen and pelvis with contrast Comparison: CT abdomen and pelvis 12/14/2023 Findings: The lung bases are clear. Unremarkable gallbladder and solid organs. No urolithiasis. No bowel obstruction, pneumoperitoneum, or pneumatosis. There is moderate wall thickening and edema throughout majority of the colon. Pelvic contents unremarkable. Normal appendix. No acute fracture. IMPRESSION: 1. Constellation of findings as detailed above most consistent with infectious or inflammatory colitis. 2. Chronic/nonacute findings as above. This document has been electronically signed by: Fran Chung MD on 02/24/2025 13:32:43
[2025-02-24 10:16] VITALS: BP 158/79; PULSE 70; RESP 18; TEMP 37.2; O2SAT 98; BMI 29.2
[2025-02-24 10:42] LABS: MANUAL DIFF FLAG NO
--- OUTSIDE RECORDS SUMMARY | 2025-02-24 10:44 | XMS_ITS | Clinical Summary ---
Author Organization [facility] Prior to 08/18/[address] [place] [id number] Care Team Providers Care Maintenance Superintendent Name Role Phone Unavailable Primary Care Provider Unavailabl e Allergies No known active allergies Medications Medication Sig Dispensed Refills Start Date End Date Status ondansetron (ZOFRAN-ODT) 8 MG disintegrating tablet Take 1 tablet (8 mg total) by mouth every 8 (eight) hours as needed for nausea. 20 tablet 0 02/27/2020 Active pantoprazole (PROTONIX) 20 MG tablet Take 1 tablet (20 mg total) by mouth daily. 30 tablet 0 02/27/2020 Active Social History Tobacco Use Types Packs/Day Years Used Date Smoking Tobacco: Never Assessed Sex and Gender Information Value Date Recorded Sex Assigned at Female 02/23/2020 8:47 PM EST Gender Identity Not on file Sexual Orientation Not on file Last Filed Vital Signs Vital Sign Reading Time Taken Comments Blood Pressure 153/103 02/27/2020 1:56 AM EST Pulse 70 02/27/2020 1:56 AM EST Temperature 36.7 C (98 F) 02/27/2020 1:56 AM EST Respiratory Rate 22 02/27/2020 1:56 AM EST Oxygen Saturation 100% 02/27/2020 1:56 AM EST Inhaled Oxygen Concentration - - Weight 49.9 kg (110 lb) 02/27/2020 1:56 AM EST Height 160 cm (5' 3 ) 02/27/2020 1:56 AM EST Body Mass Index 19.49 02/27/2020 1:56 AM EST Plan of Treatment Health Maintenance Due Date Last Done Comments Hepatitis B Vaccines (1 of 3 - 3-dose series) 1999 Hepatitis C Screening 1999 COVID-19 Vaccine (#1) 1999 Depression Screening 2011 Gonorrhea and Chlamydia Screening 2012 Preventative Health Evaluation 2017 DTap / Tdap / Td (1 - Tdap) 2018 Cervical Cancer Screening (P ap Smear) 2020 Influenza Vaccine (#1) 2024 Pneumococcal Vaccine Aged Out No long er eligible based on patient's age to complete this topic RSV Ped < 20 months Aged Out No longe r eligible based on patient's age to complete this topic
--- OUTSIDE RECORDS SUMMARY | 2025-02-24 10:44 | XMS_ITS | Clinical Summary ---
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 Active albuterol 90 mcg/actuation inhaler Inhale 2 puffs into the lungs every 6 (six) hours as needed for wheezing. Active cetirizine (ZYRTEC) 10 MG tablet Take 10 mg by mouth as needed for allergies. Active metoclopramide HCl (REGLAN) 5 MG tablet Take 5 mg by mouth as needed. Not sure of dose Active nortriptyline (PAMELOR) 25 MG capsule Take 1 capsule (25 mg total) by mouth nightly at bedtime. 30 capsule 5 05/21/2021 Active methylcellulose (CITRUCEL) 500 mg Tab Take 2 tablets (1,000 mg total) by mouth daily. 14 tablet 05/21/2021 Active Family History Medical History Relation Comments Crohn's disease Father Thyroid disease Father Irritable bowel syndrome Mother Thyroid disease Mother Relation Status Comments Father Mother Social History Tobacco Use Types Packs/Day Years Used Date Smoking Tobacco: Every Day Smokeless Tobacco: Never Education Answer Date Recorded Are you interested in more education? Not on [place] e 07/17/2022 Are you concerned about learning? Not on file 07/17/2022 No 07/17/2022 No 07/17/2022 Digital Access Answer Date Recorded No 08/15/2022 No 08/15/2022 No 08/15/2022 Reliable internet access at home? Not on file 08/15/2022 Device with a working camera? Not on file Comments Unknown Sex and Gender Information Value Date Recorded Sex Assigned at Female 09/19/2020 4:28 PM EDT Legal Sex Female 4:28 PM EDT Gender Identity Female 09/19/2020 4:28 PM EDT Sexual Orientation Straight 09/19/2020 4: 28 PM EDT Last Filed Vital Signs Vital Sign Reading Time Taken Comments Blood Pressure 119/81 05/21/2021 11:34 AM EST Pulse 77 05/21/2021 11:34 AM EST Temperature 37.1 C (98.7 F) 05/21/2021 11:34 AM EST Respiratory Rate - - Oxygen Saturation 99% 05/21/2021 11:34 AM EST Inhaled Oxygen Concentration - - Weight 71.7 kg (158 lb) 05/21/2021 11:34 AM EST Height 163.8 cm (5' 4.5 ) 12/25/2020 11:14 AM ED T Body Mass Index 26.7 12/25/2020 11:14 AM EDT Plan of Treatment Health Maintenance Due Date Last Done Comments DEPRESSION SCREENING 2011 SMOKING Hx and SMOKELESS TOBACCO SCREENING 2012 MENINGOCOCCAL VACCINES (B) (2 of 2 - Bexsero SCDM 2-dose series) 04/14/2016 10/13/2015 HEPATITIS C SCREENING 2017 HIV ONE-TIME SCREENING (18-65 YEARS) 2017 PNEUMOCOCCAL VACCINES (0-49 years) (1 of 2 - PCV) 2018 06/08/2000, 01/29/2000, 1999 PAP SMEAR 2020 INFLUENZA VACCINE (#1) 2024 8, 01/11/2014, 01/03/2013, Additional history exists COVID-19 VACCINE ( season) 2024 04/06/2021, 08/31/2020, 08/10/2020 Adult Td,Tdap Booster 10/08/2029 10/09/2019, 011 HIB VACCINES Completed 05/10/2000, 11/19, 1999, Additional history exists HPV VACCINES Completed 09/13/2012, 02/18, 07/23/2011 MENINGOCOCCAL VACCINES (ACWY) Completed 10/13/2015, 06/17/2010 HEPATITIS A VACCINES Aged Out No long er eligible based on patient's age to complete this topic Medical Devices Not on file [place] [address] [place] [address] [place] [address] [place] [address] [place] [address] [employer] Care Teams Steel Wheel Engraver Relationship Specialty Start Date End Date Anamaria Wood MD [address] [place] [phone] PCP - General Pediatrics 09/19/20 Additional Source Comments The information contained in this document represents components of the legal health record. It is not the complete legal health record.[facility]
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
[2025-02-24 10:46] LABS: Hematocrit 44.2 % (37.0-47.0); Hemoglobin 14.8 g/dl (12.0-16.0); Imm Gran Abs Auto 0.11 X10*3/uL (0.00-0.03); Imm Gran Pct Auto 0.6 % (0.0-0.4); Lymphocytes Absolute Auto 1.0 X10*3/uL (1.2-4.9); Mean Corpuscular HGB Conc 33.5 g/dl (31.0-35.0); Mean Corpuscular Hemoglobin 28.7 pg (27.0-33.0); Mean Corpuscular Volume 85.8 fL (80.0-98.0); NRBC Abs Auto 0.000 X10*3/uL (0.0-0.012); NRBC Pct Auto 0.0 /100WBC (0.0-0.2); Platelet Count 339 X10*3/uL (160-400); Red Blood Count 5.15 X10*6/uL (4.20-5.50); White Blood Count 18.1 X10*3/uL (4.8-10.8)
[2025-02-24 10:56] LABS: Alanine Aminotransferase 20 U/L (0-31); Albumin Level 5.2 g/dL (3.5-5.0); Alkaline Phosphatase 94 U/L (39-117); Anion Gap 14 (12-20); Aspartate Amino Transferase 21 U/L (5-31); Blood Urea Nitrogen 15 mg/dL (9-16); Calcium 9.7 mg/dL (8.4-10.2); Carbon Dioxide 21 mmol/L (22-29); Chloride 110 mmol/L (96-108); Creatinine Clr Calc Pharmacy 130.9; Estimated Glomerular Filt Rate > 60; Lipase 28 U/L (8-78); Potassium 4.1 mmol/L (3.3-5.1); Sodium 141 mmol/L (135-145); Total Protein 7.6 g/dL (6.5-8.0)
--- NOTE | 2025-02-24 11:20 | PC.NURSE ---
Pt very upset and tearful. Multiple episodes of liquid emesis since 0230 this AM. Pt states 10/10 lower abd pain, initally worse to LLQ but now everywhere. Hard to get information as pt is crying hysterically. UA collected. Awaiting provider eval. Family member at bedside.
[2025-02-24 11:22] LABS: Appearance Urine Cloudy; Glucose Urine UA Negative (Negative); PH 7.5 (5.0-9.0); Specific Gravity - Urine >= 1.030 (1.005-1.025); UMIC TRIGGER UACC YES
[2025-02-24 11:38] LABS: Other Crystals Urine Present
--- NOTE | 2025-02-24 12:14 | ED.NAVMDI ---
HPI - Nausea/Vomiting/Diarrhea General Chief complaint: Nausea/Vomiting/Diarrhea Stated complaint: vomitting, l sided pain, diarrhea Time Seen by Provider: 02/24/25 11:08 Source: patient, family ( mother at bedside), RN notes reviewed and old records reviewed Mode of arrival: ambulatory Limitations: no limitations History of Present Illness ED Provider: TAMIKO Orlando HPI Narrative: 26-year-old female with medical history of anxiety, ADHD, asthma, presents to the ED due to acute onset of severe nausea, vomiting, and LLQ pain that awoke her from sleep at approximately 230 this morning. Patient reports non stop clear emesis streaked with bright red blood. She attempted to drink a liquid IV this morning but was unable to keep it down. Patient endorses an episode of diarrhea this morning and is passing flatus. Patient then requested reglan and dilaudid for pain and nausea. I asked patient her history and she states she has had cyclical vomiting in the past but has not smoked marijuana in a few months . Denies sick contacts, recent travel, fevers, chills, chest pain, SOB, black/tarry stools, urinary symptoms. Related Data Home Medications ?Medication ?Instructions ?Recorded ?Confirmed albuterol sulfate 90 mcg/actuation 2 puff inhalation Q4-6H PRN 01/14/20 01/14/20 aerosol inhaler (ProAir HFA) Shortness Of Breath Or Wheezing dextroamphetamine-amphetamine 30 30 mg PO DAILY 01/14/20 01/14/20 mg tablet (Adderall) Previous Rx's ?Medication ?Instructions ?Recorded hydroxyzine HCl 50 mg tablet 50 mg PO TID PRN nausea and 01/16/20 vomiting #10 tabs hyoscyamine sulfate 0.125 mg 0.125 mg PO QID PRN dyspepsia #10 01/16/20 disintegrating tablet tabs lorazepam 1 mg tablet (Ativan) 1 mg PO BEDTIME PRN sleep #10 tabs 01/16/20 ondansetron 4 mg disintegrating 4 mg PO Q8H PRN nausea and 01/16/20 tablet vomiting #20 tabs ondansetron HCl 4 mg tablet 4 mg PO Q6H PRN nausea and 01/16/20 (Zofran) vomiting #14 tabs metoclopramide HCl 10 mg tablet 10 mg PO Q6H PRN nausea and 06/14/20 (Reglan) vomiting #15 tabs ondansetron HCl 4 mg tablet 4 mg PO Q8H PRN nausea and 06/14/20 (Zofran) vomiting #14 tabs hydroxyzine HCl 25 mg tablet 25 mg PO BID PRN anxiety #7 tabs 11/22/20 metoclopramide HCl 10 mg tablet 10 mg PO Q6H PRN nausea and 11/22/20 (Reglan) vomiting #8 tabs tramadol 50 mg tablet 50 mg PO BID PRN pain #4 tabs 11/22/20 oxycodone 5 mg tablet 5 mg PO Q6H PRN pain #10 tabs 01/05/23 cefuroxime axetil 250 mg tablet 250 mg PO BID 7 days #14 tabs 12/14/23 dicyclomine 20 mg tablet 20 mg PO TID #20 tabs 12/14/23 ondansetron HCl 4 mg tablet 4 mg PO BID PRN nausea and 02/24/25 vomiting 4 days #8 tabs Allergies Allergy/AdvReac Type Severity Reaction Status Date / Time haloperidol (From Haldol) AdvReac Unknown Verified 02/24/25 10:18 Review of Systems Review of Systems: Yes all other systems are reviewed and are negative PMFSH Past Medical History Attestation statement: The following information was validated with the patient. Source: old records reviewed, obtained from family ( mother at bedside corroborating history) and nursing notes reviewed Medical History Ovarian cyst Anxiety ADHD Asthma Surgical History S/P removal of ovarian cyst Social History Social History Household Members: Family Housing: Apartment Alcohol intake: current Alcohol intake frequency: does not drink Alcohol type: hard liquor Patient Tobacco Use Status: Never used Tobacco Smoked in Last 30 Days: No Use of substances other than those prescribed or required for medical reasons: No Substance Use Type: Marijuana Advance Directives: No Advance Directives Information Provided: No Do you have a plan to hurt others: No Plan Patient : No service: No Current occupational status: employed Physical Exam Vital Signs: Vital Signs: Last Vital Signs Temp 98.9 F 02/24/25 10:16 Pulse 70 02/24/25 10:16 Resp 18 02/24/25 10:16 BP 158/79 H 02/24/25 10:16 Pulse Ox 98 02/24/25 10:16 O2 Del Method Room Air 02/24/25 10:16 BMI result Body Mass Index 29.2 GENERAL APPEARANCE: ?AxOx4, non-toxic appearing, no acute distress. HEENT: ?NC, AT. MMM. EOMI, clear conjunctiva, oropharynx clear. NECK: ?Supple without lymphadenopathy.? No stiffness or restricted ROM. HEART:? Normal rate and regular rhythm, normal S1/S2, no m/r/g LUNGS:? CTAB, moving air well. No crackles or wheezes are heard. ABDOMEN: ?Soft, nondistended, no rigidity, no guarding, negative Noel's sign, no rebound tenderness, moderate TTP of LLQ, no overlying skin changes BACK: No CVAT, no obvious deformity. EXTREMITIES: ?Without cyanosis, clubbing or edema. NEUROLOGICAL: ?Grossly nonfocal. Alert and oriented, moving all 4 extremities. Skin: ?Warm and dry without any rash. Medications Administered Discontinued Medications Generic Name Dose Route Start Last Admin Trade Name Freq PRN Reason Stop Dose Admin Droperidol 1.25 mg 02/24/25 12:07 02/24/25 12:17 Droperidol 5 Mg/2 Ml Vial IVPUSH 02/24/25 12:08 1.25 mg ONCE ONE Administration Lactated Ringer's 1,000 mls @ 999 mls/hr 02/24/25 12:07 02/24/25 13:41 Lr IV 02/24/25 13:07 Infused .Q1H1M ONE Infusion Iohexol 100 ml 02/24/25 12:43 02/24/25 12:44 Iohexol 350 Mg/Ml 100 Ml Infus..Btl IV 02/24/25 12:44 85 ml ONCE ONE Administration Ondansetron HCl 4 mg 02/24/25 10:19 02/24/25 10:20 Ondansetron Odt 4 Mg Tab.Rapdis SUBLINGUAL 02/24/25 10:20 4 mg ONCE ONE Administration Medical Decision Making Medical Decision Making MDM Narrative: 26-year-old female with medical history of anxiety, ADHD, asthma, presents to the ED due to acute onset of severe nausea, vomiting, and LLQ pain that awoke her from sleep at approximately 230 this morning with constant clear emesis streaked with bright red blood. Patient uncomfortable on the stretcher due to nausea and abdominal pain and requested reglan and dilaudid . Patient explains cyclical vomiting in the past with these meds working for her, but reports she has not smoked marijuana in a few months. No sick contacts or recent travel. VS on initial observation - BP 158/79, pulse rate of 70, respiratory rate of 18, afebrile with oral temp of 98.9?, O2 saturation 98% on room air. On physical exam patient is nontoxic appearing however does appear uncomfortable on the stretcher due to nausea and abdominal pain, lungs clear to auscultation bilaterally, cardiac exam reveals normal rate and rhythm without murmurs/rubs / gallops, abdomen is soft, nondistended, no guarding, no rigidity, mildly diffusely tender throughout entire abdomen with focalized tenderness of the LLQ, no overlying skin changes. My interpretation of Labs are as follows: 18.1, with a left shift of 89.2, no evidence of anemia, with elevated chloride of 110, and low carbon dioxide of 21, Elevated random glucose of 155, total bilirubin of 1.2, elevated albumin at 5.2, hCG quant negative- patient's elevations most likely due to dehydration due to intense vomiting. UA reveals concentrated urine further supporting dehydration, 3+ urine protein, trace leukocyte esterase, with 11-20 squamous epithelial cells, 3+ urine bacteria this is most likely a contaminated specimen. CT abdomen/pelvis reveals moderate wall thickening and edema throughout the majority of the colon consistent with colitis. Patient with acute onset of nausea, vomiting and left lower quadrant pain that started at 2:30 a.m. this morning. Patient with a leukocytosis of 18.1. UA most likely contaminated specimen no indication for antibiotic therapy at this time, we will wait for culture and start patient on appropriate therapy if indicated. Patient received 1 L of fluids, 4 mg sublingual Zofran, 1.25 mg droperidol with significant improvement of her symptoms. Patient will be discharged with 5 day course of Zofran that she can use for nausea and vomiting. I have counseled patient on bowel rest and suggested 48 hours of clear liquids and advancing the diet as tolerated. I counseled patient to follow up with her primary care doctor to ensure resolution of her symptoms. Patient well enough to go home for self-care today. Patient and her mother are in agreement of the plan. Differential Diagnosis Differential Diagnoses: The differential diagnosis associated with the presentation includes Ectopic Gastritis Cyclical vomiting Cannabis hyperemesis syndrome Colitis Constipation Admission/Observation Consideration of admission/observation: Escalation of care including admission/observation considered patient afebrile, without tachypnea tachycardia, patient's symptoms improved significantly after medication with 1 L fluids, Zofran and droperidol, no indication for admission at this time. Lab Data MDM Lab Attestation statement: I reviewed the patient's lab results. 02/24/25 10:37 02/24/25 10:37 Labs: Lab Results 02/24/25 02/24/25 02/24/25 Range/Units 10:37 11:16 12:27 WBC 18.1 H (4.8-10.8) X10*3/uL RBC 5.15 (4.20-5.50) X10*6/uL Hgb 14.8 (12.0-16.0) g/dl Hct 44.2 (37.0-47.0) % MCV 85.8 (80.0-98.0) fL MCH 28.7 (27.0-33.0) pg MCHC 33.5 (31.0-35.0) g/dl RDW 13.5 (11.0-16.0) % Plt Count 339 (160-400) X10*3/uL MPV 10.4 (9.4-12.3) fL Immature Gran % (Auto) 0.6 H (0.0-0.4) % Neut % (Auto) 89.2 H (45-73) % Lymph % (Auto) 5.3 L (20-40) % [place] % (Auto) 4.6 (2-11) % Eos % (Auto) 0.1 (0-4) % Baso % (Auto) 0.2 (0-2) % Lymph # (Auto) 1.0 L (1.2-4.9) X10*3/uL [place] # (Auto) 0.8 (0.1-1.2) X10*3/uL Eos # (Auto) 0.0 (0.0-0.4) X10*3/uL Baso # (Auto) 0.0 (0.0-0.2) X10*3/uL Abs Immat Gran (auto) 0.11 H (0.00-0.03) X10*3/uL Absolute Neuts (auto) 16.1 H (2.0-8.3) x10*3/uL Absolute Nucleated RBC 0.000 (0.0-0.012) X10*3/uL Nucleated RBC % (auto) 0.0 (0.0-0.2) /100WBC Sodium 141 (135-145) mmol/L Potassium 4.1 (3.3-5.1) mmol/L Chloride 110 H (96-108) mmol/L Carbon Dioxide 21 L (22-29) mmol/L Anion Gap 14 (12-20) BUN 15 (9-16) mg/dL Creatinine 0.66 (0.5-1.4) mg/dL Estim Creat Clear Calc 130.9 Estimated GFR > 60 Random Glucose 155 H (60-115) mg/dL Calcium 9.7 (8.4-10.2) mg/dL Total Bilirubin 1.2 H (0.0-1.0) mg/dL Direct Bilirubin 0.3 (0.0-0.5) mg/dL AST 21 (5-31) U/L ALT 20 (0-31) U/L Alkaline Phosphatase 94 (39-117) U/L Total Protein 7.6 (6.5-8.0) g/dL Albumin 5.2 H (3.5-5.0) g/dL Lipase 28 (8-78) U/L Beta HCG, Quant < 2 mIU/mL Urine Color Yellow Urine Appearance Cloudy Urine pH 7.5 (5.0-9.0) Ur Specific [place] >= 1.030 H (1.005-1.025) Urine Protein 300 (3+) H (Neg-Trace) mg/dL Urine Glucose (UA) Negative (Negative) mg/dL Urine Ketones 15 (Negative) mg/dL Urine Blood Negative (Negative) Urine Nitrite Negative (Negative) Ur Leukocyte Esterase Trace H (Negative) Urine RBC 0-2 (0-2) /HPF Urine WBC 0-5 (0-5) /HPF Ur Squamous Epith Cells 11-20 (0-2) /HPF Other Crystals Present Urine Bacteria 3+ (None Seen) Hyaline Casts 0-2 (0-2) /LPF Influenza Type A (PCR) NEGATIVE (Negative) Influenza Type B (PCR) NEGATIVE (Negative) RSV RNA Qual (PCR) NEGATIVE (Negative) SARS-CoV-2 RNA (RT-PCR) NEGATIVE (Negative) Independent Interpretation I performed an independent interpretation of an: CT Scan Interpretation: I personally interpreted the CT abdomen and pelvis which reveals thickening of the colon, I agree with the radiologist's interpretation Radiology Impression Discussion of test interpretation with radiology: I have reviewed the radiologist's reading. Radiologist Impression: CT abdomen and pelvis Findings: The lung bases are clear. Unremarkable gallbladder and solid organs. No urolithiasis. No bowel obstruction, pneumoperitoneum, or pneumatosis. There is moderate wall thickening and edema throughout majority of the colon. Pelvic contents unremarkable. Normal appendix. No acute fracture. IMPRESSION: 1. Constellation of findings as detailed above most consistent with infectious or inflammatory colitis. 2. Chronic/nonacute findings as above. This document has been electronically signed by: Fran Chung MD on 02/24/2025 13:32:43 Dictated By: Fran Chung MD Signed By: <Electronically signed by Fran Chung MD in OV> 02/24/25 1333 Independent Historian Clinical information obtained from an independent historian. History obtained from or confirmed by: Parent (Mother at bedside) External Record Review External record reviewed: Inpatient record, Office record, Outpatient record, Prior outpatient labs and Prior outpatient radiology Prescription Management I considered prescription management with: Antibiotic ( patient with symptoms that started this morning, CT imaging reveals colitis, no indication for antibiotics at this time) Chronic Conditions Patient?s care impacted by: Other ( anxiety, ADHD, asthma) Social Determinants Patient?s care significantly limited by Social Determinants of Health including: Other Social Determinant of Health Discharge Plan Discharge Clinical Impression: Colitis Patient Disposition: Home, Self-Care Instructions: Acute Nausea and Vomiting (ED), Colitis (ED) Additional Instructions: you were evaluated in the emergency department due to nausea, vomiting and abdominal pain. Your CT abdomen and pelvis reveals thickening of the colon consistent with colitis. This is inflammation of your intestines and is self resolving. I recommend clear diet over the next 48 hours this includes liquids that you can see through, clear jello, clear broths, advancing to a bland diet, and then advancing the diet as tolerated with resolution of symptoms. I suggest that you get plenty of liquids including Gatorade, Powerade or Pedialyte. Please follow up with your primary care doctor to ensure resolution of your symptoms. you are being prescribed a 5 day course of Zofran that you can use for nausea and vomiting. Please return to the emergency department if you experience fevers over 100.4? that are not managed with Tylenol or Motrin, worsening abdominal pain, inability to have a bowel movement or pass gas, or any new/ worsening / concerning symptoms Prescriptions: New ondansetron HCl 4 mg tablet 4 mg PO BID PRN (Reason: nausea and vomiting) 4 Days Qty: 8 0RF No Action ondansetron 4 mg tablet,disintegrating 4 mg PO Q8H PRN (Reason: nausea and vomiting) Qty: 20 0RF lorazepam [Ativan] 1 mg tablet 1 mg PO BEDTIME PRN (Reason: sleep) Qty: 10 0RF dextroamphetamine-amphetamine [Adderall] 30 mg Tablet 30 mg PO DAILY albuterol sulfate [ProAir HFA] 90 mcg/actuation Hfa Aerosol Inhaler 2 puff INHALATION Q4-6H PRN (Reason: Shortness Of Breath Or Wheezing) hyoscyamine sulfate 0.125 mg tablet,disintegrating 0.125 mg PO QID PRN (Reason: dyspepsia) Qty: 10 0RF ondansetron HCl [Zofran] 4 mg tablet 4 mg PO Q6H PRN (Reason: nausea and vomiting) Qty: 14 0RF hydroxyzine HCl 50 mg tablet 50 mg PO TID PRN (Reason: nausea and vomiting) Qty: 10 0RF Rx Instructions: PRN anxiety ondansetron HCl [Zofran] 4 mg tablet 4 mg PO Q8H PRN (Reason: nausea and vomiting) Qty: 14 0RF metoclopramide HCl [Reglan] 10 mg tablet 10 mg PO Q6H PRN (Reason: nausea and vomiting) Qty: 15 0RF metoclopramide HCl [Reglan] 10 mg tablet 10 mg PO Q6H PRN (Reason: nausea and vomiting) Qty: 8 0RF hydroxyzine HCl 25 mg tablet 25 mg PO BID PRN (Reason: anxiety) Qty: 7 0RF tramadol 50 mg tablet 50 mg PO BID PRN (Reason: pain) Qty: 4 0RF oxycodone 5 mg tablet 5 mg PO Q6H PRN (Reason: pain) Qty: 10 0RF Rx Instructions: Partial Fill upon patient request. dicyclomine 20 mg tablet 20 mg PO TID Qty: 20 0RF cefuroxime axetil 250 mg tablet 250 mg PO BID 7 Days Qty: 14 0RF Stand Alone Forms: Work/School Release Print Language: Peruvian
[2025-02-24] MEDS: Lactated Ringers 1,000 ML 999 ML IV (12:17)
[2025-02-24] MEDS: iohexoL 350 MG/ML 100 ML INFUS..BTL IV (12:44)
[2025-02-24 13:37] LABS: Resp Syncy Virus RNA Qual PCR NEGATIVE (Negative); SARS COV2 PCR INHOUSE NEGATIVE (Negative)
[2025-02-24 14:07] VITALS: BP 160/99; PULSE 55; RESP 16; TEMP 36.6; O2SAT 98
[2025-02-24 14:08] VITALS: BP 160/99; PULSE 55; RESP 16; TEMP 36.6; O2SAT 98
== END 2025-02-24 14:15 | disposition home or self-care (01) ==
PROVIDERS: Emergency Provider Emergency Medicine; PCP Internal Medicine
DX: K52.9 Noninfective gastroenteritis and colitis, unspecified (principal); R11.2 Nausea with vomiting, unspecified; R10.32 Left lower quadrant pain; Z79.899 Other long term (current) drug therapy
CPT/HCPCS: 36415; 74177; 80048; 80076; 81001; 83690; 84702; 85025; 87637; 96361; 96374; 99284; J1790; J7120; Q9967

== ENCOUNTER → 2025-02-24 12:14 | Outpatient (BNV) | payer OTHER, SELFPAY | PROVIDERS: Emergency Provider Emergency Medicine; PCP Internal Medicine; Visit Provider Radiology Diagnostic Radiology | DX: R10.32 Left lower quadrant pain (principal) | CPT/HCPCS: 74177 ==